=== PATIENT | male | born 1940 | race Caucasian/White ===

== ENCOUNTER 2017-02-21 10:45 | Outpatient (CLI) | payer MEDICARE ==
--- OUTSIDE RECORDS SUMMARY | 2017-02-21 10:48 | XMS | Continuity of Care Document ---
:1940 Author Organization [facility] Care Team Providers Name Role Phone NOLOCAL, PRIMARY Primary Care Physician Unavailable Insurance Providers Payer Name Policy Number Subscriber Name Relationship [employer] PPO [id number] DAVID HERNANDEZ SELF/SAME PATIENT FOR LIFE 2ND TO [employer] [id number] DAVID HERNANDEZ SELF/SAME PATIENT Advance Directives Directive Response Recorded Date/Time Advance Directive? N 09/25/16 7:33am Living Will? N 09/25/16 7:33am Health Care Proxy? N 09/25/16 7:33am Healthcare Power of Receivables Specialist? N 09/25/16 7:33am Is the patient an Organ Donor? N 09/25/16 7:33am Chief Complaint and Reason for Visit Reason for Visit TICK BITE Problems Active Medical Problems Problem Onset Date Recorded Date Status Superficial foreign body of scrotum Unknown 09/25/16 Active Tick bite of scrotum Unknown 09/25/16 Active Active Surgical Problems Problem Onset Date Recorded Date Status S/P laparoscopic cholecystectomy Unknown 07/13/15 Active Medications Current Home Medications Medication Dose Units Route Directions Days/Qty Instructions Start Date ASCORBIC ACID (VITAMIN 500 MG PO EVERY DAY @ C 500 MG) 500 MG CHW 0900 ASPIRIN (ASPIRIN 81 MG 81 MG PO EVERY DAY @ (LOW DOSE)) 81 MG TAB 0900 COENZYME Q10 50 MG PO EVERY DAY @ (UBIDECARENONE) 0900 (COENZYME Q-10 50 MG CAP) 50 MG CAP Doxycycline 100 MG PO TWICE A DAY 14 09/25/16 (Monohydrate) (0900; 2100) (Doxycycline) 100 MG CAP Dutasteride (AVODART 0.5 MG PO EVERY EVENING 0.5 MG CAP) 0.5 MG CAP (1700) FLUTICASONE PROPIONATE 50 MCG NA EVERY DAY @ 2 SPRAYS EACH (NASAL) (FLUTICASONE 0900 NOSTRIL NASAL SPRAY) 50 MCG SPR HYDROCHLOROTHIAZIDE 12.5 MG PO EVERY DAY @ (HYDROCHLOROTHIAZIDE 0900 12.5 MG CAP) 12.5 MG CAP Lovastatin (MEVACOR 20 20 MG PO AT BEDTIME MG TAB) 20 MG TAB (2100) Multivitamin (Mvi-12) 1 TAB PO EVERY DAY @ (Mvi) TAB 0900 Mupirocin 2% Top OINT 1 % EX TWICE A DAY 1 09/25/16 (BACTROBAN 2% OINTMENT) (0900; 2100) 2 % OIN [id number] Ethyl 1 GM PO EVERY DAY @ [place] (LOVAZA 1 GM 0900 CAP) 1 GM CAP Pregabalin (LYRICA 50 50 MG PO EVERY DAY @ MG CAP) 50 MG CAP 0900 Pregabalin (LYRICA 50 100 MG PO EVERY EVENING MG CAP) 50 MG CAP (1700) TERAZOSIN HCL 20 MG PO AT BEDTIME (TERAZOSIN 10 MG (2100) CAPSULE) 10 MG CAP Social History Problem Response Recorded Date Recreational drugs? N 07/13/15 Alcohol? N 09/25/16 Query Response Start Date Stop Date Smoking Status: Former Smoker 05/26/62 05/26/67 Hospital Discharge Instructions No hospital discharge instructions. Plan of Care Discharge Date 09/25/16 Disposition HOME/SELF CARE Condition at Discharge STABLE Instructions/Education Provided How to Remove a Tick DI for Removal of Foreign Body From Skin Forms Provided Discharge Form Prescriptions See Medications Section Referrals NOLOCAL,PRIMARY CARE DOC - Additional Instructions/Education Clean area twice a day with soap and water. Apply antibiotic ointment twice a day until area healed. Take Antibiotics as prescribed. Take Tylenol or Ibuprofen as directed for pain. Follow up with PCP in 3 to 4 days if symptoms not improving. Seek Medical Attention if any new, changing or worsening symptoms. Functional Status No functional status results. Allergies, Adverse Reactions, Alerts Allergen Type Severity Reaction Status Last Updated Neomycin Allergy Unknown Active 11/29/13 Penicillins Allergy Unknown Active 01/16/10 Sulfonamide Derivatives Allergy Unknown Active 01/16/10 Immunizations No Known History of Immunizations. Vital Signs Vital Reading Collection Date/Time Result Blood Pressure 09/25/16 10:32am 160/76 Patient Temperature 09/25/16 10:32am 97.8 Temperature Source 09/25/16 7:30am Tympanic Respiratory Rate 07/14/15 10:22am 18 Pulse Rate 09/25/16 10:32am 74 Bedside Pulse Oximetry 09/25/16 10:32am 98 Height 09/25/16 7:30am 182.88 cm Height 09/25/16 7:30am 6 ft 0.00 in Weight 09/25/16 7:30am 86.183 kg Weight 09/25/16 7:30am 190 lb 0.00 oz Body Mass Index 09/25/16 7:30am 25.8 Results No known relevant diagnostic tests, laboratory data and/or discharge summary. Procedures No Known History of Procedures. Encounters Encounter Location Arrival/Admit Date Discharge/Depart Date Attending Provider Departed [place] 09/25/16 7:29am 09/25/16 10:25am Isac Garcia [facility] Anand LONG [facility] Encounter Diagnosis Superficial foreign body of scrotum Tick bite of scrotum
--- NOTE | 2017-02-21 13:07 | SJPRAD ---
CHEST 2 VIEWS: HISTORY: Dyspnea. FINDINGS: The heart size is upper limits of normal. There are arthrosclerotic changes of the aorta. The lung s are clear of infiltrates. There are arthritic changes of the spine. IMPRESSION: No active intrathoracic disease. POS: [facility]
== END 2017-02-21 10:46 | disposition home or self-care (01) ==
LOC: MWLC RAD 10:45
PROVIDERS: ATTEND Internal Medicine Geriatric Medicine
DX: S86.219A Strain of muscle(s) and tendon(s) of anterior muscle group at lower leg level, unspecified leg, initial encounter (principal)

== ENCOUNTER 2017-08-14 14:08 | Outpatient (CLI) | payer MEDICARE | END 2017-08-14 14:09 | disposition home or self-care (01) | LOC: BICULT 14:08 | PROVIDERS: ATTEND Urology | DX: N50.3 Cyst of epididymis (principal); N44.2 Benign cyst of testis; Z88.0 Allergy status to penicillin; Z88.2 Allergy status to sulfonamides; Z88.1 Allergy status to other antibiotic agents; Z88.8 Allergy status to other drugs, medicaments and biological substances | CPT/HCPCS: 76870; 93976 ==

== ENCOUNTER 2018-07-01 09:47 | Outpatient (CLI) | payer MEDICARE ==
--- NOTE | 2018-07-01 10:02 | RAD ---
CHEST TWO VIEWS: Indication: Dyspnea. Comparison: 04-28-18 FINDINGS: Mild cardiomegaly is stable. Chronic lung changes are similar appearing. Multilevel spondylosis of th e thoracic spine is similar appearing. IMPRESSION: Stable exam. POS: [facility]
== END 2018-07-01 09:48 | disposition home or self-care (01) ==
LOC: RAD 09:47
PROVIDERS: ATTEND Internal Medicine Critical Care Medicine
DX: R06.00 Dyspnea, unspecified (principal)
CPT/HCPCS: 71046

== ENCOUNTER 2018-11-25 12:36 | Outpatient (CLI) | payer MEDICARE ==
--- NOTE | 2018-11-25 13:40 | ULT ---
US Testicular W Doppler History: Scrotal edema. Comparison: Testicular ultrasound 2018 Findings: Real-time grayscale, color, and spectral analysis of the testicles was performed. Right testicle measures 4.3 x 3.3 x 3.2 cm and the left testicle measures 4.5 x 2.1 x 3.7 cm. Mild di latation of the rete testes with tubular ectasia and a rete testis cyst. Adequate vascular flow to both testicles. No mass. Large left scrotal varicocele. Impression: 1. 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 2. Left scrotal varicocele. Transcribed Date/Time: 11/25/2018 2:21 PM
== END 2018-11-25 12:37 | disposition home or self-care (01) ==
LOC: BICULT 12:36
PROVIDERS: ATTEND Urology
DX: N50.89 Other specified disorders of the male genital organs (principal); I86.1 Scrotal varices; N44.2 Benign cyst of testis
CPT/HCPCS: 76870; 93976

== ENCOUNTER 2018-12-13 10:04 | Emergency (ER) | payer MEDICARE, OTHER ==
[2018-12-13] MEDS ORDERED: Ketorolac Tromethamine 30 MG/ML VIAL ONE (10:44)
[2018-12-13] MEDS ORDERED: Methocarbamol 1 GM in Sodium Chloride 0.9% 100 ML IVPB SCH (11:00)
[2018-12-13 11:04] LABS: #Lymphocytes 0.6 thou/uL (1.20-3.40); #Monocytes 0.9 thou/uL (0.11-0.59); #Neutrophils 8.6 thou/uL (1.40-6.50); %Basophils 0.1 % (0.0-1.0); %Eosinophils 0.2 % (0.0-10.0); %Lymphocytes 6.3 % (21.0-51.0); %Monocytes 8.9 % (0.0-10.0); %Neutrophils 84.6 % (42.0-75.0); Hemoglobin 10.7 g/dL (14.0-18.0); Mean Corpuscular HGB CONC 33.3 g/dL (32.0-36.0); Mean Corpuscular Hemoglobin 29.4 pg (27.0-31.0); Mean Corpuscular Volume 88.2 fL (78.0-98.0); Mean Platelet Volume 7.1 fL (7.4-10.4); Platelet Count 254 thou/uL (130-400); RBC Distribution Width 12.2 % (11.5-14.5); Red Blood Cell (RBC) Count 3.63 mill/uL (4.70-6.10); White Blood Cell (WBC) Count 10.2 thou/uL (4.8-10.8)
[2018-12-13 11:23] LABS: Bilirubin Negative (Negative); Blood, Urine Negative (Negative); Clarity Clear (Clear); Glucose, Urine (Dipstick) Normal (Negative); Leukocyte Negative Leu/uL (Negative); Nitrite Negative (Negative); Protein, Urine (Dipstick) 20 mg/dL (Neg-Trace); Urobilinogen Normal mg/dL (Less than 2)
[2018-12-13 11:32] LABS: ALT (SGPT) 25 U/L (8-55); AST (SGOT) 19 U/L (5-34); Albumin 3.7 g/dL (3.4-4.8); Alkaline Phosphatase 209 U/L (40-150); Anion Gap 14 mmol/L (10-20); BUN (Urea Nitrogen) 25 mg/dL (8.4-25.7); Bilirubin, Total 0.9 mg/dL (0.2-1.2); Calc. Creatinine Clearance 0 mL/min (70-130); Calcium 9.2 mg/dL (7.8-10.44); Carbon Dioxide 23 mmol/L (23-31); Chloride 101 mmol/L (98-107); Estimated GFR-MDRD 52; Globulin 3.1 g/dL (2.4-3.5); Glucose 102 mg/dL (83-110); Potassium 3.5 mmol/L (3.5-5.1); Protein, Total 6.8 g/dL (5.8-8.1); Sodium 134 mmol/L (136-145)
--- NOTE | 2018-12-13 12:16 | RAD ---
XR Lumbar Spine 2 Or 3 View HISTORY: Back pain that radiates to left leg COMPARISON: None. FINDINGS: The vertebral bodies are normal in height. Degenerative osteophytes are present along the c ourse of the spine. There is mild disc narrowing at L2-3 and marked disc narrowing at L5-S1. Pedicles are intact. Degenerative facet changes are noted. IMPRESSION: Moderate arthritic changes of the spine.
== END 2018-12-13 14:09 | disposition home or self-care (01) ==
LOC: ERS 10:04
DX: M54.42 Lumbago with sciatica, left side (principal); I10 Essential (primary) hypertension; Z79.82 Long term (current) use of aspirin; Z79.899 Other long term (current) drug therapy
CPT/HCPCS: 72100; 80053; 81003; 83880; 84484; 85025; 87086; 93005; 96365; 96375; J1885; J2800; J3490

== ENCOUNTER 2018-12-14 15:25 | Outpatient (CLI) | payer MEDICARE, OTHER ==
--- NOTE | 2018-12-14 16:49 | MRI ---
MRI lumbar spine noncontrast HISTORY: Low back pain with left leg radiculopathy. FINDINGS: Vertebral body heights and alignment are maintained. There are multiple heterogeneous reed s of increased T2 signal and decreased T1 signal throughout the vertebral bodies. There is not associated compromise of the central spinal canal. Conus medullaris has normal appearance. Desiccatio n of all of the intervertebral discs. Images of the partially included retroperitoneum show confluent adenopathy extending into the pelvis. Dilatation of the partially visualized renal collecting structures of each kidney. T12-L1, L1-2: Mild osteophytosis. Central canal and neural foramina are patent. L2-3: Disc space narrowing. Minimal disc bulge. Degenerative changes of the facets. Mild bilateral fo raminal stenoses. L3-4: Minimal disc bulge. Degenerative changes of the facets. Central canal is patent. Mild stenosis of each neural foramen. L4-5: Minimal disc bulge. Osteophytosis of the facets. Central canal is patent. Mild stenosis of each neural foramen. L5-S1: Minimal posterior disc bulge. Degenerative changes of the facets. Mild stenosis of the left ne ural foramen. IMPRESSION: Bulky retroperitoneal adenopathy. Metastatic disease versus lymphomatous process. Please consider oncologic evaluation. Dedicated CT of the chest, abdomen, and pelvis would also be appropriate. 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 Mild degenerative changes without significant nerve root compression.
== END 2018-12-14 15:26 | disposition home or self-care (01) ==
LOC: MRI 15:25
PROVIDERS: ATTEND Internal Medicine Geriatric Medicine
DX: M54.32 Sciatica, left side (principal); R59.0 Localized enlarged lymph nodes; C79.51 Secondary malignant neoplasm of bone; M47.816 Spondylosis without myelopathy or radiculopathy, lumbar region
CPT/HCPCS: 72148

== ENCOUNTER 2018-12-15 17:17 | Inpatient (IN) | payer MEDICARE, OTHER ==
[~2018-12-15 17:17] MED LIST: ISOVUE-370 76%-LOCM 1 ML ONE
[2018-12-15 18:33] LABS: #Eosinphils 0.1 thou/uL (0.0-0.7); #Lymphocytes 0.8 thou/uL (1.20-3.40); #Monocytes 0.7 thou/uL (0.11-0.59); #Neutrophils 6.3 thou/uL (1.40-6.50); %Basophils 0.5 % (0.0-1.0); %Eosinophils 1.7 % (0.0-10.0); %Lymphocytes 10.3 % (21.0-51.0); %Monocytes 9.1 % (0.0-10.0); %Neutrophils 78.4 % (42.0-75.0); Hemoglobin 10.1 g/dL (14.0-18.0); Mean Corpuscular HGB CONC 32.9 g/dL (32.0-36.0); Mean Corpuscular Hemoglobin 28.9 pg (27.0-31.0); Mean Corpuscular Volume 87.7 fL (78.0-98.0); Mean Platelet Volume 7.2 fL (7.4-10.4); Platelet Count 276 thou/uL (130-400); RBC Distribution Width 11.9 % (11.5-14.5); Red Blood Cell (RBC) Count 3.49 mill/uL (4.70-6.10)
[2018-12-15 18:53] LABS: ALT (SGPT) 17 U/L (8-55); AST (SGOT) 13 U/L (5-34); Albumin 3.5 g/dL (3.4-4.8); Alkaline Phosphatase 219 U/L (40-150); Anion Gap 15 mmol/L (10-20); BUN (Urea Nitrogen) 30 mg/dL (8.4-25.7); Bilirubin, Total 0.7 mg/dL (0.2-1.2); Calc. Creatinine Clearance 0 mL/min (70-130); Calcium 8.6 mg/dL (7.8-10.44); Carbon Dioxide 22 mmol/L (23-31); Chloride 97 mmol/L (98-107); Estimated GFR-MDRD 46; Glucose 116 mg/dL (83-110); Potassium 3.6 mmol/L (3.5-5.1); Protein, Total 6.5 g/dL (5.8-8.1); Sodium 130 mmol/L (136-145)
[2018-12-15] MEDS ORDERED: Ketorolac Tromethamine 30 MG/ML VIAL ONE (19:15)
[2018-12-15 19:50] LABS: Bilirubin Negative (Negative); Blood, Urine Negative (Negative); Clarity Clear (Clear); Glucose, Urine (Dipstick) Normal (Negative); Leukocyte Negative Leu/uL (Negative); Nitrite Negative (Negative); Protein, Urine (Dipstick) 10 mg/dL (Neg-Trace); Urobilinogen Normal mg/dL (Less than 2)
--- NOTE | 2018-12-15 20:44 | CT ---
CT CHEST, ABDOMEN AND PELVIS WITH CONTRAST: 12/15/18 INDICATIONS: Follow-up MRI lumbar spine which showed retroperitoneal adenopathy and evidence of osseous metastasis . CT CHEST: Lung arnold show chronic parenchymal changes. Stranding in the posterior lower lobes extending to th e pleural surface appears chronic. No effusion or infiltrate. No pulmonary mass or nodule. No mediast inal adenopathy. Fixed diaphragmatic hernia. Osseous structures unremarkable on CT. IMPRESSION: Chronic lung parenchymal changes. No acute chest abnormality. CT ABDOMEN AND PELVIS: Fixed diaphragmatic hernia is seen as described on chest CT. The liver, spleen, and pancreas unremarkable. Post cholecystectomy changes. Adrenal glands normal. Both kidneys show mild bilateral hydronephrosis. There is evidence of bilateral ureteral obstruction in the pelvis due to adenopathy. The urinary bladder shows abnormal soft tissue mass invading the fl oor of the bladder and involving both UVJ regions. Small bowel loops show nonspecific distention without dilatation. Scattered stool throughout the colo n. Aorta is normal caliber. There is confluent bulky retroperitoneal adenopathy engulfing the aorta with confluent adenopathy see n throughout the abdomen extending to the aortic bifurcation and continuing along both iliac chains i nto the pelvis. Bulky adenopathy within both pelvic sidewalls along the iliac chains. A large confluent lobulated mass in the pelvis which involves the floor of the bladder. This mass me asures 10 cm width x 9 cm AP dimension in the axial plane. The osseous lesion seen in the lumbar spine on MRI are not as well delineated on CT. There are areas of heterogeneity and sclerosis within the vertebral bodies at these sites. No lytic process apparent. IMPRESSION: A large lobulated soft tissue mass in the pelvis involves the floor of the bladder. There is bulky co nfluent adenopathy throughout the retroperitoneum. Findings may represent primary bladder malignancy with associated adenopathy. Lymphoma is also a consideration. This bladder mass is producing bilater al ureteral obstruction. POS: [facility]
[2018-12-15] MEDS ORDERED: Cefepime 2 GM VIAL ONE (22:04)
[2018-12-16] MEDS ORDERED: Ondansetron PF 4 MG/2 ML Vial IVP PRN (00:37)
[2018-12-16] MEDS ORDERED: HYDROcodone/Acetaminophen 5/325 mg Tablet PO PRN ×2 (00:37)
[2018-12-16] MEDS ORDERED: Ondansetron ODT 4 MG TAB SL PRN (00:37)
[2018-12-16] MEDS ORDERED: Ketorolac Tromethamine 30 MG/ML VIAL IVP PRN (00:38)
[2018-12-16] MEDS: Sodium Chloride 0.9% 1,000 ML IV SCH ×3 (00:42→17:10)
[2018-12-16 01:26] VITALS: BMI 27.8
[2018-12-16] MEDS ORDERED: Dextrose 5% in Water 1,000 ML IV PRN (02:16)
[2018-12-16] MEDS ORDERED: Dextrose 50% Abboject 50 ML SYRINGE SLOW IVP PRN (02:16)
[2018-12-16] MEDS ORDERED: HumaLOG 300 UNITS/3 ML VIAL SC PRN ×2 (02:16)
[2018-12-16] MEDS ORDERED: Bisacodyl 10 MG SUPP PR PRN (02:18)
[2018-12-16] MEDS ORDERED: Senokot S 8.6-50 MG TAB PO PRN (02:18)
[2018-12-16] MEDS ORDERED: Acetaminophen 325 MG TAB PO PRN (02:18)
[2018-12-16] MEDS ORDERED: Acetaminophen 650 MG Suppository PR PRN (02:18)
[2018-12-16] MEDS ORDERED: Morphine 2 MG/ML SYRINGE SLOW IVP PRN (02:21)
--- NOTE | 2018-12-16 04:31 | PDOC.FPRHP ---
- History of Present Illness Chief Complaint: Low back pain, new mets History of Present Illness: Mr. Fernández is a pleasant 78 year old man with no known history of malignancy who developed lower back pain several weeks ago that has progressively worsened over the last couple of weeks. The pain has been shifting from radiating to left hip or right hip. He also has occasional pain down his left leg to his thigh. No lower leg weakness. Reports long standing altered sensation in lower legs due to underlying neuropathy without any recent changes. Also has a previous injury to right achiles tendon which has always caused trouble with walking. He reports intermittent urinary incontinence which he states tends to happen if he holds his urine too long and unexpectedly at night while sleeping, requiring him to wear adult depends at night. He denies any hematuria or dysuria. No groin numbness or saddle anesthesia/paraesthesias. Has not experienced any bowel incontinence, though he does suffer from constipation chronically, managed with colace and metamucil without significant improvement. No headaches or dizziness. No blurred vision or speech disturbances. ED Course: He is s/p Lumbar spine xray following by MRI L Spine bulky retroperitoneal adenopathy. Metastatic disease versus lymphomatous process. 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 Osseous metastatic disease to L Spine. Mild degnerative changes without significant nerve root compression. In ED he had a CT CAP: Large lobulated soft tissue mass in the pelvis involving the floor of the bladder. Bulky confluent adenopathy thoughout peritoneum. Mass producing bilateral ureteral obstruction, it measures 10cm x 9 cm. - Allergies/Adverse Reactions Allergies Allergy/AdvReac Type Severity Reaction Status Date / Time Penicillins Allergy Verified 12/16/18 01:23 Sulfa (Sulfonamide Allergy Verified 12/16/18 01:23 Antibiotics) - Home Medications Medication Instructions Recorded Confirmed Type Amlodipine [Norvasc] 5 mg PO QPM 12/16/18 12/16/18 History Aspirin 81 mg PO DAILY 12/16/18 12/16/18 History Calcium Carb/Magnesium Oxid/D3 1 tab DT DAILY 12/16/18 12/16/18 History [Calcium Magnesium + Vitamin D] Ergocalciferol [Drisdol] 1.25 mg PO SEEPHYS 12/16/18 12/16/18 History Esomeprazole Magnesium [NexIUM] 40 mg PO ASDIR 12/16/18 12/16/18 History Fluticasone Propionate [Flonase 2 spray INH DAILY 12/16/18 12/16/18 History Nasal [place]] Glucosam/Chondr-Msm1/D3/C/Rex 1 tab PO DAILY 12/16/18 12/16/18 History [Glucosamine Chondroitin Complex] Lovastatin [Mevacor] 20 mg PO HS 12/16/18 12/16/18 History Multivit-Min/FA/Lycopen/Lutein 1 tab PO DAILY 12/16/18 12/16/18 History [Centrum Silver Tablet] Pregabalin [Lyrica] 50 mg PO SEEPHYS 12/16/18 12/16/18 History Selenium 100 mcg PO DAILY 12/16/18 12/16/18 History Tadalafil 5 mg PO HS 12/16/18 12/16/18 History Ubidecarenone [Co Q-10] 100 mg PO DAILY 12/16/18 12/16/18 History Valsartan/Hydrochlorothiazide 1 tablet PO DAILY 12/16/18 12/16/18 History [Diovan HCT] - History PMHx: PSHx: FHx: Social: - Vital signs BP: [] HR: [] RR: [] Tmax: [] Pox: []% on [] Wt: [] - Physical Exam Constitutional: NAD, awake, alert and oriented, well developed HEENT: normocephalic and atraumatic, PERRLA, EOMI, no scleral icterus, normal nasal mucosa, MMM, oropharynx clear Neck: supple Chest: no-tender to palpation Heart: RRR, normal S1/S2, pulses present, no edema Lungs: CTAB, no respiratory distress, good air movement, no rales/rhonchi, no wheezing, no retractions Abdomen: soft, non-tender, bowel sounds present, no masses/distention Musculoskeletal: normal structure, normal tone, ROM grossly normal Neurological: no focal deficit, CN II-XII intact Skin: no rash/lesions, good turgor Psychiatric: normal mood and affect, good judgment and insight FMR H&P: Results - Labs Result Diagrams: 12/15/18 18:14 12/15/18 18:14 Lab results: WBC 8.0 thou/uL (4.8-10.8) 12/15/18 18:14 Hgb 10.1 g/dL (14.0-18.0) L 12/15/18 18:14 Hct 30.6 % (42.0-52.0) L 12/15/18 18:14 MCV 87.7 fL (78.0-98.0) 12/15/18 18:14 Plt Count 276 thou/uL (130-400) 12/15/18 18:14 Neutrophils % 78.4 % (42.0-75.0) H 12/15/18 18:14 Sodium 130 mmol/L (136-145) L 12/15/18 18:14 Potassium 3.6 mmol/L (3.5-5.1) 12/15/18 18:14 Chloride 97 mmol/L (98-107) L 12/15/18 18:14 Carbon Dioxide 22 mmol/L (23-31) L 12/15/18 18:14 BUN 30 mg/dL (8.4-25.7) H 12/15/18 18:14 Creatinine 1.48 mg/dL (0.7-1.3) H 12/15/18 18:14 Glucose 116 mg/dL (83-110) H 12/15/18 18:14 Lactic Acid 0.8 mmol/L (0.5-2.2) 12/15/18 18:31 Calcium 8.6 mg/dL (7.8-10.44) 12/15/18 18:14 Total Bilirubin 0.7 mg/dL (0.2-1.2) 12/15/18 18:14 AST 13 U/L (5-34) 12/15/18 18:14 ALT 17 U/L (8-55) 12/15/18 18:14 Alkaline Phosphatase 219 U/L (40-150) H 12/15/18 18:14 Serum Total Protein 6.5 g/dL (5.8-8.1) 12/15/18 18:14 Albumin 3.5 g/dL (3.4-4.8) 12/15/18 18:14 Urine Ketones Negative mg/dL (Negative) 12/15/18 19:37 Urine Blood Negative (Negative) 12/15/18 19:37 Urine Nitrite Negative (Negative) 12/15/18 19:37 Ur Leukocyte Esterase Negative Arin/uL (Negative) 12/15/18 19:37 FMR H&P: Upper Level - Plan Date/Time: 12/16/18 0425 I, [], have evaluated this patient and agree with findings/plan as outlined by pharmacy intern resident. Pertinent changes/additions are listed here.
--- NOTE | 2018-12-16 04:55 | PDOC.EVN ---
Event Note - Event Note Event Note: Patient Name: DAVID FERNÁNDEZ Date of : 1940 Patient Status: Observation Attending Provider: Susu Delacruz Date: 12/16/18 04:25 Initialization Date: 12/16/18 04:25 DICTATION SYSTEM DOWN. THIS SERVES H&P. - History of Present Illness Chief Complaint: Low back pain, new mets History of Present Illness: Mr. Fernández is a pleasant 78 year old man with no known history of malignancy who developed lower back pain several weeks ago that has progressively worsened over the last couple of weeks. The pain has been shifting from radiating to left hip or right hip. He also has occasional pain down his left leg to his thigh. No lower leg weakness. Reports long standing altered sensation in lower legs due to underlying neuropathy without any recent changes. Also has a previous injury to right achiles tendon which has always caused trouble with walking. He reports intermittent urinary incontinence which he states tends to happen if he holds his urine too long and unexpectedly at night while sleeping, requiring him to wear adult depends at night. He denies any hematuria or dysuria. No groin numbness or saddle anesthesia/paraesthesias. Has not experienced any bowel incontinence, though he does suffer from constipation chronically, managed with colace and metamucil without significant improvement. No headaches or dizziness. No blurred vision or speech disturbances. ED Course: He is s/p Lumbar spine xray following by MRI L Spine bulky retroperitoneal adenopathy. Metastatic disease versus lymphomatous process. 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 Osseous metastatic disease to L Spine. Mild degnerative changes without significant nerve root compression. In ED he had a CT CAP: Large lobulated soft tissue mass in the pelvis involving the floor of the bladder. Bulky confluent adenopathy thoughout peritoneum. Mass producing bilateral ureteral obstruction, it measures 10cm x 9 cm. - Allergies/Adverse Reactions Allergies Allergy/AdvReac Type Severity Reaction Status Date / Time Penicillins Allergy Verified 12/16/18 01:23 Sulfa (Sulfonamide Allergy Verified 12/16/18 01:23 Antibiotics) - Home Medications Medication Instructions Recorded Confirmed Type Amlodipine [Norvasc] 5 mg PO QPM 12/16/18 12/16/18 History Aspirin 81 mg PO DAILY 12/16/18 12/16/18 History Calcium Carb/Magnesium Oxid/D3 1 tab DT DAILY 12/16/18 12/16/18 History [Calcium Magnesium + Vitamin D] Ergocalciferol [Drisdol] 1.25 mg PO SEEPHYS 12/16/18 12/16/18 History Esomeprazole Magnesium [NexIUM] 40 mg PO ASDIR 12/16/18 12/16/18 History Fluticasone Propionate [Flonase 2 spray INH DAILY 12/16/18 12/16/18 History Nasal [place]] Glucosam/Chondr-Msm1/D3/C/Rex 1 tab PO DAILY 12/16/18 12/16/18 History [Glucosamine Chondroitin Complex] Lovastatin [Mevacor] 20 mg PO HS 12/16/18 12/16/18 History Multivit-Min/FA/Lycopen/Lutein 1 tab PO DAILY 12/16/18 12/16/18 History [Centrum Silver Tablet] Pregabalin [Lyrica] 50 mg PO SEEPHYS 12/16/18 12/16/18 History Selenium 100 mcg PO DAILY 12/16/18 12/16/18 History Tadalafil 5 mg PO HS 12/16/18 12/16/18 History Ubidecarenone [Co Q-10] 100 mg PO DAILY 12/16/18 12/16/18 History Valsartan/Hydrochlorothiazide 1 tablet PO DAILY 12/16/18 12/16/18 History [Diovan HCT] - History PMHx: 1. Hypertension 2. Diabetes, type 2 3. BPH. PSHx: 1. Appendectomy. 2. Right achiles tendon repair. 3. Inguinal hernia repair. 4. Cholecystectomy. 5. Right shoulder surgery. 6. Bilateral cataract surgery. 7. Basal cell carcinoma excision. 8. Heart catheterization. Social: Previous smoker. Quit >50 years ago. No heavy/daily alcohol. No drug use. - Vital signs BP: [144/69] HR: [81] RR: [18] Tmax: [99.4] Pox: [98%]% on [RA] - Physical Exam Constitutional: NAD, awake, alert and oriented, well developed HEENT: normocephalic and atraumatic, PERRLA, EOMI, no scleral icterus, normal nasal mucosa, MMM, oropharynx clear Neck: supple Chest: no-tender to palpation Heart: RRR, normal S1/S2, pulses present, no edema Lungs: CTAB, no respiratory distress, good air movement, no rales/rhonchi, no wheezing, no retractions Abdomen: soft, non-tender, bowel sounds present, no masses/distention Musculoskeletal: normal structure, normal tone, ROM grossly normal Neurological: no focal deficit, CN II-XII intact Skin: no rash/lesions, good turgor Psychiatric: normal mood and affect, good judgment and insight - Labs Result Diagrams: 12/15/18 18:14 12/15/18 18:14 Lab results: WBC 8.0 thou/uL (4.8-10.8) 12/15/18 18:14 Hgb 10.1 g/dL (14.0-18.0) L 12/15/18 18:14 Hct 30.6 % (42.0-52.0) L 12/15/18 18:14 MCV 87.7 fL (78.0-98.0) 12/15/18 18:14 Plt Count 276 thou/uL (130-400) 12/15/18 18:14 Neutrophils % 78.4 % (42.0-75.0) H 12/15/18 18:14 Sodium 130 mmol/L (136-145) L 12/15/18 18:14 Potassium 3.6 mmol/L (3.5-5.1) 12/15/18 18:14 Chloride 97 mmol/L (98-107) L 12/15/18 18:14 Carbon Dioxide 22 mmol/L (23-31) L 12/15/18 18:14 BUN 30 mg/dL (8.4-25.7) H 12/15/18 18:14 Creatinine 1.48 mg/dL (0.7-1.3) H 12/15/18 18:14 Glucose 116 mg/dL (83-110) H 12/15/18 18:14 Lactic Acid 0.8 mmol/L (0.5-2.2) 12/15/18 18:31 Calcium 8.6 mg/dL (7.8-10.44) 12/15/18 18:14 Total Bilirubin 0.7 mg/dL (0.2-1.2) 12/15/18 18:14 AST 13 U/L (5-34) 12/15/18 18:14 ALT 17 U/L (8-55) 12/15/18 18:14 Alkaline Phosphatase 219 U/L (40-150) H 12/15/18 18:14 Serum Total Protein 6.5 g/dL (5.8-8.1) 12/15/18 18:14 Albumin 3.5 g/dL (3.4-4.8) 12/15/18 18:14 Urine Ketones Negative mg/dL (Negative) 12/15/18 19:37 Urine Blood Negative (Negative) 12/15/18 19:37 Urine Nitrite Negative (Negative) 12/15/18 19:37 Ur Leukocyte Esterase Negative Arin/uL (Negative) 12/15/18 19:37 - Impression/Plan 1. Low back pain. Secondary to new metastasis. Discontinued toradol due to renal insufficiency. Will give hydrocodone 10/325 mg for mild/moderate pain and morphine 4 mg PRN for severe pain. No neuro deficits at present, except for bladder incontinence which is likely due to large bladder mass rather than due to spinal mets. 2. GABRIELLE. Gentle hydration. Patient with new bladder mass/lymphadenopathy causing ureteral obstruction. Patient still urinating. Mild hydronephrosis on CT. Urology consult placed. 3. New bladder mass. Possibly bladder cancer, metastatic. Consult placed to Oncology and as mentioned to Urology. He follows with Dr. Figueroa for BPH and Dr. Lin. Recent colonoscopy in 03/2018 with polyps removed. 4. Hypertension. Resume home meds and monitor BP. 5. Diabetes. Hold home meds due to renal function. Insulin sliding scale and monitor glucose. 6. GI Prophylaxis. 7. DVT prophylaxis. Garcia myrick. Hold on pharmacoprophylaxis given possibility of procedures/biopsy. 8. Code Status: FULL. Consider palliative care consult for advanced directives/complex decision making. DIC
[2018-12-16] MEDS: HYDROcodone/Acetaminophen 10/325 mg Tablet PO PRN ×5 (05:12→21:41)
[2018-12-16 05:47] LABS: #Eosinphils 0.1 thou/uL (0.0-0.7); #Lymphocytes 1.1 thou/uL (1.20-3.40); #Monocytes 0.7 thou/uL (0.11-0.59); #Neutrophils 6.3 thou/uL (1.40-6.50); %Basophils 0.3 % (0.0-1.0); %Eosinophils 1.6 % (0.0-10.0); %Lymphocytes 13.2 % (21.0-51.0); %Monocytes 8.7 % (0.0-10.0); %Neutrophils 76.2 % (42.0-75.0); Hemoglobin 9.6 g/dL (14.0-18.0); Mean Corpuscular HGB CONC 31.9 g/dL (32.0-36.0); Mean Corpuscular Hemoglobin 28.2 pg (27.0-31.0); Mean Corpuscular Volume 88.3 fL (78.0-98.0); Mean Platelet Volume 7.4 fL (7.4-10.4); Platelet Count 282 thou/uL (130-400); RBC Distribution Width 12.1 % (11.5-14.5); Red Blood Cell (RBC) Count 3.42 mill/uL (4.70-6.10); White Blood Cell (WBC) Count 8.2 thou/uL (4.8-10.8)
[2018-12-16 06:09] LABS: Anion Gap 14 mmol/L (10-20); BUN (Urea Nitrogen) 28 mg/dL (8.4-25.7); Calc. Creatinine Clearance 57 mL/min (70-130); Calcium 8.6 mg/dL (7.8-10.44); Carbon Dioxide 24 mmol/L (23-31); Chloride 98 mmol/L (98-107); Estimated GFR-MDRD 51; Glucose 89 mg/dL (83-110); Potassium 3.5 mmol/L (3.5-5.1); Sodium 132 mmol/L (136-145)
[2018-12-16] MEDS: Pregabalin 50 MG CAP PO SCH ×2 (08:09→19:46)
[2018-12-16] MEDS: Hydrochlorothiazide 25 MG TAB PO SCH (08:10)
[2018-12-16] MEDS: Ubidecarenone 50 MG CAP PO SCH (08:10)
[2018-12-16] MEDS: Famotidine/PF 20 mg/2ml Vial SLOW IVP SCH (08:10)
[2018-12-16] MEDS: Valsartan 80 MG TAB PO SCH (08:10)
[2018-12-16] MEDS ORDERED: Famotidine/PF 20 mg/2ml Vial SLOW IVP SCH (09:00)
[2018-12-16] MEDS ORDERED: Cefepime 2 GM in Sodium Chloride 0.9% 100 ML IVPB SCH (10:00)
--- NOTE | 2018-12-16 14:52 | PRG ---
DATE OF SERVICE: 12/16/2018 SUBJECTIVE: The patient is seen and examined at the bedside. There were several family members in the room during my visit. The patient states that his pain is quite well controlled on his pain medications at this time. OBJECTIVE: VITAL SIGNS: Blood pressure is 128/62, pulse is 68, temperature is 98.4, respirations 16, O2 saturation is 96% on room air. HEENT: His head is atraumatic and normocephalic. Eyes are PERRLA. Sclerae are nonicteric. Conjunctivae palish. Oral mucosa is moist. NECK: Supple. LUNGS: Clear. HEART: S1, S2 normal. ABDOMEN: Soft, nontender, nondistended. EXTREMITIES: No clubbing. There is some 1+ peripheral edema, especially on the left side. NEUROLOGIC: He is alert and oriented x4. There is no any motor or sensory deficits present. Cranial nerves are intact. LABORATORY DATA: Showed white count of 8.2, hemoglobin 9.6, hematocrit 30.2, platelet count is 282,000. Sodium of 132, potassium 3.5, chloride 98, CO2 of 24, BUN 28, creatinine 1.35. Glucose is within normal limits. Calcium 8.6. Microbiology; blood cultures x2, no growth. Urine culture x1, no growth at 12 hours. IMPRESSION: 1. 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 He is controlled with hydrocodone and p.r.n. morphine. 2. Acute kidney injury, mild hydronephrosis bilaterally. 3. Urinary bladder tumor. 4. Hypertension. PLAN: We are awaiting for Dr. Lin, who is aware of the patient. He is going to come and set him up for most likely a cystoscopy and biopsy of the tumor and stents in both ureters to relieve the mild hydronephrosis. The patient was seen by Oncology team and we are awaiting biopsy at this point. I am going to start the patient on Senokot routine dosing since he will most likely get constipated from his high dose of [place] he is taking at this point, and we will continue his other medications with amlodipine, vitamin D, Pregabalin, Zocor, and Diovan. Going to stop his sliding scale and Accu-Cheks because he is not a diabetic. Job ID: [id number]
--- NOTE | 2018-12-16 15:41 | CON ---
DATE OF CONSULTATION: REASON FOR CONSULT: Bladder mass. HISTORY OF PRESENT ILLNESS: Mr. Fernández is a pleasant 78-year-old gentleman, who over the last several weeks has developed lower back pain, left lower leg weakness, and urinary incontinence. He is being worked up by his primary care physician and Dr. Lin. He underwent a lumbar spine MRI yesterday in the outpatient setting. It showed bulky retroperitoneal adenopathy. There were metastatic lesions in the lumbar spine. There was a bilateral ureteral obstruction due to retroperitoneal adenopathy. There was no central canal compromise. He was sent to the emergency room for further workup and evaluation. He then underwent a chest, abdomen, and pelvis CT, confirming the bilateral hydronephrosis. There was an abnormal soft tissue mass invading the floor of the bladder, it was measured 10 x 9 cm. He has been getting Leggett for pain control and is feeling better. Dr. Lin has been consulted for bladder biopsy. PAST MEDICAL HISTORY: 1. Hypertension. 2. Diabetes mellitus type 2. 3. BPH. PAST SURGICAL HISTORY: 1. Appendectomy. 2. Achilles tendon repair. 3. Hernia repair. 4. Cholecystectomy. 5. Right shoulder surgery. 6. Cataract surgery. 7. Basal cell excision. 8. Cardiac catheterization. ALLERGIES: TO PENICILLIN AND SULFA. HOME MEDICATIONS: 1. Norvasc 5 mg daily. 2. Aspirin 81 daily. 3. Drisdol daily. 4. Prilosec daily. 5. Lovastatin daily. 6. Lyrica daily. 7. Selenium daily. 8. CoQ10 daily. 9. Valsartan/hydrochlorothiazide daily. FAMILY HISTORY: Noncontributory. SOCIAL HISTORY: Remote history of smoking. No alcohol or illicit drug use. REVIEW OF SYSTEMS: CONSTITUTIONAL: No fever, chills, or night sweats. EYES: No blurred or double vision. ENT: No pain, hoarseness, sore throat, or dysphagia. CV: No chest pain, palpitations, or syncope. RESPIRATORY: No shortness of breath, dyspnea on exertion, or orthopnea. GI: No nausea, vomiting, diarrhea, constipation, or abdominal pain. : Positive for dysuria. No hematuria. MUSCULOSKELETAL: Positive for back and leg pain. SKIN: No rash or pruritus. HEMATOLOGIC: No bleeding, bruising, or clotting. NEUROLOGIC: Positive for weakness. No headache. Positive for numbness and tingling on his feet. PHYSICAL EXAMINATION: VITAL SIGNS: Temperature is 98.4, pulse is 68, respiratory rate is 16, and BP is 128/62. He is 96% on room air. GENERAL: This is a well-developed, well-nourished male, in no acute distress. HEENT: Normocephalic and atraumatic. Pupils are equal and reactive to light. NECK: Supple. CV: Regular rate and rhythm. LUNGS: Clear. ABDOMEN: Soft and nontender. Bowel sounds are positive. EXTREMITIES: No clubbing, cyanosis, or edema. SKIN: No rash. HEMATOLOGIC: No petechiae or purpura. NEUROLOGIC: He does have some left weakness, 4/5. PSYCH: He is alert and oriented. PERTINENT LABS AND X-RAYS: Current WBCs are 8.2, hemoglobin 9.6, hematocrit 30.2, platelet count 282,000, 76% neutrophils, and 13% lymphocytes. Sodium is 132, potassium is 3.5, chloride is 98, CO2 is 24, BUN is 28, creatinine is 1.35, lactic acid is 0.8, calcium is 8.6, bilirubin is 0.7, AST is 13, ALT is 17, and alkaline phosphatase is 219. Troponin is negative and BNP is 477. Serum total protein 6.5, albumin 3.5, and globulin 3.0. ASSESSMENT: Large bladder mass with bone and lymph node mass. DISCUSSION: Dr. Lin has been consulted. Plan is to do biopsy of his bladder mass. The patient's pain is being controlled with Leggett. We will discuss the lumbar MRI with Dr. Figueroa. There does not appear to be any area that can be radiated for pain relief. We will have further recommendations based on pathology results. Thank you for the consult. We will follow along with his hospital course. Job ID: [id number]
[2018-12-16] MEDS: CEFAZOLIN 2 GM in Sodium Chloride 0.9% 100 ML IVPB SCH (17:47)
[2018-12-16] MEDS: Amlodipine 5 MG TAB PO SCH (19:45)
[2018-12-16] MEDS: Simvastatin 5 MG TAB PO SCH (19:45)
[2018-12-16] MEDS: Senokot S 8.6-50 MG TAB PO SCH (19:45)
--- NOTE | 2018-12-16 23:31 | CON ---
DATE OF CONSULTATION: 12/16/2018 CONSULTING PHYSICIAN: Sada Ledesma MD REASON FOR CONSULTATION: Bladder mass. HISTORY OF PRESENT ILLNESS: Mr. Fernández is an 78-year-old white male, who is well known to me for a history of previous urinary complaints. He has had problems with poor flow with urinary frequency and occasional urge incontinence. He presented to my office on November 16, at which time, he was complaining of scrotal swelling and swelling on the penis as well as lower extremity swelling. It was not entirely clear at that time where that was coming from. We did order a scrotal ultrasound, which did not show any specific abnormalities. We had talked about treatment of BPH more aggressively, but decided to work him up first with a cystoscopy and TRUS. This was scheduled for December, but unfortunately, the patient had progressively worsening back pain to the point where he could not tolerate. He went to see his PCP, who ordered an MRI of his back to see if he had a herniated disk, which demonstrated a mass along the spine. She then ordered a CT of the chest, abdomen, pelvis, which demonstrated a large pelvic mass with several enlarged lymph nodes throughout the retroperitoneum and abdomen. The patient was then sent to the emergency room where he was admitted to the hospital on the Oncology ca. He does have evidence of bilateral hydronephrosis on CT with a pelvic mass, which appears to be invading the posterior bladder wall. I have been consulted for further assistance on this issue. On my discussion with the patient, he states that he is having a lot of back pain. He is still urinating approximately between 150 to 200 mL at a time, although he states that he has to urinate almost every hour. He is still having some difficulty with urination. He denies having any blood in his urine. Urinalysis done at the time of the office visit in October did not demonstrate any hematuria and was completely normal. Urinalysis here also was normal. The patient also reports that he has been having fevers as well as night sweats at home. He has not lost a significant amount of weight, but states he has a very poor appetite currently. He continues to have some scrotal edema, although it is better than before. He still has some lower extremity edema as well. HOME MEDICATIONS: 1. Lovastatin. 2. Nexium. 3. Amlodipine. 4. Ergocalciferol. 5. Diovan. 6. Coenzyme Q10. 7. Tadalafil. 8. Selenium. 9. Lyrica. 10. Multivitamin. 11. Chondroitin and glucosamine. 12. Flonase. 13. Calcium plus vitamin D. 14. Aspirin. ALLERGIES: 1. PENICILLIN. 2. SULFA. PAST MEDICAL HISTORY: 1. Hypertension. 2. Hyperlipidemia. 3. Gastroesophageal reflux disease. 4. BPH. 5. Hiatal hernia. 6. COPD. 7. Colon polyps. PAST SURGICAL HISTORY: 1. Genevieve fundoplication. 2. Inguinal hernia repair. 3. Cholecystectomy. 4. Keratosis removal. 5. Basal cell carcinoma removal. 6. Appendectomy. 7. Right knee meniscus repair. 8. Cataract surgery. 9. Heart catheterization. 10. Anterior tibialis tendon rupture repair. 11. EGD/colonoscopy. FAMILY HISTORY: Significant for diabetes and stroke as well as heart disease with a daughter with breast cancer. SOCIAL HISTORY: The patient is a former smoker, but quit in 1967. Denies illicit drugs. Drinks alcohol socially only. REVIEW OF SYSTEMS: A 12-point review of systems is unremarkable other than what was commented on the HPI, specifically the fevers, night sweats, poor appetite, lower extremity swelling, scrotal edema and back pain. Remainder of review of systems is otherwise negative. PHYSICAL EXAMINATION: GENERAL: Appears uncomfortable, is communicative, appears stated age. Answering questions appropriately. Well nourished, well developed. HEENT: Normocephalic, atraumatic. Pupils are symmetric and round. Sclerae nonicteric. Trachea midline. Moist mucous membranes. CARDIOVASCULAR: Regular rate and rhythm. Normal S1 and S2. Symmetric pulses. CHEST: No increased work of breathing. Symmetric expansion of the lungs, clear anteriorly. ABDOMEN: Soft, nontender, and nondistended. Positive bowel sounds. No hepatosplenomegaly. No hernias. GENITOURINARY: There is mild scrotal edema with mild penile edema. Some suprapubic fullness. Otherwise, testicles are bilaterally nontender. RECTAL: Deferred at this time. EXTREMITIES: No clubbing or cyanosis. 1+ edema bilaterally. MUSCULOSKELETAL: No obvious joint deformities or joint erythema noted. Full range of motion, 4/5 strength. NEUROLOGIC: Cranial nerves 2 through 12 grossly intact. No focal or sensory motor deficits identified. SKIN: Warm and dry. No rashes or lesions. Good turgor. LYMPHS: No obvious supraclavicular or inguinal lymphadenopathy. PSYCHIATRIC: Alert and oriented x3. Appropriate mood and affect. LABORATORY EVALUATION: The full set of labs are in the [facility] system, which I have reviewed. Of note, the patient's white count is 8.2 with hemoglobin 9.6, platelet count of 282. Creatinine is 1.35. Urinalysis is completely normal. Imaging, CT chest, abdomen and pelvis from December 15 demonstrates a large lobulated soft tissue mass in the pelvis involving the floor of the bladder. There is bulky confluent adenopathy throughout the retroperitoneum. Findings may be consistent with a primary bladder mass or possibly lymphoma. The bladder mass is producing bilateral ureteral obstruction with bilateral hydronephrosis. 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 Bladder cancer is extremely unlikely given the patient has had normal urinalysis on multiple occasions without any reported history of hematuria. The patient will need a tissue diagnosis for confirmation, which should be easily accessible via the rectum. I would recommend that the patient go to the operating room tomorrow, where we will perform a cystoscopy to ensure that he does not have any kind of bladder cancer or bladder source. If there is obvious mass within the bladder, we can resect this via transurethral resection. If the ureters are identifiable, we can attempt to place ureteral stents bilaterally for relief of the obstruction. If ureters cannot be identified or ureteral stent cannot be passed, then the patient will likely require bilateral nephrostomy tubes. If tissue samples cannot be obtained from the bladder and there is no obvious mucosal abnormalities, then, I will attempt to perform a transrectal pelvic mass guided biopsy in the same fashion of how a prostate biopsy is performed. He will require an enema preoperatively and we will give him levofloxacin in addition to the Ancef that he is already receiving. This procedure should be able to be done while on a baby aspirin as the bleeding risk should be nominal. I have discussed all of these procedures with the patient and he states he would like to proceed forward. Risks of the surgery were discussed, which include, but are not limited to significant bleeding, infection, damage to the urethra, bladder or bladder perforation, rectal injury, intraabdominal bleeding, nondiagnostic results, ureteral injury, and need for further procedures. We will plan to take him to the operating room tomorrow for the above-listed procedures. Job ID: [id number]
[2018-12-17] MEDS: CEFAZOLIN 2 GM in Sodium Chloride 0.9% 100 ML IVPB SCH (01:55)
[2018-12-17] MEDS: HYDROcodone/Acetaminophen 10/325 mg Tablet PO PRN ×4 (01:56→21:44)
[2018-12-17] MEDS: Sodium Chloride 0.9% 1,000 ML IV SCH ×3 (01:56→21:52)
[2018-12-17] MEDS: Diabetic Tussin 200 MG/10 ML UDCUP PO PRN (06:06)
--- NOTE | 2018-12-17 07:21 | PDOC.HOSPP ---
- Subjective Subjective: urinary frequency, fever, some cough - Objective Vital Signs & Weight: Vital Signs (12 hours) Temp Pulse Resp BP Pulse Ox 12/17/18 05:32 98.1 F 12/16/18 21:43 98.6 F 12/16/18 20:00 100.3 F H 74 18 125/56 L 99 Weight Weight 205 lb I&O: 12/16/18 12/17/18 12/18/18 06:59 06:59 06:59 Intake Total 1450 Output Total 800 Balance 650 Result Diagrams: 12/16/18 03:59 12/16/18 03:59 Additional Labs: Accuchecks 12/16/18 12:32 POC Glucose 85 ROS - Review of Systems All systems: All other ROS were reviewed and found negative. - Medication Medications: Active Medications Generic Name Dose Route Start Last Admin Trade Name Freq PRN Reason Stop Dose Admin Acetaminophen 650 mg 12/16/18 02:18 12/16/18 19:45 Tylenol PO 650 mg Q4H PRN Administration Headache/Fever/Mild Pain (1-3) Hydrocodone Bitart/Acetaminophen 1 tab 12/16/18 02:23 12/17/18 05:27 [place] 10/325 PO 1 tab Q4H PRN Administration Moderate Pain (4-6) Amlodipine Besylate 5 mg 12/16/18 21:00 12/16/18 19:45 Norvasc PO 5 mg QPM ABRAHAM Administration Coenzyme Q10 100 mg 12/16/18 09:00 12/16/18 08:10 Coenzyme Q10 PO Not Given DAILY ABRAHAM Famotidine 20 mg 12/16/18 09:00 12/16/18 08:10 Pepcid SLOW IVP 20 mg DAILY ABRAHAM Administration Guaifenesin 200 mg 12/17/18 05:43 12/17/18 06:06 Robitussin Sf PO 200 mg Q8H PRN Administration Cough Hydrochlorothiazide 25 mg 12/16/18 09:00 12/16/18 08:10 Hydrochlorothiazide PO 25 mg DAILY ABRAHAM Administration Sodium Chloride 1,000 mls @ 100 mls/hr 12/16/18 15:30 12/17/18 01:56 Normal Saline 0.9% IV 1,000 mls .Q10H ABRAHAM Administration Pregabalin 50 mg 12/16/18 09:00 12/16/18 08:09 Lyrica PO 50 mg QAM ABRAHAM Administration Pregabalin 100 mg 12/16/18 21:00 12/16/18 19:46 Lyrica PO 100 mg QPM ABRAHAM Administration Senna/Docusate Sodium 2 tab 12/16/18 21:00 12/16/18 19:45 Senokot S PO 2 tab BID ABRAHAM Administration Simvastatin 10 mg 12/16/18 21:00 12/16/18 19:45 Zocor PO 10 mg HS ABRAHAM Administration Sodium Chloride 10 ml 12/16/18 09:00 12/16/18 19:46 Flush - Normal Saline IVF Not Given Q12HR ABRAHAM Valsartan 320 mg 12/16/18 09:00 12/16/18 08:10 Diovan PO 320 mg DAILY ABRAHAM Administration - Exam NAD Neck: no JVD Heart: RRR, no murmur Respiratory: CTAB, no wheezes, no rales, no ronchi Gastrointestinal: soft, non-tender, normal bowel sounds Extremities: no edema Hosp A/P (1) Pelvic mass Code(s): R19.00 - INTRA-ABD AND PELVIC SWELLING, MASS AND LUMP, UNSP SITE Status: Acute Plan: cystoscopy, Bx today (2) Bacteremia Code(s): R78.81 - BACTEREMIA Status: Acute Plan: 1/2 blood C&S pos (3) DM type 2 (diabetes mellitus, type 2) Status: Acute Qualifiers: Diabetes mellitus intermediate school teacher insulin use: without intermediate school teacher use Diabetes mellitus complication status: with kidney complications (4) Metastatic bone cancer Code(s): C41.9 - MALIGNANT NEOPLASM OF BONE AND ARTICULAR CARTILAGE, UNSP Status: Acute (5) Hydronephrosis Code(s): N13.30 - UNSPECIFIED HYDRONEPHROSIS Status: Acute Qualifiers: Hydronephrosis type: unspecified Qualified Code(s): N13.30 - Unspecified hydronephrosis (6) HTN (hypertension) Code(s): I10 - ESSENTIAL (PRIMARY) HYPERTENSION Status: Chronic Qualifiers: Hypertension type: essential hypertension Qualified Code(s): I10 - Essential (primary) hypertension - Plan cystoscopy/ BX today. cont iv antibx pending Sensitivities. monitor renal fcn- acute bs CKD
[2018-12-17] MEDS ORDERED: Fleet Enema 133 ML BOT PR SCH (08:00)
[2018-12-17] MEDS: Pregabalin 50 MG CAP PO SCH ×2 (09:50→21:48)
[2018-12-17] MEDS: Senokot S 8.6-50 MG TAB PO SCH ×2 (09:53→21:50)
[2018-12-17] MEDS: Hydrochlorothiazide 25 MG TAB PO SCH (09:53)
[2018-12-17] MEDS: Famotidine/PF 20 mg/2ml Vial SLOW IVP SCH (09:57)
[2018-12-17] MEDS: Ubidecarenone 50 MG CAP PO SCH ×2 (09:58→10:00)
[2018-12-17] MEDS: Valsartan 80 MG TAB PO SCH (11:17)
[2018-12-17] MEDS: CEFAZOLIN 2 GM, Admixture Fee 1 EACH in Sodium Chloride 0.9% 100 ML IVPB SCH ×2 (11:19→18:18)
[2018-12-17] MEDS ORDERED: PROPOFOL 200 MG/20 ML VIAL ONE (11:34)
[2018-12-17] MEDS ORDERED: Metoclopramide HCl 10 MG/2 ML VIAL ONE (11:34)
[2018-12-17] MEDS ORDERED: ePHEDrine 50 MG/ML VIAL ONE (11:34)
[2018-12-17] MEDS ORDERED: Ondansetron PF 4 MG/2 ML Vial ONE (11:34)
[2018-12-17] MEDS ORDERED: Succinylcholine Chloride 20 MG/ML 10 ml SYRINGE FS ONE (11:34)
[2018-12-17] MEDS ORDERED: Glycopyrrolate 0.2 MG/ML 5 ML SYRINGE ONE (11:34)
[2018-12-17] MEDS ORDERED: Lidocaine 1% PF 5 ML VIAL ONE (11:34)
[2018-12-17] MEDS ORDERED: Rocuronium Bromide 10 MG/ML (10ML VIAL) ONE (11:34)
[2018-12-17] MEDS ORDERED: Fentanyl 100 MCG/2 ML VIAL ONE (15:18)
[2018-12-17] MEDS ORDERED: Levofloxacin 500 mg/D5W 100 ml Premix Bag ONE (15:22)
[2018-12-17] MEDS ORDERED: Famotidine/PF 20 mg/2ml Vial ONE (16:41)
[2018-12-17] MEDS ORDERED: Ondansetron HCl/PF 4 MG/2 ML Vial IVP PRN (16:56)
--- NOTE | 2018-12-17 17:18 | RAD ---
RETROGRADE PYELOGRAM: 12/17/18 INDICATIONS: Fluoroscopic images taken during retrograde study with stent placement. Two images are presented. FINDINGS/IMPRESSION: Initial image show opacification of the right ureter. Partial opacification of the right collecting s tructure. The final image shows bilateral ureteral stents. Residual contrast in the right upper collecting stru ctures on this second image. POS: CHELSEA
[2018-12-17] MEDS: Fleet Enema 133 ML BOT PR SCH (20:52)
[2018-12-17] MEDS: Simvastatin 5 MG TAB PO SCH (21:46)
[2018-12-17] MEDS: Amlodipine 5 MG TAB PO SCH (21:47)
--- NOTE | 2018-12-17 22:00 | OP ---
DATE OF PROCEDURE: 12/17/2018 SERVICE: Urology. PREOPERATIVE DIAGNOSIS: Pelvic mass with bilateral hydronephrosis. POSTOPERATIVE DIAGNOSIS: Pelvic mass with bilateral hydronephrosis. PROCEDURES PERFORMED: Cystoscopy with bilateral ureteral stent placement, 6 x 26 double-J stent, right retrograde pyelogram, and transrectal pelvic mass biopsy. INDICATIONS FOR PROCEDURE: Mr. Fernández is an 78-year-old white male who previously had seen ri for BPH and lower urinary symptoms. He developed scrotal edema which was being worked up during this time, ended up with severe back pain, which was found to be caused by significant retroperitoneal lymphadenopathy and a large pelvic mass. He also had bilateral hydronephrosis. He is now coming to the OR for attempted stent placement, diagnostic cystoscopy, and transrectal biopsy of the mass for tissue diagnosis. Risks and benefits were discussed and he has agreed to proceed forward. DESCRIPTION OF PROCEDURE: After identification of armband and verification of consent, the patient was brought back to the operating room where he underwent general anesthesia with an LMA. He was placed in dorsal lithotomy position and prepped and draped in usual sterile fashion. After appropriate time-out, a lubricated 22-[place] rigid cystoscope was introduced per urethra into the bladder. The prostate was only mildly hypertrophic, but had a high bladder neck, likely secondary to anterior compression from the pelvic mass. The bladder mucosa appeared normal. There were no tumors or irregularities along the mucosa. Grade 2 trabeculation. No cellules or diverticula. There was a large bulge along the right pelvic floor indenting into the bladder, but not through the bladder. The mucosa was normal. Both ureters were identified although they were difficult to identify. The right wound was significantly more deformed than the left. A 5-[place] Pollack catheter was able to be inserted into the distal right ureter and a retrograde pyelogram performed indicating we were indeed within the ureter, which showed significant hydronephrosis and a tortuous ureter. A Sensor wire was advanced through the Pollack catheter up to the level of renal pelvis. The Pollack catheter was then removed and a 6 x 26 double-J stent advanced over the Sensor wire up to the level of renal pelvis. The wire was then removed leaving a good curl in the kidney and a good curl in the bladder. Attention was turned to the left ureteral orifice at which the same procedure was repeated, but without the Pollack catheter or the retrograde pyelogram. The Sensor wire was able to be advanced up with ease. The 6 x 26 double-J stent and then the wire removed leaving curled on both the kidney and bladder portions of the stent. The bladder was then emptied and the cystoscope removed. The patient was then changed to the left lateral decubitus position with the knees tucked up toward the chest. A transrectal ultrasound probe was introduced per rectum with adequate lubrication. The large pelvic mass was seen primarily on the right side of the patient's pelvis with significant anterior compression of the bladder and possible invasion into the prostate. The seminal vesicles could not be identified. Using the transrectal biopsy needle, the mass was biopsied to a total of 10 times from different portions including the middle, anterior, posterior, and lateral aspects of the mass. These were all sent for fresh frozen sections as requested by Dr. Davis, who stated that if this suspected diagnosis is lymphoma, the specimen should not go in formalin. These were all submitted as expeditiously as possible to the pathology lab. The rectal probe was then removed. There was no significant bleeding noted. The patient was then returned back to the supine position. He was awakened, taken to PACU for recovery in stable condition. COMPLICATIONS: None. ESTIMATED BLOOD LOSS: Minimal. RETAINED TUBES AND DRAINS: A 6 x 26 double-J stents bilaterally. SPECIMENS: Transrectal pelvic mass biopsies. DISPOSITION: The patient will be admitted back to the hospital on the Hospitalist Service. We will await the biopsy results to determine what the next best course of action is. I will also monitor his creatinine. If the patient remains hydronephrotic with elevated creatinine despite stents, then I would recommend we performed cystoscopic stent removals and the patient have a percutaneous nephrostomy tubes placed instead. Job ID: [id number]
[2018-12-18] MEDS: CEFAZOLIN 2 GM, Admixture Fee 1 EACH in Sodium Chloride 0.9% 100 ML IVPB SCH ×2 (02:12→09:30)
[2018-12-18] MEDS: Diabetic Tussin 200 MG/10 ML UDCUP PO PRN ×2 (03:56→23:27)
[2018-12-18] MEDS: Pregabalin 50 MG CAP PO SCH ×2 (09:16→21:51)
[2018-12-18] MEDS: Ubidecarenone 50 MG CAP PO SCH (09:17)
[2018-12-18] MEDS: Senokot S 8.6-50 MG TAB PO SCH ×2 (09:17→21:50)
[2018-12-18] MEDS: Oxybutynin ER 5 MG TAB PO SCH (09:18)
[2018-12-18] MEDS: Famotidine/PF 20 mg/2ml Vial SLOW IVP SCH (09:18)
[2018-12-18] MEDS: Valsartan 80 MG TAB PO SCH (09:18)
[2018-12-18] MEDS: Hydrochlorothiazide 25 MG TAB PO SCH (09:18)
[2018-12-18] MEDS: Fleet Enema 133 ML BOT PR SCH (09:19)
[2018-12-18] MEDS: Sodium Chloride 0.9% 1,000 ML IV SCH (09:20)
[2018-12-18] MEDS: HYDROcodone/Acetaminophen 10/325 mg Tablet PO PRN ×4 (09:29→22:26)
[2018-12-18] MEDS: cefTRIAXone\\ROCEPHIN 2 GM in Sodium Chloride 0.9% 100 ML IVPB SCH (13:35)
--- NOTE | 2018-12-18 13:53 | PRG ---
DATE OF SERVICE: 12/18/2018 SUBJECTIVE: The patient is seen and examined at the bedside. He noticed swelling of his testicles. He had some bowel movement. His appetite is somewhat better. OBJECTIVE: VITAL SIGNS: Blood pressure is 167/77, pulse is 74, temperature 99.0, respiratory rate is 18, O2 saturation 99% on room air. HEENT: Head is atraumatic and normocephalic. Skin looks palish. Conjunctivae palish. Oral mucosa is moist. NECK: Supple. LUNGS: Clear. HEART: S1 and S2 normal. No S3. No S4. ABDOMEN: Soft. Mildly distended. No guarding. No masses. EXTREMITIES: 1+ to 2+ peripheral edema. Scrotum swollen. Non-tenderness on palpation. NEUROLOGICAL: He is alert and oriented x4. There is no any sensory or motor deficits. LABORATORY DATA: None. IMPRESSION: 1. Pelvic mass, status post biopsy awaiting for the pathology report to come back. 2. Bacteremia with Streptococcus agalactiae. We are going to switch him from Ancef to Rocephin 2 g every 24 hours. 3. Diabetes mellitus. 4. Metastatic bone cancer. 5. Hydronephrosis, status post bilateral stent placement by Dr. Lin. 6. Peripheral edema and scrotal swelling. We will stop his IV fluids and give him 1 dose of Lasix 40 mg IV push x1, and we will monitor this closely. Awaiting for pathology report. Job ID: [id number]
[2018-12-18] MEDS ORDERED: Furosemide 40 MG/4 ML VIAL SLOW IVP SCH (14:00)
--- NOTE | 2018-12-18 15:57 | PRG ---
DATE OF SERVICE: 12/18/2018 SUBJECTIVE: The patient states that he is feeling well. He has no pain, no rectal bleeding. He does have worsening overactive bladder with urge incontinence, now that he has ureteral stents in. He did undergo bilateral ureteral stenting and transrectal mass biopsy yesterday. OBJECTIVE: VITAL SIGNS: Temperature 99, pulse 74, respirations 18, blood pressure 167/77, saturation 99% on room air. GENERAL: No apparent distress, communicative and alert. CARDIOVASCULAR: Regular rate and rhythm. ABDOMEN: Soft, nontender, and nondistended. Positive bowel sounds. : Worsening scrotal edema with mild dribbling of urine from the penis. EXTREMITIES: 2+ edema bilaterally. ASSESSMENT AND PLAN: An 78-year-old white male with bilateral hydronephrosis and pelvic mass causing ureteral obstruction, status post ureteral stenting and pelvic mass biopsy. The worsening edema is likely attributable to fluid overload. I recommend stopping his IV fluids and the hospitalist has inquired if they can give him Lasix, which I would agree with. I would like to check his creatinine tomorrow to ensure that it is coming down as it should be if the stents are working. I will also order a renal ultrasound. If the ultrasound shows minimal to no hydronephrosis and the creatinine is improved, from my standpoint, I think the patient can be discharged home. If the hydronephrosis is persistent or his creatinine is more elevated with persistent obstruction, then the patient will likely need to have his stents removed and go for percutaneous nephrostomy tubes instead. Per Pathology, the transrectal biopsy results should be available on Friday. Dr. Aj will be on-call over the weekend and I will sign out to him to check in on ultrasound report. Otherwise, from my standpoint, if the patient has improved renal function, he can be discharged home and I will see him on an outpatient basis in approximately 3 to 4 weeks. Job ID: [id number]
[2018-12-18] MEDS: TADALAFIL 5 MG PO SCH (20:47)
[2018-12-18] MEDS: Amlodipine 5 MG TAB PO SCH (21:50)
[2018-12-18] MEDS: Simvastatin 5 MG TAB PO SCH (21:51)
[2018-12-19] MEDS: TADALAFIL 5 MG PO SCH (02:20)
[2018-12-19 06:13] LABS: Anion Gap 16 mmol/L (10-20); BUN (Urea Nitrogen) 29 mg/dL (8.4-25.7); Calc. Creatinine Clearance 30 mL/min (70-130); Calcium 8.4 mg/dL (7.8-10.44); Carbon Dioxide 20 mmol/L (23-31); Chloride 102 mmol/L (98-107); Estimated GFR-MDRD 24; Glucose 99 mg/dL (83-110); Potassium 3.7 mmol/L (3.5-5.1); Sodium 134 mmol/L (136-145)
[2018-12-19] MEDS: Fleet Enema 133 ML BOT PR SCH (08:00)
[2018-12-19] MEDS: Ubidecarenone 50 MG CAP PO SCH (09:34)
[2018-12-19] MEDS: Senokot S 8.6-50 MG TAB PO SCH ×2 (09:34→21:11)
[2018-12-19] MEDS: Pregabalin 50 MG CAP PO SCH ×2 (09:35→21:11)
[2018-12-19] MEDS: Famotidine/PF 20 mg/2ml Vial SLOW IVP SCH (09:35)
[2018-12-19] MEDS: Oxybutynin ER 5 MG TAB PO SCH (09:36)
[2018-12-19] MEDS ORDERED: Amlodipine 10 MG TAB PO SCH (10:00)
--- NOTE | 2018-12-19 10:41 | PRG ---
DATE OF SERVICE: 12/19/2018 SUBJECTIVE: The patient is having urinary urgency, continues to have back pain, but no new problems. OBJECTIVE: VITAL SIGNS: Blood pressure 166/72, temperature 99, O2 saturation 94% on room air, and pulse 84. ABDOMEN: Soft and nontender. No palpable masses. Liver and spleen, not palpable. No abdominal tenderness noted. Urine output yesterday 325 mL. LABORATORY DATA: Creatinine on 12/19 equals 2.58. Creatinine on 12/15 equals 1.48. IMPRESSION: Mr. Fernández is an 78-year-old gentleman, status post retrograde pyelography and stent placement on 12/17/2018, done in conjunction with transrectal biopsy of a pelvic mass. He presented with a pelvic mass and bilateral ureteral obstruction. His creatinine was elevated, so stents were placed. Unfortunately, they are not functioning well and in fact, his renal function has worsened based on his creatinine measurement. Renal ultrasound has been done this morning, but has not been read. I have contacted the radiologist, Dr. Dick, who will contact me once the ultrasound has been read. If ultrasound confirms unresolved or worsening hydronephrosis, bilateral percutaneous nephrostomy tubes will be necessary. The patient is aware of this as our family members. PLAN: Bilateral percutaneous nephrostomy tubes for relief of bilateral ureteral obstruction, unrelieved by ureteral stents. Pending confirmation of unresolved or worsening hydronephrosis on ultrasound polly stuart Job ID: [id number]
--- NOTE | 2018-12-19 10:56 | ULT ---
Exam: Bilateral renal ultrasound HISTORY: Hydronephrosis COMPARISON: CT of the chest, abdomen and pelvis dated December 15, 2018 FINDINGS: Right kidney: There is moderate right-sided hydronephrosis that does not appreciably changed from the comparison study. No right-sided ureteral jet is identified at the level of the bladder. The right ureteral stent is not definitely seen. Right kidney measurements: 11.2 x 6.3 x 6.5 cm Left kidney: The dilatation of the left renal collecting system is reduced from the comparison CT exa mination. There is partial visualization of the distal left ureteral stent and left ureteral jet at the level of the bladder. Mild amount of residual hydronephrosis remains within the left renal collec ting system. Left kidney measurements: 13.6 x 7.8 x 5.8 cm. Urinary bladder: There is a left ureteral stent and left ureteral jet partially visualized. Bulky mas s at the bladder base is present in the region of the prostate measuring 9.8 x 8.3 cm. IMPRESSION: 1. Moderate right hydronephrosis is not appreciably changed from the comparison CT examination follow ing placement of a right ureteral stent. 2. Left ureteral stent is partially visualized within the lower bladder with associated left ureteral jet. There is mild residual left-sided hydronephrosis. This is improved from the prior CT evaluation. 3. Bulky lower pelvic mass possibly related to prominent lymphadenopathy or prostate enlargement. 4. Findings called to Dr. Aj at 10:30 AM on December 19, 2018.
[2018-12-19 11:57] LABS: INR-International Normal Ratio 1.3; Prothrombin Time 16.3 SEC (12.0-14.7)
[2018-12-19 11:58] LABS: PTT 44.1 SEC (22.9-36.1)
[2018-12-19] MEDS: cefTRIAXone\\ROCEPHIN 2 GM in Sodium Chloride 0.9% 100 ML IVPB SCH (14:29)
[2018-12-19] MEDS ORDERED: Fentanyl 100 MCG/2 ML VIAL ONE (14:40)
[2018-12-19] MEDS ORDERED: Midazolam HCl 2 mg/2 ml Vial ONE (14:40)
[2018-12-19 14:41] LABS: Bilirubin Negative (Negative); Blood, Urine Large (Negative); Glucose, Urine (Dipstick) Negative (Negative); Leukocyte Small (Negative); Nitrite Negative (Negative); Protein, Urine (Dipstick) 100 mg/dL (Neg-Trace); Urobilinogen 0.2 mg/dL (Less than 2)
[2018-12-19 14:42] LABS: Clarity Cloudy (Clear)
[2018-12-19 15:01] LABS: Bacteria/HPF None Seen HPF (None Seen); RBC/HPF Greater than 50 HPF (0-3); Squamous Epithelial 0-3 HPF (0-3); WBC/HPF 21-50 HPF (0-3)
[2018-12-19 16:09] LABS: Creatinine, Urine 24.57 mg/dL (63-166)
--- NOTE | 2018-12-19 17:34 | ULT ---
Ultrasound guidance for nephrostomy tube placement INDICATION: Moderate right and mild left hydronephrosis due to distal obstruction. TECHNIQUE: Ultrasound was utilized for percutaneous nephrostomy tube placement within the right renal collecting system. Please see the fluoroscopic nephrostomy procedure note for full details concerning the procedure. FINDINGS: There is mild left and moderate right hydronephrosis involving the kidneys. IMPRESSION: Ultrasound guidance utilized for percutaneous access of the right renal collecting system .
--- NOTE | 2018-12-19 17:41 | SPC ---
Fluoroscopic and ultrasound guided right percutaneous nephrostomy tube placement Loan Workout Officer: Dr. Yury Vazquez Manager Product: Dr. Omari Licea Fluoroscopic time: 16.6 minutes. Total exposure and 97,840 mg/sq cm. INDICATION: Worsening renal failure with moderate right hydronephrosis. The patient had previously pl aced ureteral stents bilaterally on December 17, 2018. Renal ultrasound performed on December 19, 2018 demonstrated stable moderate right but improved mild left hydronephrosis. A left-sided ureteral jet w as demonstrated on this renal ultrasound examination. Due to progressively worsening renal function, a percutaneous nephrostomy was asked to be placed within the right renal collecting system. TECHNIQUE: Informed consent was obtained. Patient was placed prone on the fluoroscopic table within [facility] room. Sites overlying both kidneys was prepped and draped in the usual sterile fashion. Site overlying the right kidney was marked. Utilizing ultrasound guidance, the posterior low er most calyx of the right kidney was percutaneous access. There was spontaneous return of slightly blood-tinged urine. There was contrast opacification of the renal collecting system with antegrade ad ministration of an Omnipaque 300 contrast solution. Following adequate distention of the renal collecting system, an AccuStick introducer was utilized to gain access to the posterior lower most ri ght renal calyx. A microguidewire was advanced into the renal pelvis. A small cannulated sheath was guided into the renal collecting system. There was confirmation of placement of the sheath within the renal collecting system with aspiration of urine and antegrade administration of contrast. Following this the microwire was replaced with a 0.038 J-wire. The J-wire was manipulated down the re nal collecting system adjacent to the patient's right ureteral stent. Following this an 8 Malay pigtail catheter was guided over the wire and into the renal collecting system. The catheter was then pigtailed in the region of the renal pelvis. The catheter was then fixated to the patient's skin utilizing 0 silk suture. The site was then cleansed and bandage. The catheter was then put to gravity drainage. Patient tolerated the procedure without difficulty. Medication: 1 mg of Versed and 125 mcg of IV fentanyl. IMPRESSION: Successful ultrasound and fluoroscopic guided right percutaneous nephrostomy tube placeme nt.
--- NOTE | 2018-12-19 18:38 | PDOC.HOSPP ---
- Subjective Subjective: 78 y/o male with DM, HTN and BPH admitted due to worsening low back pain. Evaluation with imaging revealed bulky retroperitoneal adenopathy, pelvic mass and bilateral hydronephrosis. No new problem. Concerned about increase in creat today. - Objective Vital Signs & Weight: Vital Signs (12 hours) Temp Pulse Resp BP BP BP BP 12/19/18 17:41 99.7 F H 77 20 161/73 H 12/19/18 08:34 99.0 F 84 16 166/72 H 12/19/18 08:22 180/86 H 166/72 H Pulse Ox 12/19/18 17:41 94 L 12/19/18 08:34 94 L 12/19/18 08:22 Weight Weight 205 lb I&O: 12/18/18 12/19/18 12/20/18 06:59 06:59 06:59 Intake Total 2240 870 Output Total 325 785 80 Balance 1915 85 -80 Result Diagrams: 12/16/18 03:59 12/19/18 05:23 ROS - Review of Systems All systems: All other ROS were reviewed and found negative. - Medication Medications: Active Medications Generic Name Dose Route Start Last Admin Trade Name Freq PRN Reason Stop Dose Admin Acetaminophen 650 mg 12/16/18 02:18 12/16/18 19:45 Tylenol PO 650 mg Q4H PRN Administration Headache/Fever/Mild Pain (1-3) Hydrocodone Bitart/Acetaminophen 1 tab 12/16/18 02:23 12/18/18 22:26 [place] 10/325 PO 1 tab Q4H PRN Administration Moderate Pain (4-6) Coenzyme Q10 100 mg 12/16/18 09:00 12/19/18 09:34 Coenzyme Q10 PO 100 mg DAILY ABRAHAM Administration Famotidine 20 mg 12/16/18 09:00 12/19/18 09:35 Pepcid SLOW IVP 20 mg DAILY ABRAHAM Administration Guaifenesin 200 mg 12/17/18 05:43 12/18/18 23:27 Robitussin Sf PO 200 mg Q8H PRN Administration Cough Ceftriaxone Sodium 2 gm/ 100 mls @ 200 mls/hr 12/18/18 12:00 12/19/18 14:29 Sodium Chloride IVPB 100 mls Q24HR ABRAHAM Administration Mirabegron 50 mg 12/19/18 09:00 12/19/18 09:37 Myrbetriq Er PO 50 mg DAILY ABRAHAM Administration Oxybutynin Chloride 10 mg 12/18/18 09:00 12/19/18 09:36 Ditropan Xl PO 10 mg DAILY ABRAHAM Administration Pregabalin 50 mg 12/16/18 09:00 12/19/18 09:35 Lyrica PO 50 mg QAM ABRAHAM Administration Pregabalin 100 mg 12/16/18 21:00 12/18/18 21:51 Lyrica PO 100 mg QPM ABRAHAM Administration Senna/Docusate Sodium 2 tab 12/16/18 21:00 12/19/18 09:34 Senokot S PO 2 tab BID ABRAHAM Administration Simvastatin 10 mg 12/16/18 21:00 12/18/18 21:51 Zocor PO 10 mg HS ABRAHAM Administration Sodium Biphosphate/Sodium Phosphate 133 ml 12/17/18 08:00 12/18/18 09:19 Fleet Enema CO Not Given 0800 ABRAHAM Sodium Chloride 10 ml 12/16/18 09:00 12/18/18 21:56 Flush - Normal Saline IVF 10 ml Q12HR ABRAHAM Administration - Exam awake alert Eye: PERRL, anicteric sclera ENT: normocephalic atraumatic Neck: supple, symmetric, no JVD Heart: RRR Respiratory: CTAB Gastrointestinal: soft, non-tender, non-distended, normal bowel sounds Extremities: no cyanosis, 2+ LE edema Neurological: CN's grossly intact, no focal deficits Psychiatric: normal affect, A&O x 3 Hosp A/P (1) GABRIELLE (acute kidney injury) Code(s): N17.9 - ACUTE KIDNEY FAILURE, UNSPECIFIED Status: Acute (2) Obstructive uropathy Code(s): N13.9 - OBSTRUCTIVE AND REFLUX UROPATHY, UNSPECIFIED Status: Acute (3) Bilateral hydronephrosis Code(s): N13.30 - UNSPECIFIED HYDRONEPHROSIS Status: Acute (4) BPH (benign prostatic hyperplasia) Code(s): N40.0 - BENIGN PROSTATIC HYPERPLASIA WITHOUT LOWER URINRY TRACT SYMP Status: Acute (5) Bilateral leg edema Code(s): R60.0 - LOCALIZED EDEMA Status: Acute (6) DM type 2 (diabetes mellitus, type 2) Status: Acute Qualifiers: Diabetes mellitus detention insulin use: without detention use Diabetes mellitus complication status: with kidney complications (7) Metastatic bone cancer Code(s): C41.9 - MALIGNANT NEOPLASM OF BONE AND ARTICULAR CARTILAGE, UNSP Status: Acute (8) Pelvic mass Code(s): R19.00 - INTRA-ABD AND PELVIC SWELLING, MASS AND LUMP, UNSP SITE Status: Acute (9) HTN (hypertension) Code(s): I10 - ESSENTIAL (PRIMARY) HYPERTENSION Status: Chronic Qualifiers: Hypertension type: essential hypertension Qualified Code(s): I10 - Essential (primary) hypertension - Plan Get Repeat Renal US given recent stent placement and worsening renal function Also DC HCTZ and losartan. increase amlodipine to 10 mg daily Get bilateral lower extremity dopoplers for DVT Urology following anad Percutanoeous nephrostom=y is contemplated if hydronephrosis persisted. get urine electrolytes Care plan discussed with patient and relatives. We will follow ordered disgnostic tests. Follow renal function.
[2018-12-19] MEDS: Simvastatin 5 MG TAB PO SCH (21:10)
[2018-12-19] MEDS: HYDROcodone/Acetaminophen 10/325 mg Tablet PO PRN (21:11)
[2018-12-20 04:31] LABS: Anion Gap 15 mmol/L (10-20); BUN (Urea Nitrogen) 30 mg/dL (8.4-25.7); Calc. Creatinine Clearance 41 mL/min (70-130); Calcium 8.4 mg/dL (7.8-10.44); Carbon Dioxide 20 mmol/L (23-31); Chloride 102 mmol/L (98-107); Estimated GFR-MDRD 35; Glucose 96 mg/dL (83-110); Potassium 3.3 mmol/L (3.5-5.1); Sodium 134 mmol/L (136-145)
[2018-12-20] MEDS: HYDROcodone/Acetaminophen 10/325 mg Tablet PO PRN ×2 (07:54→21:17)
[2018-12-20] MEDS ORDERED: Potassium Chloride 20 MEQ TAB PO SCH (09:00)
[2018-12-20] MEDS: Amlodipine 10 MG TAB PO SCH (09:09)
[2018-12-20] MEDS: Oxybutynin ER 5 MG TAB PO SCH (09:09)
[2018-12-20] MEDS: Ubidecarenone 50 MG CAP PO SCH (09:09)
[2018-12-20] MEDS: Pregabalin 50 MG CAP PO SCH ×2 (09:10→21:13)
[2018-12-20] MEDS: Senokot S 8.6-50 MG TAB PO SCH ×2 (09:10→21:14)
[2018-12-20] MEDS: Famotidine/PF 20 mg/2ml Vial SLOW IVP SCH (09:11)
[2018-12-20] MEDS: Fleet Enema 133 ML BOT PR SCH (10:21)
--- NOTE | 2018-12-20 11:07 | PDOC.HOSPP ---
- Subjective Subjective: 78 y/o male with DM, HTN and BPH admitted due to worsening low back pain. Evaluation with imaging revealed bulky retroperitoneal adenopathy, pelvic mass and bilateral hydronephrosis. S/p cystoscopy with bilateral stent placement. However found to have persistent of right hydronephrosis hence right percutaneous nephrostomy tube placement. Had minimal out put from the uretrhra and bladder scan showed >300 urine. still having back pain but denied fever, chest pain or SOB. Oral intake is poor. - Objective Vital Signs & Weight: Vital Signs (12 hours) Temp Pulse Resp BP BP Pulse Ox 12/20/18 09:09 78 167/75 H 12/20/18 07:40 98.8 F 78 16 167/75 H 94 L 12/20/18 03:29 98.5 F 79 16 159/74 H 95 12/20/18 00:00 98.5 F 77 16 166/79 H 95 Weight Weight 205 lb I&O: 12/19/18 12/20/18 12/21/18 06:59 06:59 06:59 Intake Total 870 Output Total 785 2880 1750 Balance 85 -2880 -1750 Result Diagrams: 12/16/18 03:59 12/20/18 03:49 ROS - Review of Systems All systems: All other ROS were reviewed and found negative. - Medication Medications: Active Medications Generic Name Dose Route Start Last Admin Trade Name Freq PRN Reason Stop Dose Admin Acetaminophen 650 mg 12/16/18 02:18 12/16/18 19:45 Tylenol PO 650 mg Q4H PRN Administration Headache/Fever/Mild Pain (1-3) Hydrocodone Bitart/Acetaminophen 1 tab 12/16/18 02:23 12/20/18 07:54 [place] 10/325 PO 1 tab Q4H PRN Administration Moderate Pain (4-6) Amlodipine Besylate 10 mg 12/20/18 09:00 12/20/18 09:09 Norvasc PO 10 mg DAILY ABRAHAM Administration Coenzyme Q10 100 mg 12/16/18 09:00 12/20/18 09:09 Coenzyme Q10 PO Not Given DAILY ABRAHAM Famotidine 20 mg 12/16/18 09:00 12/20/18 09:11 Pepcid SLOW IVP 20 mg DAILY ABRAHAM Administration Guaifenesin 200 mg 12/17/18 05:43 12/18/18 23:27 Robitussin Sf PO 200 mg Q8H PRN Administration Cough Ceftriaxone Sodium 2 gm/ 100 mls @ 200 mls/hr 12/18/18 12:00 12/19/18 14:29 Sodium Chloride IVPB 100 mls Q24HR ABRAHAM Administration Mirabegron 50 mg 12/19/18 09:00 12/20/18 09:08 Myrbetriq Er PO 50 mg DAILY ABRAHAM Administration Oxybutynin Chloride 10 mg 12/18/18 09:00 12/20/18 09:09 Ditropan Xl PO 10 mg DAILY ABRAHAM Administration Pregabalin 50 mg 12/16/18 09:00 12/20/18 09:10 Lyrica PO 50 mg QAM ABRAHAM Administration Pregabalin 100 mg 12/16/18 21:00 12/19/18 21:11 Lyrica PO 100 mg QPM ABRAHAM Administration Senna/Docusate Sodium 2 tab 12/16/18 21:00 12/20/18 09:10 Senokot S PO 2 tab BID ABRAHAM Administration Simvastatin 10 mg 12/16/18 21:00 12/19/18 21:10 Zocor PO 10 mg HS ABRAHAM Administration Sodium Biphosphate/Sodium Phosphate 133 ml 12/17/18 08:00 12/20/18 10:21 Fleet Enema ND 133 ml 0800 ABRAHAM Administration Sodium Chloride 10 ml 12/16/18 09:00 12/20/18 09:16 Flush - Normal Saline IVF 10 ml Q12HR ABRAHAM Administration - Exam awake alert Eye: PERRL, anicteric sclera ENT: normocephalic atraumatic Neck: no JVD Heart: RRR Respiratory: CTAB Gastrointestinal: soft, non-tender, non-distended, normal bowel sounds Extremities: 2+ LE edema Neurological: CN's grossly intact, no focal deficits Psychiatric: normal affect, A&O x 3 Hosp A/P (1) GABRIELLE (acute kidney injury) Code(s): N17.9 - ACUTE KIDNEY FAILURE, UNSPECIFIED Status: Acute (2) Obstructive uropathy Code(s): N13.9 - OBSTRUCTIVE AND REFLUX UROPATHY, UNSPECIFIED Status: Acute (3) Bilateral hydronephrosis Code(s): N13.30 - UNSPECIFIED HYDRONEPHROSIS Status: Acute (4) BPH (benign prostatic hyperplasia) Code(s): N40.0 - BENIGN PROSTATIC HYPERPLASIA WITHOUT LOWER URINRY TRACT SYMP Status: Acute (5) Bilateral leg edema Code(s): R60.0 - LOCALIZED EDEMA Status: Acute (6) DM type 2 (diabetes mellitus, type 2) Status: Acute Qualifiers: Diabetes mellitus real estate teacher insulin use: without real estate teacher use Diabetes mellitus complication status: with kidney complications (7) Metastatic bone cancer Code(s): C41.9 - MALIGNANT NEOPLASM OF BONE AND ARTICULAR CARTILAGE, UNSP Status: Acute (8) Pelvic mass Code(s): R19.00 - INTRA-ABD AND PELVIC SWELLING, MASS AND LUMP, UNSP SITE Status: Acute (9) HTN (hypertension) Code(s): I10 - ESSENTIAL (PRIMARY) HYPERTENSION Status: Chronic Qualifiers: Hypertension type: essential hypertension Qualified Code(s): I10 - Essential (primary) hypertension (10) Hypokalemia Code(s): E87.6 - HYPOKALEMIA Status: Acute - Plan Add coreg to amlodipine to get better BP control. Start gentle IV hydration given poor oral intake. We will do straight cath if patient cannot void. Replete serum potassium. Monitor renal function and electrolytes. await bilateral lower extremity doppler
--- NOTE | 2018-12-20 11:08 | ULT ---
BILATERAL LOWER EXTREMITY VENOUS DOPPLER ULTRASOUND: Date: 12/20/18 HISTORY: Bilateral lower extremity edema. TECHNIQUE: Chan scale ultrasound with color flow and spectral Doppler imaging of the deep venous systems of the lower extremities was performed bilaterally. FINDINGS: There is good flow, compression, and augmentation noted in the common femoral, femoral, deep femoral, popliteal, posterior tibial, and greater saphenous veins on either side. IMPRESSION: No evidence of deep venous thrombosis in either lower extremity. POS: JAMES
[2018-12-20] MEDS: cefTRIAXone\\ROCEPHIN 2 GM in Sodium Chloride 0.9% 100 ML IVPB SCH (12:31)
[2018-12-20] MEDS: Lactated Ringer's 1,000 ML IV SCH (12:32)
[2018-12-20] MEDS: Simvastatin 5 MG TAB PO SCH (21:13)
[2018-12-20] MEDS: Carvedilol 6.25 MG TAB PO SCH (21:14)
[2018-12-20] MEDS: Diabetic Tussin 200 MG/10 ML UDCUP PO PRN (21:17)
[2018-12-21] MEDS: Lactated Ringer's 1,000 ML IV SCH ×2 (04:14→09:41)
[2018-12-21] MEDS: HYDROcodone/Acetaminophen 10/325 mg Tablet PO PRN ×2 (04:16→20:43)
[2018-12-21 04:45] LABS: #Eosinphils 0.2 thou/uL (0.0-0.7); #Lymphocytes 0.8 thou/uL (1.20-3.40); #Monocytes 0.8 thou/uL (0.11-0.59); #Neutrophils 4.1 thou/uL (1.40-6.50); %Basophils 0.5 % (0.0-1.0); %Eosinophils 3.3 % (0.0-10.0); %Lymphocytes 12.8 % (21.0-51.0); %Monocytes 13.3 % (0.0-10.0); %Neutrophils 70.1 % (42.0-75.0); Hemoglobin 10.1 g/dL (14.0-18.0); Mean Corpuscular HGB CONC 34.1 g/dL (32.0-36.0); Mean Corpuscular Hemoglobin 29.6 pg (27.0-31.0); Mean Platelet Volume 6.7 fL (7.4-10.4); Platelet Count 296 thou/uL (130-400); White Blood Cell (WBC) Count 5.9 thou/uL (4.8-10.8)
[2018-12-21 05:05] LABS: Anion Gap 11 mmol/L (10-20); BUN (Urea Nitrogen) 19 mg/dL (8.4-25.7); BUN/Creatinine Ratio 20.21; Calc. Creatinine Clearance 82 mL/min (70-130); Calcium 8.4 mg/dL (7.8-10.44); Carbon Dioxide 26 mmol/L (23-31); Chloride 100 mmol/L (98-107); Estimated GFR-MDRD 77; Glucose 107 mg/dL (83-110); Phosphorus 2.6 mg/dL (2.3-4.7); Potassium 3.3 mmol/L (3.5-5.1); Sodium 134 mmol/L (136-145)
[2018-12-21] MEDS: Ubidecarenone 50 MG CAP PO SCH (09:42)
[2018-12-21] MEDS: Amlodipine 10 MG TAB PO SCH (09:43)
[2018-12-21] MEDS: Senokot S 8.6-50 MG TAB PO SCH ×2 (09:43→20:39)
[2018-12-21] MEDS: Carvedilol 6.25 MG TAB PO SCH ×2 (09:43→20:39)
[2018-12-21] MEDS: Pregabalin 50 MG CAP PO SCH ×2 (09:44→20:38)
[2018-12-21] MEDS: Famotidine/PF 20 mg/2ml Vial SLOW IVP SCH (09:45)
[2018-12-21] MEDS: cefTRIAXone\\ROCEPHIN 2 GM in Sodium Chloride 0.9% 100 ML IVPB SCH (12:35)
[2018-12-21] MEDS: Fleet Enema 133 ML BOT PR SCH (16:00)
--- NOTE | 2018-12-21 19:02 | PDOC.HOSPP ---
- Subjective Subjective: Feels fairly well. Tolerated the Sawant placement. Asked for a break before the enema. - Objective Vital Signs & Weight: Vital Signs (12 hours) Temp Pulse Resp BP BP Pulse Ox 12/21/18 10:07 97.9 F 66 16 178/81 H 94 L 12/21/18 09:43 76 167/75 H Weight Weight 205 lb I&O: 12/20/18 12/21/18 12/22/18 06:59 06:59 06:59 Intake Total 2550 Output Total 2884 7184 Balance -6960 -8805 Result Diagrams: 12/21/18 04:36 12/21/18 04:36 ROS - Review of Systems All systems: All other ROS were reviewed and found negative. - Medication Medications: Active Medications Generic Name Dose Route Start Last Admin Trade Name Freq PRN Reason Stop Dose Admin Acetaminophen 650 mg 12/16/18 02:18 12/16/18 19:45 Tylenol PO 650 mg Q4H PRN Administration Headache/Fever/Mild Pain (1-3) Hydrocodone Bitart/Acetaminophen 1 tab 12/16/18 02:23 12/21/18 04:16 [place] 10/325 PO 1 tab Q4H PRN Administration Moderate Pain (4-6) Amlodipine Besylate 10 mg 12/20/18 09:00 12/21/18 09:43 Norvasc PO 10 mg DAILY ABRAHAM Administration Carvedilol 6.25 mg 12/20/18 21:00 12/21/18 09:43 Coreg PO 6.25 mg BID ABRAHAM Administration Coenzyme Q10 100 mg 12/16/18 09:00 12/21/18 09:42 Coenzyme Q10 PO 100 mg DAILY ABRAHAM Administration Famotidine 20 mg 12/16/18 09:00 12/21/18 09:45 Pepcid SLOW IVP 20 mg DAILY ABRAHAM Administration Guaifenesin 200 mg 12/17/18 05:43 12/20/18 21:17 Robitussin Sf PO 200 mg Q8H PRN Administration Cough Ceftriaxone Sodium 2 gm/ 100 mls @ 200 mls/hr 12/18/18 12:00 12/20/18 12:31 Sodium Chloride IVPB 100 mls Q24HR ABRAHAM Administration Lactated Ringer's 1,000 mls @ 50 mls/hr 12/20/18 11:15 12/21/18 09:41 Lactated Ringer's IV 1,000 mls .Q20H ABRAHAM Administration Pregabalin 50 mg 12/16/18 09:00 12/21/18 09:44 Lyrica PO 50 mg QAM ABRAHAM Administration Pregabalin 100 mg 12/16/18 21:00 12/20/18 21:13 Lyrica PO 100 mg QPM ABRAHAM Administration Senna/Docusate Sodium 2 tab 12/16/18 21:00 12/21/18 09:43 Senokot S PO 2 tab BID ABRAHAM Administration Simvastatin 10 mg 12/16/18 21:00 12/20/18 21:13 Zocor PO 10 mg HS ABRAHAM Administration Sodium Biphosphate/Sodium Phosphate 133 ml 12/17/18 08:00 12/20/18 10:21 Fleet Enema [place] 133 ml 0800 ABRAHAM Administration Sodium Chloride 10 ml 12/16/18 09:00 12/20/18 21:00 Flush - Normal Saline IVF Not Given Q12HR ABRAHAM Sodium Chloride 10 ml 12/16/18 00:39 12/20/18 12:32 Flush - Normal Saline IVF 10 ml PRN PRN Administration Saline Flush - Exam NAD Heart: RRR, no murmur, no gallops, no rubs, normal peripheral pulses Respiratory: CTAB, no wheezes, no rales, no ronchi, normal chest expansion, no tachypnea, normal percussion Gastrointestinal: soft, non-tender, non-distended, normal bowel sounds, no palpable masses, no hepatomegaly, no splenomegaly, no bruit Extremities: no cyanosis, no clubbing, no edema Skin: normal turgor, no lesions, no rashes Neurological: CN's grossly intact, normal sensation to touch, no weakness, no focal deficits, no new deficit Hosp A/P (1) GABRIELLE (acute kidney injury) Code(s): N17.9 - ACUTE KIDNEY FAILURE, UNSPECIFIED Status: Acute (2) Bilateral hydronephrosis Code(s): N13.30 - UNSPECIFIED HYDRONEPHROSIS Status: Acute (3) Bilateral leg edema Code(s): R60.0 - LOCALIZED EDEMA Status: Acute (4) DM type 2 (diabetes mellitus, type 2) Status: Acute Qualifiers: Diabetes mellitus termite helper insulin use: without mcfp use Diabetes mellitus complication status: with kidney complications (5) Hydronephrosis Code(s): N13.30 - UNSPECIFIED HYDRONEPHROSIS Status: Acute Qualifiers: Hydronephrosis type: unspecified Qualified Code(s): N13.30 - Unspecified hydronephrosis (6) Metastatic bone cancer Code(s): C41.9 - MALIGNANT NEOPLASM OF BONE AND ARTICULAR CARTILAGE, UNSP Status: Acute (7) Pelvic mass Code(s): R19.00 - INTRA-ABD AND PELVIC SWELLING, MASS AND LUMP, UNSP SITE Status: Acute (8) HTN (hypertension) Code(s): I10 - ESSENTIAL (PRIMARY) HYPERTENSION Status: Chronic Qualifiers: Hypertension type: essential hypertension Qualified Code(s): I10 - Essential (primary) hypertension - Plan Long discussion with the patient and his family. Discussed the plan. Will work on BM today. Consider DC tomorrow. Awaiting path. [facility] Will need Sawant for a week or more and the Perc drain longer. Still on Rocephin. No evidence of infection. May be contaminate culture.
[2018-12-21] MEDS: Simvastatin 5 MG TAB PO SCH (20:39)
[2018-12-21] MEDS: Tamsulosin HCl 0.4 MG CAP PO SCH (20:40)
[2018-12-21 21:44] LABS: CEA, Serum 3.07 ng/mL (< or = 5.0)
[2018-12-21 23:00] LABS: PSA-Symptomatic (DIAGNOSTIC) 38.38 ng/mL (0-4.0)
[2018-12-22] MEDS: HYDROcodone/Acetaminophen 10/325 mg Tablet PO PRN ×2 (07:15→19:35)
[2018-12-22] MEDS: Ubidecarenone 50 MG CAP PO SCH (09:13)
[2018-12-22] MEDS: Senokot S 8.6-50 MG TAB PO SCH ×3 (09:15→19:36)
[2018-12-22] MEDS: Pregabalin 50 MG CAP PO SCH ×2 (09:15→19:36)
[2018-12-22] MEDS: Carvedilol 6.25 MG TAB PO SCH ×2 (09:15→19:36)
[2018-12-22] MEDS: Amlodipine 10 MG TAB PO SCH (09:16)
[2018-12-22] MEDS: Famotidine/PF 20 mg/2ml Vial SLOW IVP SCH (09:21)
[2018-12-22] MEDS: cefTRIAXone\\ROCEPHIN 2 GM in Sodium Chloride 0.9% 100 ML IVPB SCH (13:23)
[2018-12-22] MEDS: Fleet Enema 133 ML BOT PR SCH (15:20)
[2018-12-22] MEDS: Simvastatin 5 MG TAB PO SCH (19:34)
[2018-12-22] MEDS: Tamsulosin HCl 0.4 MG CAP PO SCH (19:35)
[2018-12-22 19:37] VITALS: BP 166/77
[2018-12-22 19:40] VITALS: TEMP 98.4
--- NOTE | 2018-12-23 10:57 | DIS ---
DATE OF ADMISSION: 12/16/2018 DATE OF DISCHARGE: 12/22/2018 DISCHARGE DIAGNOSES: 1. 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 2. Metastatic disease to the bone. 3. Acute kidney injury. 4. Bilateral hydronephrosis. 5. Urinary retention. 6. Hypertension. 7. Bilateral lower extremity edema. 8. Type 2 diabetes mellitus. HISTORY OF PRESENT ILLNESS: This patient is an 78-year-old male, who reported he had been having some intermittent swelling of his lower extremities and ultimately some swelling in his scrotal area and then had onset of significant back pain, weakness, and some urinary incontinence, so his primary care provider referred to Dr. Lin. 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 Also had ureteral obstruction, but no central canal stenosis. Subsequently, he had a CT, which confirmed bilateral hydronephrosis and a soft tissue mass invading the floor of the bladder that was 10 x 9 cm. The patient was subsequently admitted to the hospital, and he was seen promptly in consultation by Dr. Lin, who placed bilateral ureteral stents. The left ureteral stent appeared to be functioning normally; however, the right ureteral stent was not relieving the hydronephrosis, therefore a percutaneous drain was placed and the patient had the Sawant catheter in place as well. He had a bladder mass biopsy performed at that time as well. He had blood pressure medications added to his regimen due to poorly controlled hypertension, these included amlodipine with the cessation of hydrochlorothiazide and losartan in light of his worsening renal function. Lower extremity Dopplers were obtained, and I saw no evidence of lower extremity DVTs to account for the patient's lower extremity edema. Once the patient was comfortable with his Sawant catheter and the percutaneous drain as well as management of those things, his labs indicated an improvement of his renal function with his GFR improving from a low of 24 up to 77 prior to discharge. The patient's CEA returned at 3.07 and PSA was 38.38. With that, the patient was felt to have adequate pain control, adequate improvement of his renal function with drainage of the hydronephrosis and was comfortable with management of the drains that he could be discharged to home to have the remainder of his workup and treatment performed on an outpatient basis. Dr. Figueroa saw the patient in the hospital prior to discharge. She discussed the known results of the pathology and the treatment plan based on the finalization. PHYSICAL EXAMINATION: VITAL SIGNS: On the day of discharge, temperature is 98.4, pulse 65, respirations 18, O2 saturation 95% on room air, BP was 166/77. GENERAL: The patient was awake and alert, sitting up in a chair. HEART: Regular rate and rhythm. LUNGS: Clear bilaterally. ABDOMEN: Benign. EXTREMITIES: Showed trace to 1+ pitting edema. DISPOSITION: The patient is discharged to home in stable condition. ACTIVITY: As tolerated. DIET: He will remain on a heart-healthy diet. MEDICATIONS: Include; 1. Amlodipine 10 mg p.o. daily. 2. Carvedilol 6.25 mg b.i.d. 3. [place] p.r.n. 4. Senokot b.i.d. 5. Tamsulosin 0.4 mg at bedtime. He will continue with; 1. Diovan HCT. 2. CoQ10. 3. Tadalafil. 4. Selenium. 5. Lyrica. 6. Multivitamin. 7. Glucosamine. 8. Flonase. 9. Esomeprazole. 10. Calcium. 11. Aspirin. 12. Lovastatin. FOLLOWUP: He will follow up with Dr. Figueroa. He is to return to the hospital should he have any problems prior to that time. He will also see Dr. Lin and Dr. Ledesma. Time spent in discharge activities, including face to face time with patient, was 41 min. Job ID: [id number] MTDD
--- NOTE | 2018-12-23 13:08 | CON ---
DATE OF CONSULTATION: 12/22/2018 HISTORY OF PRESENT ILLNESS: Mr. Fernández is an 78-year-old male with no significant past medical history, who noticed about 2 months ago that he was developing increasing problems with urination as well as some back pain. The back pain got exquisitely worse 1 week prior to the admission, and he presented to Urgent Care and was diagnosed with sciatica. He then went to his primary care physician. An MRI showed no significant lesions in the bones, but did show bilateral hydronephrosis and lymphadenopathy in the retroperitoneum. He was then admitted because of the hydronephrosis and acute renal failure. Cystoscopy done on December 08, 2018, showed no evidence of mass in the bladder or prostate, but there was some external compression on the bladder and transrectal biopsy was done. Bilateral stents were attempted. He did eventually require a right percutaneous nephrostomy tube as well. His creatinine has resolved. He has had some neurogenic bladder and still has a Sawant catheter in place. His back pain is much better since the treatment of the hydronephrosis. The pathology is back as metastatic carcinoma, possibly a prostate cancer primary. There was some concern for lymphoma, but this was ruled out with a biopsy. He is feeling much better, but is quite tired. He denies shortness of breath or significant back pain. He was quite active and in fact was out of town on a trip to the [facility] when the back pain started. PAST MEDICAL HISTORY: 1. Hypertension. 2. Type 2 diabetes, well controlled. 3. Benign prostatic hypertrophy, he states in the past his PSA has been less than 1. 4. Hypercholesterolemia. 5. Neuropathy of unknown etiology. PAST SURGICAL HISTORY: 1. Appendectomy. 2. Right Achilles tendon repair. 3. Inguinal hernia repair. 4. Cholecystectomy. 5. Right shoulder surgery. 6. Bilateral cataract surgery. CURRENT MEDICATIONS: 1. Tylenol p.r.n. 2. Paullina p.r.n. 3. Norvasc 10 mg p.o. daily. 4. Dulcolax 10 mg p.o. daily p.r.n. 5. Coreg 6.25 mg p.o. b.i.d. 6. Ceftriaxone given after the bladder biopsy. 7. Coenzyme Q10. 8. Drisdol 1.25 mg p.o. q.30 days. 9. Pepcid 20 mg IV daily. 10. Glucagon as needed. 11. Guaifenesin as needed. 12. Morphine 2 mg IV q.6 hours p.r.n. 13. Lyrica 50 mg p.o. q.a.m. and 100 mg p.o. q.p.m. 14. Senokot two tablets p.o. b.i.d. 15. Zocor 10 mg p.o. at bedtime. 16. Fleet enema as needed, although he did have a bowel movement on the day of the consult. 17. Flomax 0.4 mg p.o. at bedtime. ALLERGIES: PENICILLIN AND SULFA. SOCIAL HISTORY: He lives in [place] with his , who is quite supportive. They have 7 children between them and one of them is a nurse in the [employer]. There is a quite supportive family with him. He denies anything other than occasional alcohol use. Denies significant tobacco use. REVIEW OF SYSTEMS: Otherwise, a 10-point review of systems is negative with the exception of constipation and some pain in the bottoms of his feet, which is chronic from neuropathy. PHYSICAL EXAMINATION: VITAL SIGNS: Temperature 98.4, pulse 65, O2 saturation 95% on room air, respirations 18, and blood pressure 166/77. GENERAL: He is alert, awake, oriented x3, is in no acute distress, quite pleasant, give a great history. HEENT: Extraocular muscles are intact. Pupils are equal, round and reactive to light. He has no oral cavity lesions. NECK: Supple without lymphadenopathy. CARDIOVASCULAR: Regular rhythm. LUNGS: Clear to auscultation bilaterally. ABDOMEN: Hypoactive bowel sounds. Soft and nontender, but with some tenderness in the right lower quadrant near the bladder. EXTREMITIES: No edema. No clubbing. LABORATORY DATA: White blood cell count 5.9, hemoglobin 10.1, platelets 296. PSA 38, CA-19-9 of 58, CEA is 3. Creatinine was 2.58 on admission, is down to 0.9 just prior to discharge. AST 13, ALT 17, alkaline phosphatase 219, albumin 3.5. BNP 477. IMAGING STUDIES: CT scan of the chest, abdomen, and pelvis done on December 15, 2018, shows the lung arnold have chronic parenchymal changes, but no effusion or infiltrate. No pulmonary masses. The liver, spleen, and pancreas are unremarkable. Both kidneys showed mild bilateral hydronephrosis with evidence of bilateral ureteral obstruction in the pelvis due to adenopathy. The urinary bladder shows abnormal soft tissue mass invading the floor of the bladder involving both UVJ regions. The impression is that there is a large lobulated soft tissue mass in the pelvis involving the floor of the bladder. There is bulky confluent adenopathy throughout the retroperitoneum consistent with possibly a primary bladder malignancy with associated adenopathy, lymphoma with also a consideration. Radiology; biopsy of the pelvic mass showed metastatic poorly differentiated neoplasm with pending immunohistochemical stains. The prostate markers show some weak focal reactivity and metastatic prostate carcinoma is in the differential, but further stains are pending. ASSESSMENT: Mr. Fernández is an 78-year-old male with: 1. Bulky lymphadenopathy in the pelvis causing bilateral ureteral obstruction. 2. Acute renal failure secondary to above, now resolving with right percutaneous nephrostomy tube in place as well as ureteral stent in place. 3. Elevated PSA. 4. Neuropathy. PLAN: 1. I discussed with them the diagnosis as we know it. I would recommend discharge today with a PET scan or bone scan as an outpatient as well as an MRI of the brain. It is possible we will need to have the pathology reviewed at [facility] and we did discuss this as well. 2. I would recommend follow up with Urology within the next week. Hopefully, we can get the catheter out. 3. If this does garment turner to be prostate cancer, I would recommend starting Lupron and probably Taxotere. We did discuss the second opinion at [facility] and I can discuss this more with him as an outpatient. 4. Paullina as needed, I will write this prescription. 5. He will follow up with me as an outpatient. Job ID: [id number]
--- NOTE | 2018-12-23 18:16 | PRG ---
DATE OF SERVICE: 12/22/2018 SUBJECTIVE: The patient states he is feeling okay. He is not having any bladder spasms. He is not having any significant flank pain. His creatinine has almost gone back down to normal after his nephrostomy tube placement. Pathology is still pending, although it does appear to be some poorly differentiated carcinoma. OBJECTIVE: VITAL SIGNS: Temperature 98.4, pulse 65, respirations 18, blood pressure 166/77, saturation 95% on room air. GENERAL: No apparent distress, communicative and alert. CARDIOVASCULAR: Regular rate and rhythm. ABDOMEN: Soft, nontender, and nondistended. Positive bowel sounds. : Sawant catheter in place with clear urine. Kinga colored urine in the bag. Right-sided nephrostomy tube in place on the back. EXTREMITIES: 2+ edema bilaterally. There is also scrotal edema present. LABORATORY EVALUATION: The full set of labs are in the [employer] system, which I have reviewed. No new labs from a CBC. Creatinine was 0.94 when last checked on the . Pathology demonstrates poorly differentiated carcinoma, waiting final stains. ASSESSMENT AND PLAN: An 78-year-old white male with metastatic carcinoma of unknown origin, currently with hydronephrosis on the right, treated with a percutaneous nephrostomy tube. Left-sided hydronephrosis is drained by a stent. He does not need the right-sided ureteral stent, so we will plan to remove this in the office in a few weeks. We will await the final pathology and then make further decisions regarding his cancer. We will perform a void trial for his bladder at the time of his stent removal and he should remain on Flomax until then. Job ID: [id number]
--- NOTE | 2018-12-24 01:27 | PQF ---
[employer] DAVID Osuna ROBIN MD [id number] CLINICAL DOCUMENTATION CLARIFICATION FORM: POST DISCHARGE Addendum to original discharge summary date: ____ Late entry note date: __ DATE: 12/24/2018 ATTN: JORY LAURENT MD Please exercise your independent, professional judgment in responding to the clarification form. 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 Thank You. CLINICAL INDICATORS - SIGNS/ SYMPTOMS / LABS -Pelvic mass, s/p biopsy -Progress note, pg1, 12/18, Danie Olivarez MD -Metastatic high grade carcinoma, immunohistochemically consistent with prostatic adenocarcinoma-Pathology report, 12/22 -Metastatic carcinoma of unknown origin-Progress note, pg1, 12/22, JORY LAURENT MD -Pelvic mass with bilateral hydronephrosis-OP report, pg1, 12/17, JORY LAURENT MD -The bladder mass is producing bilateral ureteral obstruction with bilateral hydronephrosis-Consult, 12/16, JORY LAURENT MD RISK FACTORS -Large bladder mass with bone and lymphnode mass-Consult, 12/16, Alicia Meyer APRN -GABRIELLE, mild hdyronephrosis bilaterally-Progress note, pg1, Danie Olivarez MD TREATMENTS -Treated wtih a Percutaneous nephrostomy tube-Progress note, pg1, 12/22, JORY LAURENT MD -Left sided hydronephrosis is drained by a stent-Progress note, pg1, 12/22, JORY LAURENT MD [employer] 2015 [employer]. All Rights Reserved Dottie Hanley [not provided] [not provided] (This form is maintained as a part of the permanent medical record) [facility]
--- NOTE | 2018-12-28 16:50 | EKG ---
Test Reason : ER INDICATION Blood Pressure : / mmHG Vent. Rate : 073 BPM Atrial Rate : 073 BPM P-R Int : 208 ms QRS Dur : 084 ms QT Int : 368 ms P-R-T Axes : 053 006 023 degrees QTc Int : 405 ms Normal sinus rhythm Normal ECG Confirmed by ELIANE GARCIA ([id number]), research editor HAZEL DEL TORO ([id number]) on 12/28/2018 4:49:52 PM Referred By: Confirmed By:ELIANE GARCIA
[2018-12-30] MEDS ORDERED: Ergocalciferol 1.25 MG(50,000 UNITS) CAP PO SCH (09:00)
== END 2018-12-22 20:07 | disposition home or self-care (01) | DRG 657 ==
LOC: ERS 17:17 → ONC 23:00 → OBSVTOIN 12-16 14:55
PROVIDERS: ADMIT Hospitalist; ATTEND Hospitalist
PROC: 0T788DZ Dilation of Bilateral Ureters with Intraluminal Device, Via Natural or Artificial Opening Endoscopic (ICD-10-PCS; principal; 2018-12-17)
PROC: BT1D1ZZ Fluoroscopy of Right Kidney, Ureter and Bladder using Low Osmolar Contrast (ICD-10-PCS; 2018-12-17)
PROC: BT1D1ZZ Fluoroscopy of Right Kidney, Ureter and Bladder using Low Osmolar Contrast (ICD-10-PCS; 2018-12-17)
PROC: 0DBP8ZX Excision of Rectum, Via Natural or Artificial Opening Endoscopic, Diagnostic (ICD-10-PCS; 2018-12-17)
PROC: 0T933ZZ Drainage of Right Kidney Pelvis, Percutaneous Approach (ICD-10-PCS; 2018-12-19)
DX: C67.9 Malignant neoplasm of bladder, unspecified (principal); C79.51 Secondary malignant neoplasm of bone; N17.9 Acute kidney failure, unspecified; N13.30 Unspecified hydronephrosis; N32.9 Bladder disorder, unspecified; R32 Unspecified urinary incontinence; I10 Essential (primary) hypertension; N40.0 Benign prostatic hyperplasia without lower urinary tract symptoms; R59.9 Enlarged lymph nodes, unspecified; K21.9 Gastro-esophageal reflux disease without esophagitis; J44.9 Chronic obstructive pulmonary disease, unspecified; K44.9 Diaphragmatic hernia without obstruction or gangrene; E87.6 Hypokalemia; E11.9 Type 2 diabetes mellitus without complications; Z88.0 Allergy status to penicillin; Z88.8 Allergy status to other drugs, medicaments and biological substances; Z88.2 Allergy status to sulfonamides; Z90.49 Acquired absence of other specified parts of digestive tract; Z98.42 Cataract extraction status, left eye; Z98.41 Cataract extraction status, right eye; Z87.891 Personal history of nicotine dependence
CPT/HCPCS: 36415; 36416; 50431; 50432; 71260; 72100; 72148; 74177; 74420; 76770; 80048; 80053; 80069; 81003; 81015; 82378; 82570; 83605; 83880; 84153; 84156; 84300; 84484; 84540; 85025; 85610; 85730; 86301; 86850; 86900; 86901; 87040; 87077; 87086; 87149; 87186; 88184; 88305; 88341; 88342; 88361; 93005; 93970; 94760; 96361; 96365; 96367; 96372; 96375; 99212; C1758; C1769; G0463; J0690; J0692; J0696; J1885; J1940; J1956; J2001; J2250; J2405; J2704; J2765; J2800; J3010; J3370; J3490; Q9966; S0028

== ENCOUNTER 2018-12-29 10:17 | Outpatient (CLI) | payer MEDICARE, OTHER ==
--- NOTE | 2018-12-29 14:36 | MRI ---
MRI BRAIN WITH AND WITHOUT CONTRAST: Date: 12/29/18 INDICATION: Prostate cancer, bone metastasis. Assess for brain metastasis. No comparison. FINDINGS: Ventricles have normal size and position. Mild chronic ischemic white matter changes. No evidence of restricted diffusion. No evidence of mass or edema on FLAIR sequence. No evidence of abnormal enhancement. The intracranial internal carotid arteries and cerebral arteries show expected flow-voids. Paranasal sinuses appear clear. Mild mucosal edema in the left mastoid air cells. IMPRESSION: Mild chronic ischemic white matter change consistent with age. No evidence of metastatic lesion ident ified. POS: [facility]
--- NOTE | 2018-12-29 17:54 | NM ---
WHOLE BODY BONE SCAN: HISTORY: Prostate cancer. RADIOPHARMACEUTICAL: Technetium 99m MDP 33 millicuries injected intravenously. FINDINGS: There are foci of increased uptake in the thoracolumbar spine, both scapulae, the pelvis, the right p roximal femur, the right upper ribs (likely 1 and 2), and in the right 12th rib, consistent with meta static disease. Foci of increased uptake in the right and left mandible, which may be due to periodontal disease or m etastatic disease. Trace excretion through the kidneys is within normal limits. IMPRESSION: Osseous metastatic disease. POS: [facility]
== END 2018-12-29 10:18 | disposition home or self-care (01) ==
LOC: NM 10:17
PROVIDERS: ATTEND Internal Medicine Hematology & Oncology
DX: C61 Malignant neoplasm of prostate (principal); C79.51 Secondary malignant neoplasm of bone
CPT/HCPCS: 70553; 78306; A9503

== ENCOUNTER 2019-01-14 19:33 | Inpatient (IN) | payer MEDICARE, OTHER ==
[2019-01-14 20:50] LABS: ALT (SGPT) 23 U/L (8-55); AST (SGOT) 25 U/L (5-34); Albumin 3.6 g/dL (3.4-4.8); Alkaline Phosphatase 313 U/L (40-150); Anion Gap 14 mmol/L (10-20); BUN (Urea Nitrogen) 20 mg/dL (8.4-25.7); Calc. Creatinine Clearance 0 mL/min (70-130); Calcium 8.5 mg/dL (7.8-10.44); Carbon Dioxide 21 mmol/L (23-31); Chloride 95 mmol/L (98-107); Estimated GFR-MDRD 60; Globulin 2.9 g/dL (2.4-3.5); Glucose 133 mg/dL (83-110); Potassium 4.2 mmol/L (3.5-5.1); Protein, Total 6.5 g/dL (5.8-8.1); Sodium 126 mmol/L (136-145)
[2019-01-14 20:55] LABS: Band 4 % (5-11); Hemoglobin 11.1 g/dL (14.0-18.0); Lymphocytes 15 % (21-51); MDiff Complete? YES; Mean Corpuscular HGB CONC 34.2 g/dL (32.0-36.0); Mean Corpuscular Hemoglobin 29.1 pg (27.0-31.0); Mean Platelet Volume 7.6 fL (7.4-10.4); Monocytes 5 % (0-10); Neutrophil 76 % (42-75); Platelet Count 230 thou/uL (130-400); Platelet Morphology Comment Appears Adequate; RBC Distribution Width 12.8 % (11.5-14.5); White Blood Cell (WBC) Count 34.1 thou/uL (4.8-10.8)
[2019-01-14 20:55] LABS: Bacteria/HPF 4+ HPF (None Seen); Bilirubin Negative (Negative); Blood, Urine Trace (Negative); Clarity Turbid (Clear); Glucose, Urine (Dipstick) Normal (Negative); Leukocyte 500 Leu/uL (Negative); Mucous/LPF Rare LPF (<2+); Nitrite Negative (Negative); Protein, Urine (Dipstick) 50 mg/dL (Neg-Trace); Squamous Epithelial None Seen HPF (0-3); Urobilinogen Normal mg/dL (Less than 2); WBC/HPF Greater than 50 HPF (0-3)
--- NOTE | 2019-01-14 21:03 | RAD ---
FRONTAL RADIOGRAPH CHEST: 01/14/19 COMPARISON: 07/01/18 HISTORY: Fever. FINDINGS: There is stable prominence of the cardiac silhouette. Descending thoracic aorta is tortuous/prominent . There is atherosclerotic calcification of the aortic arch. There is no pneumothorax, lobar consolid ation, or alveolar edema. A hiatal hernia is again noted. IMPRESSION: No acute findings-stable appearance of the chest. POS: [facility]
--- NOTE | 2019-01-14 21:05 | CT ---
CT Brain WO Con: 01/14/2019 12:00 AM CLINICAL HISTORY: Fever and confusion. IMAGING TECHNIQUE: Multiple CT images were obtained of the brain without IV contrast. COMPARISON: MR the brain with and without contrast dated December 29, 2018 FINDINGS: Infarct: No acute infarct is evident. There is mild chronic small vessel white matter ischemic earl e Hemorrhage: None.. Hydrocephalus: None.. Basal cisterns: Normal.. Cerebral parenchyma: Normal.. Midline shift: None.. Cerebellum: Normal. Brainstem: Normal. OTHER: Calvarium: Intact.. Visualized Paranasal sinuses: Clear.. Extracranial soft tissues:Normal. IMPRESSION: No acute intracranial abnormality.
[2019-01-14] MEDS ORDERED: Cefepime 2 GM VIAL ONE (22:22)
[2019-01-15] MEDS ORDERED: Sodium Chloride 0.9% 1,000 ML IV SCH (01:41)
[2019-01-15] MEDS ORDERED: Ondansetron ODT 4 MG TAB SL PRN (01:41)
[2019-01-15] MEDS ORDERED: HYDROcodone/Acetaminophen 5/325 mg Tablet PO PRN ×2 (01:41)
[2019-01-15] MEDS ORDERED: Ondansetron PF 4 MG/2 ML Vial IVP PRN (01:41)
[2019-01-15] MEDS ORDERED: Acetaminophen 325 MG TAB PO PRN (01:41)
[2019-01-15 03:33] VITALS: BMI 25.0
[2019-01-15] MEDS ORDERED: HYDROcodone/Acetaminophen 10/325 mg Tablet PO PRN (10:03)
[2019-01-15] MEDS ORDERED: Ergocalciferol 1.25 MG(50,000 UNITS) CAP PO SCH (10:15)
[2019-01-15] MEDS ORDERED: Cefepime 2 GM in Sodium Chloride 0.9% 100 ML IVPB SCH (11:00)
[2019-01-15] MEDS: Vancomycin HCl 1 GM in Premix Bag 1 BAG IVPB SCH ×2 (12:59→23:38)
--- NOTE | 2019-01-15 15:21 | HP ---
SUBJECTIVE: The patient is seen and examined at the bedside. CHIEF COMPLAINT: Fever and generalized weakness. HISTORY OF PRESENT ILLNESS: The patient is an 78-year-old male, who was recently diagnosed with an aggressive form of prostate cancer and he received chemotherapy approximately [address] Figueroa. Yesterday, he started having fever, temperature went up to 101.4. He had some sweating and he was shaky. His mental condition was slightly off. He was told to call Dr. Figueroa when it happens and she instructed him to go to the emergency room for further evaluation and possible admission. He had nephrostomy tube placed by Dr. Lin approximately a month ago, then he had right ureteral stent removed soon after that. He is switched to self-catheterization at this point 4 times a day. He denied any cough or shortness of breath. He denied any abdominal pain. His Sawant catheter was removed approximately 2 weeks ago. He denied any nausea or vomiting. PAST MEDICAL HISTORY: Positive for, 1. Hypertension. 2. Aggressive form of prostate cancer diagnosed just recently. 3. Hyperlipidemia. PAST SURGICAL HISTORY: 1. Appendectomy. 2. Inguinal and hiatal hernia. 3. Cholecystectomy. 4. Right shoulder surgery. 5. Bilateral cataract surgery. 6. Basal cell carcinoma removed. 7. Cardiac catheterization. SOCIAL HISTORY: He used to smoke, but quit more than 55 years ago. Denies any alcohol intake. He denies any illicit drug use. FAMILY HISTORY: His father at the age of 73 of cerebrovascular accident and mother had diabetes and CVA, and she passed when she was 66. MEDICATIONS: 1. Levofloxacin 500 mg tablet, this was called in yesterday and the patient got one dose last night. 2. Drisdol that is vitamin D 1.25 mg once a day. 3. Amlodipine 5 mg once a day. 4. Flonase 50 mcg two sprays intranasally once a day. 5. Lovastatin 20 mg at bedtime. 6. Omeprazole 40 mg once a day. 7. Lyrica 50 mg twice a day. 8. Valsartan and hydrochlorothiazide together in the form of Diovan 320 mg/25 mg one tablet once a day. 9. Flomax 1 tablet once a day. 10. Casodex 50 mg one tablet, chemo treatments. 11. Hydrocodone and acetaminophen 10 mg/325 mg one tablet every six hours p.r.n. as needed. 12. Lupron 1 mg subcutaneous injection once every four weeks. ALLERGIES: PENICILLIN AND SULFA. REVIEW OF SYSTEMS: All 14 systems were reviewed and they are negative, except for findings and symptoms mentioned at HPI. PHYSICAL EXAMINATION: VITAL SIGNS: Blood pressure is 139/70, pulse is 88, temperature is 98.1, respirations are 16, O2 saturation is 94% on room air. HEENT: His head is atraumatic and normocephalic. Eyes are PERRLA. Sclerae are nonicteric. Oral mucosa is slightly dry. NECK: Supple. No lymphadenopathy. Thyroid is not palpable. LUNGS: Clear. HEART: S1 and S2 normal. No S3. No S4. ABDOMEN: Soft, nontender, nondistended. Bowel sounds are present. No organomegaly. EXTREMITIES: No clubbing or cyanosis. There is 1+ peripheral edema around his left ankle. Pulses slightly diminished on both tibialis posterior and dorsalis pedis arteries similar bilaterally. NEUROLOGICAL: He is alert and oriented x4. There is no any motor or sensory deficits present. Cranial nerves are intact. LABORATORY DATA: Labs showed white count of 34.1, hemoglobin of 11.1, hematocrit 32.3, neutrophils 76, bands 4. Sodium 126, potassium 4.2, chloride 95, CO2 of 21, BUN 20, creatinine 1.17, glucose 133, alkaline phosphatase 313. Urine showed clarity turbid, protein 50, trace of blood, leukocyte esterase 500, RBCs 4 to 6 on the scope along with WBCs, which is greater than 50 and 4+ bacteria, and the rest of labs are within normal limits. IMAGING STUDIES: Chest x-ray personally reviewed by me did not show any acute abnormalities. CT of the brain personally reviewed by me did not show any acute abnormalities. IMPRESSION: 1. Sepsis. The patient was tachycardic at the time of emergency room visit with elevated white count up to 34,000 and fever. The cultures were drawn in the emergency room on his blood and urine influenza type A and B, direct EIA were done and both of them came back negative. 2. 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 We will limit his oral fluid intake to a 1000 mL per 24 hours. 3. 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 4. Hypertension. PLAN: Plan is full admission and condition is fair. Activity, bedrest and bathroom privileges. IV normal saline at 80 mL/h. Vancomycin and cefepime IV piggyback. Pharmacy to dose vancomycin. Blood cultures and urine cultures were done. We will get Dr. Figueroa, his primary oncologist involved, and Dr. Lin, his primary urologist. We will continue his home medications. We will do DVT prophylaxis with SCDs and Lovenox. Urine is probably the source. He is self-catheterizing 4 times a day, but his urine culture preliminary report is negative so far. We will do follow up on CBC and chemistry tomorrow. Job ID: [id number]
--- NOTE | 2019-01-15 16:37 | CON ---
DATE OF CONSULTATION: 01/15/2019 CONSULTING: [facility]. CONSULTED: Dr. Lin. REASON FOR CONSULTATION: Possible urosepsis with UTI. HISTORY OF PRESENT ILLNESS: Mr. Fernández is an 78-year-old white male, who presented to the ER today with history of a fever up to 101.4 with generalized weakness. He has a known history of metastatic prostate cancer, which is currently presenting with a large pelvic mass pressing on the bladder as well as having retroperitoneal abdominal lymphadenopathy. The patient has a nephrostomy tube on the right and a ureteral stent on the left, which had been placed by me previously secondary to obstruction from this large cancer. He is already started on Taxotere with Dr. Figueroa and received Neulasta patch at the same time. He had had urinary retention after his last discharge and was currently on CIC, but had resumed most of his normal voiding with occasional need to catheterize about once a day. The did show me a log of catheterization residuals, which shows that he is pretty much emptying most of his bladder out almost every time, although he still continues to have residuals anywhere between 100 mL to 200 mL at a time. The patient does have a known obstructive prostate gland with a known history of prostate cancer. He denies any significant malaise, right flank pain, or left flank pain. Denies any significant hematuria or bladder pain other than the chronic indwelling stent discomfort. He does not necessarily feel ill at the current time. ALLERGIES: 1. PENICILLIN. 2. SULFA. HOME MEDICATIONS: 1. Tylenol. 2. [place]. 3. Norvasc. 4. Dulcolax p.r.n. 5. Coreg. 6. Coenzyme Q10. 7. Drisdol. 8. Pepcid. 9. Guaifenesin. 10. Lyrica. 11. Senokot. 12. Zocor. 13. Taxotere. 14. Neulasta. 15. Flomax. PAST MEDICAL HISTORY: 1. Hypertension. 2. Type 2 diabetes. 3. BPH. 4. High cholesterol. 5. Neuropathy. 6. Metastatic prostate cancer. PAST SURGICAL HISTORY: 1. Appendectomy. 2. Right Achilles tendon repair. 3. Inguinal hernia repair. 4. Cholecystectomy. 5. Right shoulder surgery. 6. Bilateral cataract surgery. 7. Nephrostomy tube placement with bilateral stents, although the right stent has been removed. SOCIAL HISTORY: The patient lives with his in [place]. He admits to social alcohol use only. Denies smoking or illicit drug use. FAMILY HISTORY: Noncontributory. REVIEW OF SYSTEMS: A 12-point review of system was reviewed and otherwise negative other than what was commented on the HPI. PHYSICAL EXAMINATION: VITAL SIGNS: Temperature 98, pulse 93, respirations 18, blood pressure 130/72, and saturation 95% on room air. GENERAL: No apparent distress, communicative and alert, well-nourished, well-developed, appears stated age. HEENT: Normocephalic and atraumatic. Pupils symmetric and round. Trachea midline. Moist mucous membranes. CARDIOVASCULAR: Regular rate and rhythm. Normal S1 and S2. Symmetric pulses. CHEST: No increased work of breathing. Symmetric expansion. LUNGS: Clear anteriorly. ABDOMEN: Soft, nontender, and nondistended. Positive bowel sounds. No organomegaly or masses. No hernias. BACK: Right nephrostomy tube in place with clear yellow urine draining. : No obvious deformities or swelling. Testes are bilaterally descended. Penis nonfocal. EXTREMITIES: No clubbing, cyanosis, or edema. MUSCULOSKELETAL: No joint deformities or joint erythema noted. Full range of motion. SKIN: Warm and dry. Good turgor. No rashes or lesions. LYMPH: No obvious lymphadenopathy in the supraclavicular, axillary, or inguinal areas. NEUROLOGIC: Cranial nerves 2 through 12 grossly intact. No focal or sensory motor deficits identified. PSYCHIATRIC: Alert and oriented x3. Appropriate mood and affect. LABORATORY EVALUATION: The full set of labs are in the [employer] system, which I have reviewed. Of note, the patient's white count is 34.1 with a hemoglobin of 11.1, creatinine is 1.17, sodium of 126, alkaline phosphatase of 313. Urine shows turbid urine with 500 leuk esterase, 4 to 6 rbc's, greater than 50 wbc's, and 4+ bacteria. ASSESSMENT AND PLAN: An 78-year-old white male with BPH and retention with metastatic prostate cancer, currently on CIC with a nephrostomy tube with elevated white count. He is really not having any significant symptoms suggestive of urinary tract infection. Urine culture does show gram-negative rods, which is expected for a patient on CIC and an indwelling nephrostomy tube. It would be reasonable to presumptively treat the patient as if he is having a urinary tract infection which may have been the source of his elevated white count. Otherwise, I would suspect that the Neulasta is likely the more likely culprit. In any case, an empiric trial of antibiotics is reasonable. If the patient does not seem sick and does not have any other cultures that grow anything, he could potentially be taken off his antibiotics, although treatment for 7 days at least would be reasonable given the patient did have a fever and is currently receiving more chemotherapy. I would taper the antibiotics accordingly based on to the urine culture and use 7 days of an oral antibiotic regimen for that. I think CIC can probably be discontinued. At this point, we will increase his Flomax to b.i.d. The patient is having some issues with constipation, which may exacerbate his urinary symptoms, so we will start some laxatives as well. I will continue to follow the patient outpatient. At some point when he gets restaging CTs if his pelvic mass has shrunk enough, we can probably remove the nephrostomy tube after antegrade nephrostogram and subsequently the left stent as well. For now, we will keep an eye on the patient and ensure that he is voiding adequately. Job ID: [id number]
[2019-01-15] MEDS: Senokot S 8.6-50 MG TAB PO SCH (19:56)
[2019-01-15] MEDS: Tamsulosin HCl 0.4 MG CAP PO SCH (19:57)
[2019-01-15] MEDS ORDERED: Bicalutamide 50 MG TAB PO SCH (20:45)
[2019-01-15] MEDS ORDERED: Pregabalin 50 MG CAP PO SCH (21:00)
[2019-01-15] MEDS ORDERED: Tamsulosin HCl 0.4 MG CAP PO SCH (21:00)
[2019-01-15] MEDS ORDERED: Simvastatin 5 MG TAB PO SCH (21:00)
[2019-01-15] MEDS ORDERED: Amlodipine 5 MG TAB PO SCH (21:00)
--- NOTE | 2019-01-15 21:16 | CON ---
DATE OF CONSULTATION: REASON FOR CONSULT: Prostate cancer. HISTORY OF PRESENT ILLNESS: Mr. 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 He also has a large pelvic mass with retroperitoneal lymphadenopathy causing bilateral hydronephrosis. He did have a ureteral stent placed and a right percutaneous nephrostomy tube. He received cycle 1 of Taxotere on January 07. He called our clinic yesterday with a complaint of a temperature of greater than 101. His states that he was having some altered mental status. He was given a dose of Levaquin and instructed to go to the ER for worsening symptoms. He did present last night to the emergency room. He had a brain CT and a chest x-ray which were normal. His white count was 34.1, likely secondary to Neulasta. He had 4+ bacteria in his urine and was admitted for urinary tract infection. The patient was performing self catheterization at home secondary to urinary retention from the pelvic mass. He was started on cefepime and vancomycin and has improved dramatically overnight. PAST MEDICAL HISTORY: 1. Stage IV prostate cancer. 2. High blood pressure. 3. High cholesterol. 4. Acid reflex. 5. Hemorrhoids. PAST SURGICAL HISTORY: 1. Appendectomy. 2. Cataract surgery. 3. Laparoscopic Genevieve fundoplication. 4. Cholecystectomy. 5. Basal cell carcinoma excision. 6. Right excision. 7. Cystoscopy with biopsy. ALLERGIES: NO KNOWN DRUG ALLERGIES. HOME MEDICATIONS: 1. Flomax 0.4 mg daily. 2. Prilosec daily. 3. Lyrica t.i.d. 4. Lovastatin daily. 5. Hydrocodone 10/325 p.r.n. 6. Diovan daily. 7. Casodex daily. 8. Amlodipine daily. FAMILY HISTORY: Had a half brother with lung cancer. He has a daughter with two different types of breast cancer. SOCIAL HISTORY: He is , lives with his spouse. No alcohol, tobacco, or illicit drug use. REVIEW OF SYSTEMS: A 10-point review of systems is negative except for noted in HPI. PHYSICAL EXAMINATION: VITAL SIGNS: Temperature is 98.1, pulse is 89, respiratory rate 16, BP is 135/65. He is 94% on room air. GENERAL: This is a well-developed, well-nourished male, in no acute distress. HEENT: Normocephalic, atraumatic. Pupils are equal and reactive to light. NECK: Supple. CV: Regular rate and rhythm. LUNGS: Clear. ABDOMEN: Soft and nontender. Bowel sounds are positive. EXTREMITIES: No clubbing, cyanosis, or edema. SKIN: No rash. HEMATOLOGIC: No petechiae or purpura. NEUROLOGICAL: Nonfocal. PERTINENT LABS AND X-RAYS: Current WBCs are 34.1, hemoglobin 11.1, hematocrit 32.3, platelet count is 230,000, 76% neutrophils, 4% bands, 15% lymphocytes. Sodium 126, potassium 4.2, chloride 95, CO2 is 21, BUN is 20, creatinine is 1.17, lactic acid 0.8, calcium 8.5, bilirubin 1.0, AST is 25, ALT is 23, alkaline phosphatase is 313. Troponin negative. Serum total protein 6.5, albumin 3.6, globulin 2.9. Urine showed 4+ bacteria. Micros positive for gram negative alonzo. Blood cultures are negative, preliminary. ASSESSMENT: 1. Stage IV prostate cancer, status post cycle 1 of chemotherapy. 2. Leukocytosis, likely secondary to Neulasta. 3. Urinary tract infection. DISCUSSION: The patient has been placed on vancomycin and cefepime. Sensitivities from cultures are currently pending. He has been afebrile since arrival and is feeling much better. We would recommend discharge home, continue oral antibiotics once sensitivities have resulted. Thank you for the consult. We will follow up with him in the outpatient setting. Job ID: [id number]
[2019-01-16 04:36] LABS: Band 11 % (5-11); Elliptocytes SLIGHT = 2-5 cells (100X) (0-1/hpf); Hemoglobin 9.4 g/dL (14.0-18.0); Lymphocytes 5 % (21-51); MDiff Complete? YES; Mean Corpuscular HGB CONC 33.8 g/dL (32.0-36.0); Mean Corpuscular Hemoglobin 29.1 pg (27.0-31.0); Mean Platelet Volume 7.4 fL (7.4-10.4); Metamyelocyte 1 % (0-0); Monocytes 1 % (0-10); Myelocyte 2 % (0-0); Neutrophil 80 % (42-75); Platelet Count 177 thou/uL (130-400); Platelet Morphology Comment Appears Adequate; RBC Distribution Width 12.9 % (11.5-14.5); Red Blood Cell (RBC) Count 3.23 mill/uL (4.70-6.10); White Blood Cell (WBC) Count 26.3 thou/uL (4.8-10.8)
[2019-01-16 04:37] LABS: Anion Gap 13 mmol/L (10-20); BUN (Urea Nitrogen) 17 mg/dL (8.4-25.7); Calc. Creatinine Clearance 82 mL/min (70-130); Calcium 8.1 mg/dL (7.8-10.44); Carbon Dioxide 20 mmol/L (23-31); Chloride 103 mmol/L (98-107); Estimated GFR-MDRD 87; Glucose 104 mg/dL (83-110); Potassium 3.4 mmol/L (3.5-5.1); Sodium 133 mmol/L (136-145)
[2019-01-16] MEDS ORDERED: VANCOMYCIN IVPB PRN (07:33)
[2019-01-16] MEDS ORDERED: MEROPENEM 1 GM/50 ML 1 GM in Premix Bag 1 BAG IVPB SCH (08:00)
[2019-01-16] MEDS ORDERED: Amlodipine 10 MG TAB PO SCH (09:00)
[2019-01-16] MEDS ORDERED: Amlodipine 5 MG TAB PO SCH (09:00)
[2019-01-16] MEDS ORDERED: Ubidecarenone 50 MG CAP PO SCH (09:00)
[2019-01-16] MEDS ORDERED: Calcium Carbonate + Vit D 1 TAB PO SCH (09:00)
[2019-01-16] MEDS ORDERED: Aspirin Chewable 81 MG TAB PO SCH (09:00)
[2019-01-16] MEDS ORDERED: Enoxaparin Sodium 40 MG/0.4 ML SYRINGE SC SCH (09:00)
[2019-01-16] MEDS ORDERED: Multivitamin W/ Minerals 1 TAB PO SCH (09:00)
[2019-01-16] MEDS ORDERED: Bicalutamide 50 MG TAB PO SCH ×2 (09:00→20:00)
[2019-01-16] MEDS ORDERED: Non-Formulary Item 1 EACH (Valsartan/Hydrochlorothiazide [Diovan Hct] 1 TABLET) PO SCH (09:00)
[2019-01-16] MEDS ORDERED: Pregabalin 50 MG CAP PO SCH (09:00)
[2019-01-16] MEDS ORDERED: Fluticasone Propionate Nasal Spray 16 gm Bottle NASAL SCH (09:00)
[2019-01-16] MEDS ORDERED: Valsartan 80 MG TAB PO SCH ×2 (09:00→09:30)
[2019-01-16] MEDS ORDERED: Hydrochlorothiazide 25 MG TAB PO SCH ×2 (09:00)
[2019-01-16] MEDS: Senokot S 8.6-50 MG TAB PO SCH (09:54)
[2019-01-16] MEDS ORDERED: Nitrofurantoin Monohyd/M-Cryst 100 MG CAP PO SCH ×2 (10:00→21:00)
[2019-01-16] MEDS: Tamsulosin HCl 0.4 MG CAP PO SCH (10:29)
[2019-01-16 11:27] VITALS: BP 149/67; TEMP 98.8
--- NOTE | 2019-01-16 12:08 | EKG ---
Test Reason : Blood Pressure : / mmHG Vent. Rate : 099 BPM Atrial Rate : 099 BPM P-R Int : 200 ms QRS Dur : 082 ms QT Int : 328 ms P-R-T Axes : 027 -03 017 degrees QTc Int : 420 ms Sinus rhythm with Premature atrial complexes Cannot rule out Anterior infarct , age undetermined Abnormal ECG Confirmed by KURTIS LONG, DANNA ([id number]), video effects editor GROVER MARTINEZ ([id number]) on 01/16/2019 12:07:57 PM Referred By: Confirmed By:DANNA HULL MD
[2019-01-16] MEDS ORDERED: Potassium Chloride 20 MEQ TAB PO SCH (14:00)
--- NOTE | 2019-01-16 18:01 | CON ---
DATE OF CONSULTATION: 01/16/2019 REASON FOR CONSULTATION: Complicated UTI/fever. HISTORY OF PRESENT ILLNESS: An 78-year-old, he recently diagnosed with metastatic prostate cancer with lymph node and bone mets with a large mass causing bilateral hydronephrosis. The patient had bilateral renal stents placed. The right stent was not functional, so he required percutaneous nephrostomy and the right stent was removed. He had a Sawant catheter and then in and out catheterization for a while, now he is voiding without difficulty. The patient has been started on chemotherapy for the metastatic cancer in the pelvis and developed fever and was admitted. He received meropenem that was not actually given because the patient had a history of penicillin and he declined the medication, received one dose of vancomycin. He has felt improved since admission. Has not had a fever again, maybe a low-grade temperature of 99.7 recently. Other vital signs are normal. He currently is feeling well. Denies headaches, visual symptoms, sore throat, odynophagia, or dysphagia. No cough or sputum production. No chest pain. No abdominal pain. Voiding without difficulty. No back pain. No joint symptoms. No neurological symptoms. PAST MEDICAL HISTORY: Metastatic prostate cancer, lymph nodes in bone, invasive mass in the pelvic area with bilateral hydronephrosis status post bilateral stents. The right kidney stent was removed because it was nonfunctional and a percutaneous nephrostomy placed, which the patient still carries. Hyperlipidemia and hypertension. PAST SURGICAL HISTORY: Appendectomy, hernia repair, cholecystectomy, right shoulder arthroscopy, cataracts, skin cancer removal, and cardiac cath. SOCIAL HISTORY: Lives in [place]. Former smoker. FAMILY HISTORY: CVA and type 2 diabetes. CURRENT MEDICATIONS: 1. Ruth. 2. Norvasc. 3. Casodex. 4. Coenzyme Q. 5. Lovenox. 6. Drisdol. 7. Flonase. 8. Hydrochlorothiazide. 9. Lactulose. 10. Macrobid. 11. Lyrica. 12. Zocor. PHYSICAL EXAMINATION: VITAL SIGNS: 98.8. Other vital signs are essentially normal. Mild elevation of systolic blood pressure. SKIN: No skin areas of breakdown. Peripheral IV access. No Sawant catheter. No lymphadenopathy. HEENT: Ocular movements conjugate. Oral cavity normal. Numerous teeth in place with no inflammatory changes. NECK: Supple. No jugular vein distention. No thyromegaly. LUNGS: Symmetric clear breath sounds. HEART: S1 and S2. Regular rate. No S3 or S4. ABDOMEN: Soft, not distended or tender. No ascites. No bladder distention. No joint inflammatory activity. Percutaneous nephrostomy with no abnormalities noted. EXTREMITIES: Moves all extremities equally. NEUROLOGIC: Cognitive function appears to be intact. LABORATORY DATA: White cell count of 26.3, hemoglobin 9.4, MCV 86, platelets 177, and 80% neutrophils. Sodium 133, creatinine 0.85, alkaline phosphatase 313, and albumin 3.6. Urinalysis with greater than 50 wbc's and Klebsiella oxytoca with a broad resistance profile except for meropenem, nitrofurantoin, and amikacin. ASSESSMENT AND PLAN: Metastatic prostate cancer, both local and distant metastases, bilateral hydronephrosis due to pelvic mass on chemotherapy. The patient was given Neupogen or Neulasta and has had marked increase in neutrophil count since the chemotherapy. He was never significantly neutropenic though and now has developed transient fever with a positive urine culture and a pyuria. The differential diagnosis includes invasive UTI, as the more likely scenario here, although the findings in the urinalysis are not necessarily related to the febrile episode. The options for management would include placement of a peripherally inserted central catheter line and treatment with meropenem or colistin, but the patient at this time is not inclined to do that. He declined that option. We could also try fosfomycin every other day for five doses and I discussed with them that there is a high a chance of failure of that option. The patient has had adequate resolution of the obstruction and is able to void now without difficulty and has a functioning nephrostomy tube and there is a significant chance that he might be clinically asymptomatic on fosfomycin for a brief period of time. In the other hand, he might experience recrudescence of the fever. In that case, he would have to be readmitted and have a peripherally inserted central catheter line placement and start meropenem after repeat cultures. Thromboembolism is not likely. There is no other intraabdominal inflammatory process or respiratory tract involvement noticed at this point in time. Job ID: [id number] [facility]
[2019-01-16] MEDS ORDERED: Tamsulosin HCl 0.4 MG CAP PO SCH (21:00)
[2019-01-17] MEDS ORDERED: Valsartan 80 MG TAB PO SCH (09:00)
--- NOTE | 2019-01-18 12:53 | DIS ---
DATE OF ADMISSION: 01/15/2019 DATE OF DISCHARGE: 01/16/2019 DIAGNOSES AT THE TIME OF DISCHARGE: 1. Urinary tract infection, presenting with fever. 2. 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 3. 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 4. Hypertension. 5. Elevated white cell count, felt to be mostly related to use of Neulasta with his last chemotherapy. 6. Hyperlipidemia. CONSULTANTS: 1. Dr. Lin, Urology Service and Dr. Johnston, Urology Service. 2. Dr. Odom, Infectious Disease Service. 3. Dr. Figueroa, Oncology Service. HOSPITAL COURSE: The patient is an 78-year-old male, who was recently diagnosed with aggressive form of prostate cancer with bone metastasis, which means stage IV, who received chemotherapy approximately 8 days prior to this hospitalization by Dr. Figueroa and got admitted to the hospital with 1-day history of fever up to 101.4, shakiness, sweating. After the patient called Dr. Figueroa, he was advised to go to the emergency room for further evaluation. The patient had nephrostomy tube placed by Dr. Lin approximately a month ago, then he had right ureteral stent removed soon after that. He was self-catheterizing four times a day and he started having some ability to empty bladder much better recently. He denied any cough or shortness of breath. No abdominal pain. His Sawant catheter was removed 2 weeks ago. He denied any nausea or vomiting. At the time of emergency room visit, his white count was 34,000, hemoglobin 11.1, hematocrit 32, neutrophils 76, bands 4. Sodium was low at 126, potassium 4.2, chloride 95, CO2 of 21, BUN 20, creatinine 1.17, alkaline phosphatase was elevated at 313. Urine showed turbid clarity, protein 50, trace blood, leukocyte esterase is 500, 4 to 6 rbc's on the scope along with wbc's, which were greater than 50 and 4+ bacteria, and the rest of the labs were within normal limits. Chest x-ray did not show any abnormalities and the CT of the brain was done because he had very transient episode of acute mental dysfunction, but this CT did not show any acute abnormalities. It was felt that maybe he was septic because his white count was up to 34,000 with fever. He had influenza type A and B done in the emergency room and they were negative. 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 The patient was started on IV fluids and vancomycin and cefepime. Blood cultures were done. The next day, his white cell count was dropped to 24,000. Clinically, he looked good. In the beginning, we thought that maybe he is septic, but this was most likely related to his last Neulasta use during his chemotherapy approximately 8 days ago prior to this hospitalization. Dr. Lin saw the patient and this was followed by Dr. Johnston, who covered for him over the weekend. Dr. Johnston recommended to use Macrobid for outpatient treatment, but after consultation with Dr. Odom for Infectious Diseases, the patient was given prescription for fosfomycin and no Macrobid to take at home. His two blood cultures came back negative in 48 hours, but urine culture came back positive for Klebsiella oxytoca, which was multiresistant organism, sensitive to only meropenem and nitrofurantoin and amikacin. The patient refused to take meropenem and his temperature went down and today was up to 99.7 and maximal temperature yesterday was 100.4. Now, the temperature is 98.8, pulse is 84, respirations 16, O2 saturation 95% on room air, blood pressure is 149/67. He is discharged home in good condition with recommendation to stay on a low-salt diet. Activities as tolerated. He will continue on fosfomycin as per Dr. Odom' recommendation. The patient was given prescription for that from Dr. Odom. Also, he will continue his previously scheduled all other medications, which are Casodex 50 mg once a day, valsartan/hydrochlorothiazide one tablet once a day, Flomax 0.4 mg q.h.s., Senokot two tablets twice a day, Lyrica 50 mg p.o., lovastatin 20 mg q.h.s., hydrocodone 10/325 mg one tablet every 4 hours p.r.n. as needed, fluticasone two sprays p.r.n. as needed, Nexium 40 mg p.o. daily, and amlodipine 10 mg daily. He is leaving the hospital in good condition. He will follow up with Dr. Lin and Dr. Figueroa. The patient was given phone numbers to call those offices and set up followup appointment, and the time spent on this discharge is less than 30 minutes. Job ID: [id number]
== END 2019-01-16 15:26 | disposition home or self-care (01) | DRG 690 ==
LOC: ERS 19:33 → SURG A 01-15 01:15 → OBSVTOIN 01-15 09:53
PROVIDERS: ADMIT Hospitalist; ATTEND Hospitalist
DX: N13.6 Pyonephrosis (principal); E22.2 Syndrome of inappropriate secretion of antidiuretic hormone; C79.51 Secondary malignant neoplasm of bone; C61 Malignant neoplasm of prostate; I10 Essential (primary) hypertension; E78.5 Hyperlipidemia, unspecified; K21.9 Gastro-esophageal reflux disease without esophagitis; T45.8X5A Adverse effect of other primarily systemic and hematological agents, initial encounter; B96.1 Klebsiella pneumoniae [K. pneumoniae] as the cause of diseases classified elsewhere; Z16.30 Resistance to unspecified antimicrobial drugs; Z92.21 Personal history of antineoplastic chemotherapy; Z90.49 Acquired absence of other specified parts of digestive tract; Z98.41 Cataract extraction status, right eye; Z98.42 Cataract extraction status, left eye; Z85.828 Personal history of other malignant neoplasm of skin; Z87.891 Personal history of nicotine dependence; Z88.0 Allergy status to penicillin; Z88.2 Allergy status to sulfonamides
CPT/HCPCS: 36415; 51701; 70450; 71045; 80048; 80053; 81003; 81015; 83605; 84145; 84484; 85025; 87040; 87077; 87086; 87186; 87804; 93005; 94760; 96361; 96365; 96367; J0692; J1650; J2185; J3370; J3490

== ENCOUNTER 2019-02-26 07:17 | Day surgery (SDC) | payer MEDICARE, OTHER ==
[2019-02-25 11:31] VITALS: BMI 27.8
[2019-02-26] MEDS ORDERED: Prevnar 13-Val Conj/PF 0.5 ML SYRINGE IM ONE (11:45)
[2019-02-26] MEDS ORDERED: FLU VACC TS2019-20(65YR UP)/PF 180 MCG/0.5 ML SYRINGE IM ONE (11:45)
[2019-02-26] MEDS ORDERED: Iopamidol 300 61% 50 ML VIAL FS ONE (13:01)
--- NOTE | 2019-02-26 13:06 | SPC ---
EXAM: SPC INJ PROC NEPH /URET EXIST PROVIDED CLINICAL HISTORY: Patient with bilateral ureteral obstruction secondary to prostate cancer. Evaluation of the right maryana al collecting system and ureter was requested for possible removal of the nephrostomy tube. COMPARISON: None FINDINGS: A right nephrostogram was performed. 10 mL of Isovue-300 contrast was injected into the right renal c ollecting system with contrast coursing down the ureter to the level of the mid ureter. Sequential imaging was obtained at 5, 10, and 15 minutes with delayed imaging obtained up to 40 minutes. Small a mount of contrast does extend into the urinary bladder, but the majority of the contrast remains within the right renal collecting system as well as in the ureter to the level of the inferior aspect of the right sacroiliac joint. IMPRESSION: Right nephrostogram demonstrating persistence of contrast within the right renal collecting system an d ureter imaging out to approximately 40 minutes with suggestion of only minimal contrast extending into the urinary bladder.
--- NOTE | 2019-02-26 14:55 | SPC ---
EXAM: SPC PERC TUBE CHANGE S I PROVIDED CLINICAL HISTORY: Bilateral ureteral obstruction secondary to prostate cancer. Patient has right nephrostomy tube in pl eliana. Removal or replacement of the nephrostomy tube was requested. A tube nephrostogram was performed prior to this examination, but the right renal collecting system and ureter do not complete ly empty. As result nephrostomy tube exchange was performed. COMPARISON: Right nephrostogram images obtained prior to this exam. Fluoroscopy: Total time is 1.8 minutes with total dose of 4799 mGy centimeter squared. TECHNIQUE: After informed consent was obtained, the patient was placed on the angiography table in the prone pos ition. The indwelling nephrostomy tube and surrounding area were meticulously prepped and draped in usual sterile fashion. Attempts at exchanging the nephrostomy tube over a 0.035 inch [employer] guidewir e were unsuccessful as the guidewire was unable to be advanced distal to the tip of the nephrostomy tube. As result, the catheter was exchanged over a 0.035 inch Glidewire for a new 8 [place] percutaneo us nephrostomy tube. The distal portion of the nephrostomy tube was positioned in the right renal pelvis. Contrast injection confirms placement in the renal collecting system. The tube was flushed an d placed to gravity drainage. Dry sterile dressing was placed. Patient tolerated the procedure well and without immediate complication. IMPRESSION: Technically successful right nephrostomy tube replacement.
== END 2019-02-26 11:15 | disposition home or self-care (01) ==
LOC: SPEC 07:17
PROVIDERS: ATTEND Urology
DX: N13.1 Hydronephrosis with ureteral stricture, not elsewhere classified (principal); C61 Malignant neoplasm of prostate; J44.9 Chronic obstructive pulmonary disease, unspecified; Z88.0 Allergy status to penicillin; Z88.2 Allergy status to sulfonamides; Z79.899 Other long term (current) drug therapy
CPT/HCPCS: 50431; 50436; 75984; C1729; C1769; Q9967

== ENCOUNTER 2019-03-08 08:09 | Outpatient (CLI) | payer MEDICARE, OTHER ==
--- NOTE | 2019-03-08 09:25 | CT ---
CT CHEST WITH CONTRAST: CT ABDOMEN WITH CONTRAST: CT PELVIS WITH CONTRAST: HISTORY: Prostate cancer. Osseous metastases. CORRELATION: None. COMPARISON: 12/15/2018 FINDINGS: CHEST: Mediastinum: No mass, lymphadenopathy or hematoma. Aorta: Thoracic aorta and abdominal aorta have a normal caliber. Atherosclerosis. No aneurysm or marilyn aortic fat stranding Heart: Normal heart size. No significant pericardial fluid. There are coronary artery calcifications. Trachea and central bronchi: Patent Pleural spaces: No pleural effusion Right lung: No masses or consolidation. No suspicious nodules. Dependent atelectatic changes. Left lung:No masses or consolidation. No suspicious nodules. Dependent atelectatic changes. Pneumothorax: None. ABDOMEN: Gallbladder: Surgically absent Portal vein: Patent Liver: Appropriate enhancement. 3.5 cm Spleen: Appropriate enhancement Pancreas: Appropriate enhancement Adrenal glands: Appropriate enhancement Lymphadenopathy: There is periaortic and aortocaval lymphadenopathy. Conglomeration of enlarged left periaortic lymph node measures 4.6 cm anterior-posterior by 3.6 cm mediolateral, just inferior to the origin of the renal arteries. Additional bulky lymphadenopathy is noted along both common iliac c hains. Conglomeration of enlarged right iliac lymph node measures 2.7 x 3.4 cm. Conglomeration of enlarged right iliac lymph node measures 3.4 x 2.7 cm. Previously, the largest conglomeration of lymp h nodes in left aortic region measured 6.1 x 4.8 cm. There was a large aortocaval lymph node that previously measured 3.9 x 4.1 cm. There has also been interval decrease in size of lymphadenopathy al whitney the left and right common iliac chain. Kidneys: There is a right-sided percutaneous nephrostomy. No evidence of obstructive uropathy. Approp riate enhancement of the right kidney. There is a left-sided double-J ureteral stent. Mild dilatation of the left intrarenal collecting system. Ureteral stent is appropriately placed. Appropri ate enhancement of the left kidney. Mesentery: No mass, free air or free fluid Alimentary canal: Note is made of a hiatal hernia. No evidence of bowel obstruction. Ileocecal juncti on is unremarkable. Scattered fecal material in a nondistended, nondilated colon. PELVIS: Redemonstration of a large heterogeneous left pelvic mass. Currently, this pelvic mass measu res 5.1 x 5.8 cm (previously measuring 9.9 x 9.0 cm. Mild urinary bladder wall serosal and mucosal thickening. Previously noted lymphadenopathy along the left external iliac chain has significantly de creased in size. Currently, the largest lymph node measures 1.7 x 1.5 cm. Previously, this conglomeration of lymph nodes measured 4.5 x 3.3 cm. OSSEOUS STRUCTURES: Redemonstration of multifocal sclerotic lesions compatible with osseous metastase s. The metastatic lesions appear to be more sclerotic, suggesting possible post treatment change in the spine. There do appear to be new sclerotic foci in the bony pelvis suggesting possible interval d evelopment of osseous metastases. No evidence of pathologic fracture. IMPRESSION: Partial response to therapy. There appears to be interval decrease in size of a left hemipelvic mass as well as retroperitoneal lymphadenopathy. There does appear to be progression of osseous metastases with increased sclerotic lesions involving the bony pelvis. No associated pathologic fract ure. Transcribed Date/Time: 03/08/2019 11:42 AM
== END 2019-03-08 08:10 | disposition home or self-care (01) ==
LOC: BICCT 08:09
PROVIDERS: ATTEND Internal Medicine Hematology & Oncology
DX: C79.51 Secondary malignant neoplasm of bone (principal); C61 Malignant neoplasm of prostate; R59.0 Localized enlarged lymph nodes
CPT/HCPCS: 71260; 74177

== ENCOUNTER 2019-03-31 14:10 | Outpatient (CLI) | payer MEDICARE, OTHER ==
--- NOTE | 2019-03-31 14:48 | ULT ---
BILATERAL RENAL ULTRASOUND: HISTORY: Evaluate for hydronephrosis. COMPARISON: 12/19/2018. FINDINGS: Right kidney: Normal cortical echotexture. No hydronephrosis. There is right renal cortical thinning. Echogenic focus in the right renal cortex measuring 0.5 cm. Right kidney measurements: 5.2 x 10.1 x 5.0 cm. Left kidney: Normal cortical echotexture. Mild fullness of the lower pole pelvis. There is a left maryana al cortical thinning. Left kidney measurements 6.3 x 11.8 x 7.1 cm. Urinary bladder: Slight irregularity involving the urinary bladder mucosa. There is a left ureteral j et is appreciated. Right ureteral jet is not identified. Prostate: Enlarged, lobulated heterogeneous measuring 3.7 x 5.0 x 6.7 cm. IMPRESSION: 1. Mild fullness of the left lower pole pelvis. 2. Enlarged heterogeneous prostate gland. 3. Irregular urinary bladder mucosa. Consider cystoscopy. Transcribed Date/Time: 03/31/2019 2:50 PM
== END 2019-03-31 14:11 | disposition home or self-care (01) ==
LOC: BICULT 14:10
PROVIDERS: ATTEND Urology
DX: N13.30 Unspecified hydronephrosis (principal); N40.0 Benign prostatic hyperplasia without lower urinary tract symptoms; N32.89 Other specified disorders of bladder
CPT/HCPCS: 76770

== ENCOUNTER 2019-04-01 15:08 | Outpatient (CLI) | payer MEDICARE, OTHER ==
--- NOTE | 2019-04-01 15:40 | ULT ---
LEFT LOWER EXTREMITY VENOUS DUPLEX EXAM: 04/01/19 HISTORY: Left leg pain and swelling. Real time color Doppler evaluation of the left lower extremity was performed from groin to calf. This includes evaluation of the common femoral, superficial and profunda femoral, saphenous, popliteal, a nd posterior tibial veins. This shows a patent deep venous system. There is normal compressibility an d augmentation. There is no evidence of DVT. IMPRESSION: No evidence of DVT of the left lower extremity. POS: [facility]
== END 2019-04-01 15:09 | disposition home or self-care (01) ==
LOC: ULT 15:08
PROVIDERS: ATTEND Internal Medicine Hematology & Oncology
DX: M79.605 Pain in left leg (principal); R60.0 Localized edema; I82.90 Acute embolism and thrombosis of unspecified vein
CPT/HCPCS: 36415; 80053; 82248; 83615; 84100; 84153; 84550

== ENCOUNTER 2019-04-09 16:21 | Outpatient (CLI) | payer MEDICARE, OTHER ==
--- NOTE | 2019-04-09 16:35 | RAD ---
Exam: Chest 2 views HISTORY:Cough Comparison: 01/14/2019 FINDINGS: Lungs: Mild atelectasis is seen in the right lung base, adjacent elevation of right hemidiaphragm Cardiac silhouette:Enlarged cardiac silhouette Pulmonary vessels: Stable appearing Pleural Spaces: Clear Pneumothorax: None Osseous abnormalities: None of acuity. IMPRESSION: Enlarged cardiac silhouette. Correlate for evidence of CHF. Mild right basilar atelectasis.
== END 2019-04-09 16:22 | disposition home or self-care (01) ==
LOC: BICRAD 16:21
PROVIDERS: ATTEND Physician Assistant
DX: R05 Cough (principal); J98.11 Atelectasis; I51.7 Cardiomegaly
CPT/HCPCS: 36415; 71046; 81015; 85025; 87077; 87086; 87186

== ENCOUNTER 2019-05-20 12:39 | Outpatient (CLI) | payer MEDICARE, OTHER ==
--- NOTE | 2019-05-20 13:16 | ULT ---
ULTRASOUND RETROPERITONEUM COMPLETE: (RENAL) DATE: 05/20/2019 HISTORY: 79-year-old male with "bilateral hydronephrosis." Prostate cancer. FINDINGS: The right kidney measures 11 x 5.5 x 5 cm. The left kidney measures 13 x 6 x 6 cm. Both kidneys have normal parenchymal echogenicity. There is no hydronephrosis. No moderate sized or large renal cystic or solid renal lesion is identified. Cursory images of the urinary bladder demonstrate diffuse minimal mural thickening and mural irregula rity. Prevoid bladder volume: 455 mL. Post void bladder volume: 95 mL. The prostate gland was not imaged in detail on the current ultrasound. IMPRESSION: 1. No hydronephrosis. 2. Incomplete micturition.
== END 2019-05-20 12:40 | disposition home or self-care (01) ==
LOC: BICULT 12:39
PROVIDERS: ATTEND Urology
DX: N13.30 Unspecified hydronephrosis (principal); R39.14 Feeling of incomplete bladder emptying
CPT/HCPCS: 76770; 84153

== ENCOUNTER 2019-05-28 13:59 | Outpatient (CLI) | payer MEDICARE, OTHER ==
--- NOTE | 2019-05-28 18:35 | MRI ---
MRI OF PELVIS PERFORMED WITH AND WITHOUT CONTRAST ENHANCEMENT: 05/28/19 COMPARISON: CT performed 02/26/[address] performed 12/15/18. HISTORY: Prostate cancer with bone mets. The pelvic lymphadenopathy which is somewhat ill-defined and confluent adenopathy in the common iliac chains and extending into the internal iliac and external iliac chains is again demonstrated. There is a slight overall interval improvement to the degree of lymphadenopathy. It is difficult to accurat rosa measure but one of the better areas for comparison is at the proximal external iliac chain on the right where the node measured 18 mm in short axis dimension now measuring 14 mm. Similar location on the left side showed the nodes measuring approximately 14 mm in short axis dimension as compared to 10 on today's study. There has also been a slight interval decrease in size of the soft tissue mass w hich is just along the left side of the prostate. The best comparison is the AP measurement of 5 cm o n the prior study as compared to 4 cm on the current exam. The bony metastatic lesions appear stable. I do not see any signs of any pathologic fracture. The siz e and appearance of the right femoral neck lesion is similar. IMPRESSION: 1. Fairly stable overall appearance to the bony metastatic disease. 2. Slight interval improvement in some of the pelvic lymphadenopathy. POS: [facility]
--- NOTE | 2019-05-28 19:06 | MRI ---
MRI OF LUMBAR SPINE PERFORMED WITH AND WITHOUT CONTRAST ENHANCEMENT: 05/28/19 HISTORY: Prostate cancer with bone mets. COMPARISON: CT examination of 03/08/19 and bone scan study of 12/29/18. Vertebral bodies all maintain normal height. Severe disc narrowing is again noted at L4-5. Metastatic bone lesions appear stable as compared to the previous CT study. I do not see any new lesions. No si gns of any compression fractures. There does appear to be a mild interval improvement to some of the periaortic lymph nodes. The best e xample of this is area of confluent adenopathy near the left renal artery measuring 3.3 as compared t o 4 cm on the previous CT study and slightly inferior to this is an area of confluent adenopathy mercedes uring 3.6 x 4.5 cm now measuring 3.3 x 3.4 cm. A left common iliac node is 2.1 cm as compared to 2.3 on the previous exam. T12-L1: Unremarkable. L1-2: Unremarkable. L2-3: Degenerative facet changes without significant canal or foraminal stenosis. L3-4: Degenerative facet changes without significant canal or foraminal narrowing. L4-5: Canal shows some borderline narrowing. There is some disc bulging. There are facet and ligament ous hypertrophic changes. There is some moderate bilateral foraminal narrowing at this level. L5-S1: Unremarkable. IMPRESSION: 1. Stable appearance to the size and number of the bone lesions. 2. Interval slight improvement to the periaortic adenopathy. POS: [facility]
== END 2019-05-28 14:00 | disposition home or self-care (01) ==
LOC: SCSMRI 13:59
PROVIDERS: ATTEND Internal Medicine Hematology & Oncology
DX: C61 Malignant neoplasm of prostate (principal); C79.51 Secondary malignant neoplasm of bone; M89.9 Disorder of bone, unspecified; R59.0 Localized enlarged lymph nodes
CPT/HCPCS: 72158; 72197

== ENCOUNTER 2019-06-24 07:08 | Day surgery (SDC) | payer MEDICARE, OTHER ==
[2019-06-23 14:48] VITALS: BMI 24.8
[2019-06-24] MEDS ORDERED: FLU VACC TS2019-20(65YR UP)/PF 180 MCG/0.5 ML SYRINGE IM ONE (09:00)
--- NOTE | 2019-06-24 09:52 | SPC ---
EXAM: SPC INJ PROC NEPH /URET EXIST PROVIDED CLINICAL HISTORY: Patient with bilateral ureteral obstruction secondary to prostate cancer. Evaluation right renal sonny ecting system and ureter was requested for possible removal of nephrostomy tube versus replacement. COMPARISON: 02/26/2019 FINDINGS: A right nephrostogram was performed. Approximately 15 mL of Isovue-300 contrast was injected into the right renal collecting system with contrast coursing down a normal caliber ureter and subsequently into the urinary bladder. The patient did not experience discomfort with contrast injection. Repeat i maging at 15 minutes demonstrates persistence of contrast within the left ureter and in the collecting system, but contrast does appear to extend into the urinary bladder. Left ureteral stent s een on prior exam is been removed. Imaging findings were discussed with Dr. Lin at this time. Dr. Lin requested nephrostomy tube exchange. IMPRESSION: Right nephrostogram demonstrating extension of contrast into the urinary bladder, and there is no reynold dence of hydronephrosis or hydroureter. There is persistence of contrast in the renal collecting system on the 15 minute delayed image, but there is slow progression of contrast into the urinary radha dder.
--- NOTE | 2019-06-24 10:37 | SPC ---
SPC EXCHANGE NEPHROSTOMY CATHETER: PROVIDED CLINICAL HISTORY: Bilateral ureteral obstruction secondary to prostate cancer. Patient has right-sided nephrostomy tube in place. Replacement of nephrostomy tube was requested. COMPARISON: 02/26/2019. FLUOROSCOPY: Time-2.6 minutes. Dose 19,777 mGy*^cm2. TECHNIQUE: After informed consent was obtained, the patient was placed on the angiography table in the prone pos ition. The indwelling right nephrostomy tube and surrounding area were to meticulously prepped and draped in usual sterile fashion. The nephrostomy tube was punctured with an 18-gauge needle, and cont rast was injected. The distal portion of the nephrostomy tube was noted to be within a peripheral calyx. A 0.035 inch Bentsen guidewire was placed, but after multiple attempts, the guidewire was unab le to be manipulated distal to the tip of the nephrostomy tube. The nephrostomy tube and guidewire were both removed. A 5 Fijian Berenstein catheter and 0.035 inch Bentsen guidewire were then manipula goldy into the right renal collecting system and subsequently down the right ureter. Contrast injection confirms placement. The catheter was exchanged over the guidewire for an 8 Fijian nephrostomy tube. The distal portion of the nephrostomy tube was placed in the renal pelvis. Contrast injection confirms placement. The catheter was placed to gravity drainage and sutured in place utilizing 2-0 Ethilon suture materia l. A dry sterile dressing was placed. The patient tolerated the procedure well and without immediate complication. The patient was transported to radiology nurses holding area for further garland toring prior to discharge. IMPRESSION: Technically successful right nephrostomy tube replacement. Transcribed Date/Time: 06/24/2019 11:08 AM
== END 2019-06-24 09:40 | disposition home or self-care (01) ==
LOC: SPEC 07:08
PROVIDERS: ATTEND Urology
PROC: 0T25X0Z Change Drainage Device in Kidney, External Approach (ICD-10-PCS; principal; 2019-06-24)
DX: C61 Malignant neoplasm of prostate (principal); N13.5 Crossing vessel and stricture of ureter without hydronephrosis; N32.0 Bladder-neck obstruction; C77.2 Secondary and unspecified malignant neoplasm of intra-abdominal lymph nodes; I10 Essential (primary) hypertension; E78.5 Hyperlipidemia, unspecified; K21.9 Gastro-esophageal reflux disease without esophagitis; N40.0 Benign prostatic hyperplasia without lower urinary tract symptoms; J44.9 Chronic obstructive pulmonary disease, unspecified; Z87.891 Personal history of nicotine dependence; Z79.82 Long term (current) use of aspirin; Z79.899 Other long term (current) drug therapy; Z88.0 Allergy status to penicillin; Z88.1 Allergy status to other antibiotic agents; Z88.2 Allergy status to sulfonamides; Z88.8 Allergy status to other drugs, medicaments and biological substances
CPT/HCPCS: 50431; 50436; 75984; C1729

== ENCOUNTER 2019-07-05 15:58 | Outpatient (CLI) | payer MEDICARE, OTHER ==
--- NOTE | 2019-07-05 16:11 | RAD ---
EXAM: Chest 2 views: HISTORY: Cough COMPARISON: 04/09/2019 FINDINGS: There is a normal-sized cardiomediastinal silhouette. There is no evidence of consolidation, mass, or pleural effusion. The bones are unremarkable. IMPRESSION: No evidence of acute cardiopulmonary disease
== END 2019-07-05 15:59 | disposition home or self-care (01) ==
LOC: BICRAD 15:58
PROVIDERS: ATTEND Family Medicine
DX: R05 Cough (principal)
CPT/HCPCS: 71046

== ENCOUNTER 2019-09-21 07:07 | Day surgery (SDC) | payer MEDICARE, OTHER ==
[2019-09-20 12:03] VITALS: BMI 24.9
[2019-09-21 07:58] VITALS: BP 151/72; TEMP 98
--- NOTE | 2019-09-21 08:55 | SPC ---
RIGHT NEPHROSTOGRAM WITH FLUOROSCOPY FLUOROSCOPIC GUIDED RIGHT PCN REMOVAL: HISTORY: Prostate cancer. Ureteral obstruction. Evaluate for ureteral patency. Fluoroscopy time 1.0 minute. FINDINGS: After explaining the procedure and answering all questions, approximately 10 cc of iodine contrast wa s carefully instilled through the indwelling right PCN. Coil was positioned in a lateral interpolar calyx. Minimal distention of the calyces. There was immediate extension of contrast through the ureter and into the urinary bladder with ureter al jet visualized. After 20 minutes, reevaluation with fluoroscopy shows minimal remaining contrast within a right renal calyx. Remainder of the contrast had passed into the urinary bladder. The external portion of the right PCN was prepped and draped in the usual sterile fashion. Catheter was ligated. A 0.035 Amplatz wire was placed to hold position and removed the PCN catheter. Wire was also removed. Dressing placed over the drainage site. Patient tolerated the procedure well and was dismissed in good condition. IMPRESSION : Right ureter is patent. No evidence of obstruction. Successful removal of the right PCN. Transcribed Date/Time: 09/21/2019 12:41 PM
[2019-09-21] MEDS ORDERED: Iopamidol 300 61% 50 ML VIAL FS ONE (12:07)
== END 2019-09-21 09:10 | disposition home or self-care (01) ==
LOC: SPEC 07:07
PROVIDERS: ATTEND Urology
PROC: BT111ZZ Fluoroscopy of Right Kidney using Low Osmolar Contrast (ICD-10-PCS; principal; 2019-09-21)
PROC: 0TP5X0Z Removal of Drainage Device from Kidney, External Approach (ICD-10-PCS; 2019-09-21)
DX: N13.5 Crossing vessel and stricture of ureter without hydronephrosis (principal); C61 Malignant neoplasm of prostate; I10 Essential (primary) hypertension; J44.9 Chronic obstructive pulmonary disease, unspecified; N40.0 Benign prostatic hyperplasia without lower urinary tract symptoms; K21.9 Gastro-esophageal reflux disease without esophagitis; Z87.891 Personal history of nicotine dependence; Z79.899 Other long term (current) drug therapy; Z79.82 Long term (current) use of aspirin; Z88.0 Allergy status to penicillin; Z88.1 Allergy status to other antibiotic agents; Z88.2 Allergy status to sulfonamides; Z88.8 Allergy status to other drugs, medicaments and biological substances
CPT/HCPCS: 50431

== ENCOUNTER 2020-02-01 12:02 | Outpatient (CLI) | payer MEDICARE, OTHER ==
--- NOTE | 2020-02-01 13:42 | RAD ---
PA AND LATERAL CHEST: 02/01/20 HISTORY: Cough. COMPARISON: 07/05/19 study. Heart size is enlarged. There are atherosclerotic changes of the aorta. There is some linear change i n the lung bases more suggestive of a scar although perhaps atelectasis. No focal infiltrative proces s noted. IMPRESSION: 1. Cardiomegaly with more chronic appearing lung change. 2. Sclerotic appearing densities in some of the thoracic vertebral bodies have been present on t he previous exam of 07/05/19. Also an 04/09/19 exam. The patient does have a history of prostate cance r with bone mets. POS: [facility]
== END 2020-02-01 12:03 | disposition home or self-care (01) ==
LOC: BICRAD 12:02
PROVIDERS: ATTEND Family Medicine
DX: R05 Cough (principal); I51.7 Cardiomegaly; C79.51 Secondary malignant neoplasm of bone; Z85.46 Personal history of malignant neoplasm of prostate
CPT/HCPCS: 71046

== ENCOUNTER 2022-03-04 10:00 | Outpatient (CLI) | payer MEDICARE, OTHER | END 2022-03-04 10:01 | disposition home or self-care (01) | LOC: SCSMRI 10:00 | PROVIDERS: ATTEND Family Medicine | DX: M54.16 Radiculopathy, lumbar region (principal); M25.551 Pain in right hip; C78.6 Secondary malignant neoplasm of retroperitoneum and peritoneum; C79.51 Secondary malignant neoplasm of bone | CPT/HCPCS: 72148 ==

== ENCOUNTER 2022-03-18 08:02 | Outpatient (CLI) | payer MEDICARE, OTHER | END 2022-03-18 08:03 | disposition home or self-care (01) | LOC: NM 08:02 | PROVIDERS: ATTEND Internal Medicine Hematology & Oncology | DX: C61 Malignant neoplasm of prostate (principal); C79.51 Secondary malignant neoplasm of bone | CPT/HCPCS: 78306; A9503 ==

== ENCOUNTER 2022-10-04 10:51 | Outpatient (CLI) | payer MEDICARE, OTHER | END 2022-10-04 10:52 | disposition home or self-care (01) | LOC: SCSRAD 10:51 | PROVIDERS: ATTEND Internal Medicine Hematology & Oncology | DX: R91.1 Solitary pulmonary nodule (principal); C61 Malignant neoplasm of prostate; C79.51 Secondary malignant neoplasm of bone | CPT/HCPCS: 71046 ==

== ENCOUNTER 2022-10-08 09:14 | Day surgery (SDC) | payer MEDICARE, OTHER ==
[2022-10-08] MEDS ORDERED: diphenhydrAMINE 25 MG CAP PO SCH (09:45)
[2022-10-08] MEDS ORDERED: Acetaminophen 500 MG TAB PO SCH (09:45)
[2022-10-08] MEDS ORDERED: diphenhydrAMINE 25 MG CAP ONE (10:29)
[2022-10-08 16:44] VITALS: BP 157/67; TEMP 97.7
== END 2022-10-08 16:44 | disposition home or self-care (01) ==
LOC: ONC/OP 09:14
PROVIDERS: ATTEND Internal Medicine Hematology & Oncology
PROC: 30233N1 Transfusion of Nonautologous Red Blood Cells into Peripheral Vein, Percutaneous Approach (ICD-10-PCS; principal; 2022-10-08)
DX: D64.9 Anemia, unspecified (principal); D69.6 Thrombocytopenia, unspecified; Z88.0 Allergy status to penicillin; Z88.1 Allergy status to other antibiotic agents; Z88.2 Allergy status to sulfonamides; Z88.8 Allergy status to other drugs, medicaments and biological substances
CPT/HCPCS: 36430; 86850; 86900; 86901; 86920; P9016

== ENCOUNTER 2022-10-10 09:36 | Day surgery (SDC) | payer MEDICARE, OTHER ==
[2022-10-10] MEDS ORDERED: Acetaminophen 500 MG TAB PO SCH (10:15)
[2022-10-10] MEDS ORDERED: diphenhydrAMINE 25 MG CAP PO SCH (10:15)
[2022-10-10] MEDS ORDERED: diphenhydrAMINE 25 MG CAP ONE (10:30)
[2022-10-10 12:01] VITALS: BP 127/62; TEMP 98.3
== END 2022-10-10 11:48 | disposition home or self-care (01) ==
LOC: ONC/OP 09:36
PROVIDERS: ATTEND Internal Medicine Hematology & Oncology
DX: D69.6 Thrombocytopenia, unspecified (principal); D64.9 Anemia, unspecified; Z88.0 Allergy status to penicillin; Z88.1 Allergy status to other antibiotic agents; Z88.2 Allergy status to sulfonamides; Z88.8 Allergy status to other drugs, medicaments and biological substances
CPT/HCPCS: 36430; 86850; 86900; 86901; P9035

== ENCOUNTER 2022-12-23 09:30 | Outpatient (CLI) | payer MEDICARE, OTHER | END 2022-12-23 09:31 | disposition home or self-care (01) | LOC: SCSMRI 09:30 | PROVIDERS: ATTEND Internal Medicine Hematology & Oncology | DX: D32.9 Benign neoplasm of meninges, unspecified (principal); C79.51 Secondary malignant neoplasm of bone; C61 Malignant neoplasm of prostate | CPT/HCPCS: 70553; 82565 ==

== ENCOUNTER 2023-03-18 08:25 | Outpatient (CLI) | payer MEDICARE, OTHER | END 2023-03-18 08:26 | disposition home or self-care (01) | LOC: SCSMRI 08:25 | PROVIDERS: ATTEND Internal Medicine Hematology & Oncology | DX: C61 Malignant neoplasm of prostate (principal); C79.51 Secondary malignant neoplasm of bone; H53.8 Other visual disturbances | CPT/HCPCS: 70553 ==

== ENCOUNTER 2024-02-02 13:05 | Outpatient (CLI) | payer MEDICARE, OTHER | END 2024-02-02 13:06 | disposition home or self-care (01) | LOC: SCSMRI 13:05 | PROVIDERS: ATTEND Internal Medicine Hematology & Oncology | DX: C61 Malignant neoplasm of prostate (principal); C79.51 Secondary malignant neoplasm of bone; R97.20 Elevated prostate specific antigen [PSA]; H53.8 Other visual disturbances; G93.9 Disorder of brain, unspecified; I67.89 Other cerebrovascular disease | CPT/HCPCS: 70553; 76376 ==

== ENCOUNTER 2024-02-11 15:47 | Inpatient (IN) | payer MEDICARE, OTHER ==
[2024-02-11] MEDS ORDERED: Electrolyte Replacement Protocol 1 EACH FS SCH (16:32)
[2024-02-11] MEDS: Sodium Chloride 0.9% 1,000 ML IV SCH ×2 (16:48→16:49)
[2024-02-11] MEDS: NOREPINEPHRINE 8 MG/250 ML-D5W 250 ML IVPB SCH (16:49)
[2024-02-11] MEDS: Hydrocortisone Sod Succ/PF 100 mg/2 ml Vial IVP SCH (17:34)
[2024-02-11] MEDS ORDERED: Ondansetron PF 4 MG/2 ML Vial IVP PRN (18:38)
[2024-02-11 18:52] VITALS: BMI 26.2
[2024-02-11] MEDS: Cefepime 1 GM in Sodium Chloride 0.9% 100 ML IVPB SCH (20:03)
[2024-02-11] MEDS: Acetaminophen 325 MG TAB PO PRN (20:09)
[2024-02-11] MEDS: Magnesium 2 GM/50 ML(in water) 2 GM in Premix 1 BAG IVPB SCH (20:43)
[2024-02-11] MEDS ORDERED: Apixaban 5 MG TAB PO SCH (21:00)
[2024-02-11 21:01] LABS: ALT (SGPT) 11 U/L (8-55); AST (SGOT) 42 U/L (5-34); Albumin 2.9 g/dL (3.4-4.8); Alkaline Phosphatase 112 U/L (40-110); Anion Gap 15 mmol/L (10-20); BUN (Urea Nitrogen) 26 mg/dL (8.4-25.7); Bilirubin, Total 0.6 mg/dL (0.2-1.2); Calc. Creatinine Clearance 49 mL/min (70-130); Calcium 7.2 mg/dL (7.8-10.44); Carbon Dioxide 18 mmol/L (23-31); Chloride 107 mmol/L (98-107); Estimated GFR 53; Globulin 2.4 g/dL (2.4-3.5); Glucose 141 mg/dL (83-110); Magnesium 1.8 mg/dL (1.6-2.6); Protein, Total 5.3 g/dL (5.8-8.1); Sodium 136 mmol/L (136-145)
[2024-02-11] MEDS: Apixaban 5 MG TAB PO SCH (21:18)
[2024-02-11] MEDS: Simvastatin 10 MG TAB PO SCH (21:18)
[2024-02-11] MEDS ORDERED: Vancomycin HCl 750 MG in Sodium Chloride 0.9% 250 ML 250 ML IVPB SCH (23:00)
[2024-02-12 05:21] LABS: Hematocrit 29.6 % (42.0-52.0); Hemoglobin 9.6 g/dL (14.0-18.0); Mean Corpuscular HGB CONC 32.4 g/dL (32.0-36.0); Mean Corpuscular Hemoglobin 29.2 pg (27.0-31.0); Mean Platelet Volume 9.6 fL (7.4-10.4); Platelet Count 240 10x3/uL (130-400); RBC Distribution Width 15.2 % (11.5-14.5); Red Blood Cell (RBC) Count 3.29 mill/uL (4.70-6.10)
[2024-02-12 05:27] LABS: Anion Gap 13 mmol/L (10-20); BUN (Urea Nitrogen) 27 mg/dL (8.4-25.7); Calc. Creatinine Clearance 56 mL/min (70-130); Calcium 7.3 mg/dL (7.8-10.44); Carbon Dioxide 19 mmol/L (23-31); Chloride 109 mmol/L (98-107); Estimated GFR 61; Glucose 128 mg/dL (83-110); Potassium 3.9 mmol/L (3.5-5.1); Sodium 137 mmol/L (136-145)
[2024-02-12 06:12] LABS: Band 20 % (5-11); Burr Cells SLIGHT = 2-5 cells HPF (0-1); Dohle Bodies SLIGHT; Macrocytosis SLIGHT = 6-15 cells HPF (0-5); Metamyelocyte 6 % (0-0); Monocytes 6 % (0-10); Neutrophil 69 % (42-75); Ovalocytes SLIGHT = 2-5 cells HPF (0-1); Platelet Adequacy Comment Platelets Normal; Polychromasia SLIGHT = 2-3 cells HPF (0-2); Target Cells SLIGHT = 2-5 cells HPF (0-1); Tear Drops SLIGHT = 2-5 cells HPF (0-1); Toxic Granulation SLIGHT; Vacuoles SLIGHT
[2024-02-12 08:03] LABS: Vancomycin, Random 13.4 ug/mL (See Comment)
[2024-02-12] MEDS: Cefepime 2 GM in Sodium Chloride 0.9% 100 ML IVPB SCH (08:38)
[2024-02-12] MEDS: Aspirin 81 mg Enteric Coated Tablet PO SCH (08:38)
[2024-02-12] MEDS: Pantoprazole 40 MG VIAL IVP SCH (08:38)
[2024-02-12] MEDS ORDERED: Vancomycin 1 GM in Premix 1 BAG IVPB SCH (09:00)
[2024-02-12] MEDS: Vancomycin (BATCH) 1.5 GM in Premix 1 BAG IVPB SCH (12:50)
[2024-02-12] MEDS: Hydrocortisone Sod Succ/PF 100 mg/2 ml Vial IVP SCH (12:52)
[2024-02-12] MEDS: Pregabalin 50 MG CAP PO SCH (22:55)
[2024-02-13] MEDS: Melatonin 3 MG TAB PO SCH (01:53)
[2024-02-13 05:04] LABS: #Basophils Less than 0.03 10x3/uL (0.0-0.2); #Eosinphils Less than 0.03 10x3/uL (0.0-0.7); %Basophils 0.1 % (0.0-1.0); %Eosinophils 0.1 % (0.0-10.0); %Lymphocytes 3.5 % (21.0-51.0); %Monocytes 5.2 % (0.0-10.0); %Neutrophils 90.1 % (42.0-75.0); Hematocrit 28.2 % (42.0-52.0); Hemoglobin 9.1 g/dL (14.0-18.0); Mean Corpuscular HGB CONC 32.3 g/dL (32.0-36.0); Mean Corpuscular Hemoglobin 28.9 pg (27.0-31.0); Mean Corpuscular Volume 89.5 fL (78.0-98.0); Mean Platelet Volume 9.7 fL (7.4-10.4); Platelet Count 189 10x3/uL (130-400); RBC Distribution Width 15.4 % (11.5-14.5); Red Blood Cell (RBC) Count 3.15 mill/uL (4.70-6.10)
[2024-02-13 05:27] LABS: Vancomycin, Random 16.4 ug/mL (See Comment)
[2024-02-13 05:33] LABS: Anion Gap 13 mmol/L (10-20); BUN (Urea Nitrogen) 19 mg/dL (8.4-25.7); Calc. Creatinine Clearance 89 mL/min (70-130); Calcium 7.2 mg/dL (7.8-10.44); Carbon Dioxide 15 mmol/L (23-31); Chloride 113 mmol/L (98-107); Estimated GFR 87; Glucose 117 mg/dL (83-110); Potassium 3.5 mmol/L (3.5-5.1); Sodium 137 mmol/L (136-145)
[2024-02-13] MEDS: Senokot S 8.6-50 MG TAB PO PRN (08:33)
[2024-02-13] MEDS: Potassium Chloride 20 MEQ TAB PO SCH (08:34)
[2024-02-13] MEDS: predniSONE 5 MG TAB PO SCH (08:34)
[2024-02-13] MEDS: Pregabalin 25 MG CAP PO SCH (08:34)
[2024-02-13] MEDS ORDERED: Iopamidol-370 76% 500 ML MDV (1 ML CHARGE) ONE (11:38)
[2024-02-13] MEDS ORDERED: GASTROGRAFIN 30 ML BOT ONE (11:38)
[2024-02-13] MEDS: Dronedarone HCl 400 MG TAB PO SCH (16:03)
[2024-02-13] MEDS ORDERED: Carvedilol 6.25 MG TAB PO SCH (17:00)
[2024-02-13] MEDS ORDERED: Pregabalin 25 MG CAP PO SCH (21:00)
[2024-02-13] MEDS: Pregabalin 50 MG CAP PO SCH (21:36)
[2024-02-13] MEDS: Tamsulosin HCl 0.4 MG CAP PO SCH (21:36)
[2024-02-13] MEDS: Amlodipine 10 MG TAB PO SCH (21:36)
[2024-02-13] MEDS: Melatonin 3 MG TAB PO PRN (21:36)
[2024-02-13] MEDS: ALPRAZolam 0.25 MG TAB PO PRN (21:37)
[2024-02-14 06:13] LABS: #Basophils Less than 0.03 10x3/uL (0.0-0.2); %Basophils 0.1 % (0.0-1.0); %Eosinophils 0.6 % (0.0-10.0); %Lymphocytes 6.6 % (21.0-51.0); %Monocytes 6.4 % (0.0-10.0); %Neutrophils 85.2 % (42.0-75.0); Hematocrit 26.2 % (42.0-52.0); Hemoglobin 8.6 g/dL (14.0-18.0); Mean Corpuscular HGB CONC 32.8 g/dL (32.0-36.0); Mean Corpuscular Hemoglobin 29.4 pg (27.0-31.0); Mean Corpuscular Volume 89.4 fL (78.0-98.0); Mean Platelet Volume 9.3 fL (7.4-10.4); Platelet Count 165 10x3/uL (130-400); RBC Distribution Width 15.3 % (11.5-14.5); Red Blood Cell (RBC) Count 2.93 mill/uL (4.70-6.10)
[2024-02-14 06:41] LABS: Anion Gap 12 mmol/L (10-20); BUN (Urea Nitrogen) 15 mg/dL (8.4-25.7); Calc. Creatinine Clearance 98 mL/min (70-130); Calcium 7.2 mg/dL (7.8-10.44); Carbon Dioxide 20 mmol/L (23-31); Chloride 112 mmol/L (98-107); Estimated GFR 89; Glucose 99 mg/dL (83-110); Potassium 3.5 mmol/L (3.5-5.1); Sodium 140 mmol/L (136-145)
[2024-02-14] MEDS: Polyethylene Glycol 3350 17 GM Packet PO SCH (08:52)
[2024-02-14] MEDS: Bisacodyl 10 MG SUPP PR SCH (08:53)
[2024-02-14] MEDS: Docusate 100 MG CAP PO SCH (08:53)
[2024-02-14] MEDS: Cefepime 2 GM in Sodium Chloride 0.9% 100 ML IVPB SCH (15:47)
[2024-02-14] MEDS: Furosemide 20 MG TAB PO SCH (18:10)
[2024-02-15 06:03] LABS: #Basophils 0.03 10x3/uL (0.0-0.2); %Basophils 0.5 % (0.0-1.0); %Eosinophils 1.7 % (0.0-10.0); %Lymphocytes 12.4 % (21.0-51.0); %Monocytes 11.5 % (0.0-10.0); %Neutrophils 71.4 % (42.0-75.0); Hemoglobin 8.8 g/dL (14.0-18.0); Mean Corpuscular HGB CONC 33.8 g/dL (32.0-36.0); Mean Corpuscular Hemoglobin 29.1 pg (27.0-31.0); Mean Corpuscular Volume 86.1 fL (78.0-98.0); Mean Platelet Volume 9.6 fL (7.4-10.4); Platelet Count 161 10x3/uL (130-400); RBC Distribution Width 15.3 % (11.5-14.5); Red Blood Cell (RBC) Count 3.02 mill/uL (4.70-6.10)
[2024-02-15 06:05] LABS: Hematocrit 26.8 % (42.0-52.0); Hemoglobin 8.9 g/dL (14.0-18.0); Mean Corpuscular HGB CONC 33.2 g/dL (32.0-36.0); Mean Corpuscular Hemoglobin 28.9 pg (27.0-31.0); Mean Platelet Volume 9.5 fL (7.4-10.4); Platelet Count 159 10x3/uL (130-400); RBC Distribution Width 15.4 % (11.5-14.5); Red Blood Cell (RBC) Count 3.08 mill/uL (4.70-6.10)
[2024-02-15 06:13] LABS: Anion Gap 12 mmol/L (10-20); BUN (Urea Nitrogen) 14 mg/dL (8.4-25.7); Calc. Creatinine Clearance 105 mL/min (70-130); Calcium 7.1 mg/dL (7.8-10.44); Carbon Dioxide 20 mmol/L (23-31); Chloride 111 mmol/L (98-107); Estimated GFR 91; Glucose 96 mg/dL (83-110); Potassium 3.7 mmol/L (3.5-5.1); Sodium 139 mmol/L (136-145)
[2024-02-15] MEDS: Valsartan 80 MG TAB PO SCH (09:22)
[2024-02-15] MEDS: Furosemide 20 MG (2 mL) VIAL SLOW IVP SCH (13:19)
[2024-02-15] MEDS: Albuterol 2.5 MG (3 mL) NEB NEB PRN (13:36)
[2024-02-15] MEDS: traMADol HCl 50 MG TAB PO PRN (20:59)
[2024-02-15] MEDS: ALPRAZolam 0.25 MG TAB PO PRN (21:44)
[2024-02-16] MEDS: traMADol HCl 50 MG TAB PO PRN (00:18)
[2024-02-16 09:38] LABS: Anion Gap 9 mmol/L (10-20); BUN (Urea Nitrogen) 12 mg/dL (8.4-25.7); Calc. Creatinine Clearance 111 mL/min (70-130); Calcium 7.5 mg/dL (7.8-10.44); Carbon Dioxide 24 mmol/L (23-31); Chloride 107 mmol/L (98-107); Estimated GFR 93; Glucose 119 mg/dL (83-110); Potassium 3.9 mmol/L (3.5-5.1); Sodium 136 mmol/L (136-145)
[2024-02-16] MEDS: Polyethylene Glycol 3350 17 GM Packet PO SCH (16:14)
[2024-02-16] MEDS: Senokot S 8.6-50 MG TAB PO PRN (21:21)
[2024-02-16] MEDS: Melatonin 3 MG TAB PO PRN (21:21)
[2024-02-16] MEDS: Doxycycline 100 MG CAP PO SCH (21:22)
[2024-02-18 08:25] LABS: Hematocrit 27.2 % (42.0-52.0); Mean Corpuscular HGB CONC 33.1 g/dL (32.0-36.0); Mean Corpuscular Hemoglobin 28.7 pg (27.0-31.0); Mean Corpuscular Volume 86.6 fL (78.0-98.0); Mean Platelet Volume 10.1 fL (7.4-10.4); Platelet Count 171 10x3/uL (130-400); RBC Distribution Width 15.3 % (11.5-14.5); Red Blood Cell (RBC) Count 3.14 mill/uL (4.70-6.10)
[2024-02-18 09:02] LABS: Anion Gap 11 mmol/L (10-20); BUN (Urea Nitrogen) 12 mg/dL (8.4-25.7); Calc. Creatinine Clearance 111 mL/min (70-130); Calcium 7.5 mg/dL (7.8-10.44); Carbon Dioxide 23 mmol/L (23-31); Chloride 102 mmol/L (98-107); Estimated GFR 93; Glucose 101 mg/dL (83-110); Potassium 3.8 mmol/L (3.5-5.1); Sodium 132 mmol/L (136-145)
[2024-02-18 11:42] VITALS: BMI 28.7
[2024-02-18] MEDS: ALPRAZolam 0.5 MG TAB PO PRN (22:45)
[2024-02-19] MEDS: Pantoprazole DR 40 MG TAB PO SCH (09:04)
[2024-02-19] MEDS: Furosemide 20 MG TAB PO SCH (09:04)
[2024-02-19] MEDS: Polyethylene Glycol 3350 17 GM Packet PO SCH (09:05)
[2024-02-21 05:31] LABS: Hemoglobin 10.6 g/dL (14.0-18.0); Platelet Count 184 10x3/uL (130-400)
[2024-02-21] MEDS: Furosemide 20 MG TAB PO SCH (15:24)
[2024-02-21] MEDS: Melatonin 3 MG TAB PO PRN (20:50)
[2024-02-22 05:49] LABS: Anion Gap 13 mmol/L (10-20); BUN (Urea Nitrogen) 18 mg/dL (8.4-25.7); Calc. Creatinine Clearance 72 mL/min (70-130); Calcium 8.7 mg/dL (7.8-10.44); Carbon Dioxide 28 mmol/L (23-31); Chloride 99 mmol/L (98-107); Estimated GFR 79; Glucose 87 mg/dL (83-110); Potassium 4.4 mmol/L (3.5-5.1); Sodium 136 mmol/L (136-145)
[2024-02-22] MEDS: Furosemide 20 MG TAB PO SCH (14:28)
[2024-02-23 14:09] VITALS: BP 122/64; TEMP 98.2
== END 2024-02-23 13:36 | DRG 871 ==
LOC: CCU 15:47 → OBSVTOIN 18:28 → 2NO 02-12 21:22 → T4-A 02-22 16:12
PROVIDERS: ADMIT Internal Medicine; ATTEND Internal Medicine
PROC: 3E033XZ Introduction of Vasopressor into Peripheral Vein, Percutaneous Approach (ICD-10-PCS; principal; 2024-02-11)
PROC: 3E03329 Introduction of Other Anti-infective into Peripheral Vein, Percutaneous Approach (ICD-10-PCS; 2024-02-11)
DX: A41.9 Sepsis, unspecified organism (principal); G93.41 Metabolic encephalopathy; J18.9 Pneumonia, unspecified organism; R65.21 Severe sepsis with septic shock; N17.9 Acute kidney failure, unspecified; C79.51 Secondary malignant neoplasm of bone; E87.20 Acidosis, unspecified; I12.9 Hypertensive chronic kidney disease with stage 1 through stage 4 chronic kidney disease, or unspecified chronic kidney disease; Z66 Do not resuscitate; I95.9 Hypotension, unspecified; E78.5 Hyperlipidemia, unspecified; I48.0 Paroxysmal atrial fibrillation; N40.1 Benign prostatic hyperplasia with lower urinary tract symptoms; C61 Malignant neoplasm of prostate; N18.9 Chronic kidney disease, unspecified; Z88.2 Allergy status to sulfonamides; Z88.0 Allergy status to penicillin; Z88.8 Allergy status to other drugs, medicaments and biological substances; Z79.899 Other long term (current) drug therapy; Z79.2 Long term (current) use of antibiotics
CPT/HCPCS: 36415; 36416; 36600; 70450; 71045; 71275; 74018; 74177; 80048; 80053; 80202; 81001; 82533; 82565; 82805; 83605; 83735; 83880; 84100; 84145; 84484; 85018; 85025; 85027; 85049; 85379; 85610; 85730; 87040; 87081; 87086; 93005; 93010; 94640; 96374; 96375; 97139; J0692; J1720; J1885; J1940; J2405; J2470; J3370; J3475; J7030; J7512; J7611; P9047; Q9963; Q9967

== ENCOUNTER 2024-03-02 11:12 | Inpatient (IN) | payer MEDICARE ==
[~2024-03-02 11:12] MED LIST changes: -ISOVUE-370 76%-LOCM 1 ML ONE; +Iopamidol-370 76% 500 ML MDV (1 ML CHARGE) ONE
[2024-03-02 11:41] LABS: #Basophils Less than 0.03 10x3/uL (0.0-0.2); #Eosinophils Less than 0.03 10x3/uL (0.0-0.7); %Eosinophils 0.2 % (0.0-10.0); %Lymphocytes 6.7 % (21.0-51.0); %Monocytes 8.2 % (0.0-10.0); %Neutrophils 84.1 % (42.0-75.0); Hemoglobin 10.2 g/dL (14.0-18.0); Mean Corpuscular HGB CONC 32.9 g/dL (32.0-36.0); Mean Corpuscular Hemoglobin 29.1 pg (27.0-31.0); Mean Corpuscular Volume 88.3 fL (78.0-98.0); Mean Platelet Volume 9.3 fL (7.4-10.4); Platelet Count 233 10x3/uL (130-400); RBC Distribution Width 15.7 % (11.5-14.5); Red Blood Cell (RBC) Count 3.51 mill/uL (4.70-6.10)
[2024-03-02 11:54] LABS: INR-International Normal Ratio 1.7; PTT 43.9 sec (22.9-36.1); Prothrombin Time 20.4 sec (12.0-14.7)
[2024-03-02 12:03] LABS: ALT (SGPT) 7 U/L (8-55); AST (SGOT) 17 U/L (5-34); Albumin 2.8 g/dL (3.4-4.8); Alkaline Phosphatase 143 U/L (40-110); Anion Gap 14 mmol/L (10-20); BUN (Urea Nitrogen) 23 mg/dL (8.4-25.7); Bilirubin, Total 0.8 mg/dL (0.2-1.2); Calc. Creatinine Clearance 0 mL/min (70-130); Calcium 9.1 mg/dL (7.8-10.44); Carbon Dioxide 24 mmol/L (23-31); Chloride 97 mmol/L (98-107); Estimated GFR 84; Globulin 3.5 g/dL (2.4-3.5); Glucose 132 mg/dL (83-110); Lipase 24 U/L (8-78); Potassium 4.8 mmol/L (3.5-5.1); Protein, Total 6.3 g/dL (5.8-8.1); Sodium 130 mmol/L (136-145)
[2024-03-02 12:04] LABS: Troponin I Less than 0.010 ng/mL (< 0.028)
[2024-03-02] MEDS ORDERED: Pantoprazole 40 MG VIAL ONE (12:27)
[2024-03-02] MEDS ORDERED: Promethazine HCl 25 MG/ML VIAL ONE (12:29)
[2024-03-02 14:12] LABS: #Basophils Less than 0.03 10x3/uL (0.0-0.2); #Eosinophils Less than 0.03 10x3/uL (0.0-0.7); %Basophils 0.1 % (0.0-1.0); %Lymphocytes 7.4 % (21.0-51.0); %Monocytes 7.1 % (0.0-10.0); %Neutrophils 84.6 % (42.0-75.0); Hemoglobin 10.7 g/dL (14.0-18.0); Mean Corpuscular HGB CONC 32.4 g/dL (32.0-36.0); Mean Corpuscular Hemoglobin 28.8 pg (27.0-31.0); Mean Corpuscular Volume 88.9 fL (78.0-98.0); Mean Platelet Volume 9.6 fL (7.4-10.4); Platelet Count 269 10x3/uL (130-400); RBC Distribution Width 15.9 % (11.5-14.5); Red Blood Cell (RBC) Count 3.71 mill/uL (4.70-6.10)
[2024-03-02] MEDS ORDERED: Acetaminophen 325 MG TAB PO PRN (15:34)
[2024-03-02] MEDS ORDERED: Amlodipine 10 MG TAB PO SCH (21:00)
[2024-03-02] MEDS: Sodium Chloride 0.9% 1,000 ML IV SCH (22:23)
[2024-03-02] MEDS: Pantoprazole 40 MG VIAL IVP SCH (22:24)
[2024-03-02] MEDS: Dronedarone HCl 400 MG TAB PO SCH (22:24)
[2024-03-02] MEDS: Tamsulosin HCl 0.4 MG CAP PO SCH (22:24)
[2024-03-02] MEDS: Simvastatin 10 MG TAB PO SCH (22:24)
[2024-03-03] MEDS: Famotidine/PF 20 mg/2ml Vial SLOW IVP SCH (00:27)
[2024-03-03 02:09] VITALS: BMI 24.3
[2024-03-03 04:47] LABS: #Basophils Less than 0.03 10x3/uL (0.0-0.2); #Eosinophils Less than 0.03 10x3/uL (0.0-0.7); %Lymphocytes 10.9 % (21.0-51.0); %Monocytes 11.1 % (0.0-10.0); %Neutrophils 77.1 % (42.0-75.0); Hematocrit 27.4 % (42.0-52.0); Mean Corpuscular HGB CONC 32.8 g/dL (32.0-36.0); Mean Corpuscular Hemoglobin 28.1 pg (27.0-31.0); Mean Corpuscular Volume 85.6 fL (78.0-98.0); Mean Platelet Volume 9.7 fL (7.4-10.4); Platelet Count 262 10x3/uL (130-400); RBC Distribution Width 15.7 % (11.5-14.5)
[2024-03-03 04:50] LABS: Anion Gap 14 mmol/L (10-20); BUN (Urea Nitrogen) 33 mg/dL (8.4-25.7); Calc. Creatinine Clearance 71 mL/min (70-130); Calcium 8.4 mg/dL (7.8-10.44); Carbon Dioxide 23 mmol/L (23-31); Chloride 101 mmol/L (98-107); Estimated GFR 83; Glucose 116 mg/dL (83-110); Potassium 4.7 mmol/L (3.5-5.1); Sodium 133 mmol/L (136-145)
[2024-03-03] MEDS ORDERED: PROPOFOL 20 ML ONE ×2 (08:39→09:50)
[2024-03-03] MEDS ORDERED: Lidocaine 1% PF 5 ML VIAL ONE (08:41)
[2024-03-03] MEDS ORDERED: fentaNYL 50 mcg/mL 1 mL Vial ONE (09:31)
[2024-03-03] MEDS ORDERED: EPINEPHrine 1 MG/10 ML Abboject SYRINGE ONE (10:01)
[2024-03-03 11:33] VITALS: BMI 24.3
[2024-03-03] MEDS: Pregabalin 50 MG CAP PO SCH ×2 (14:01→21:15)
[2024-03-03] MEDS ORDERED: traMADol HCl 50 MG TAB PO PRN (19:52)
[2024-03-03] MEDS ORDERED: Melatonin 3 MG TAB PO PRN (19:53)
[2024-03-03] MEDS ORDERED: Milk Of Magnesia 30 ML UDCUP PO PRN (20:19)
[2024-03-03] MEDS ORDERED: oxyCODONE 5 MG TAB PO PRN (20:44)
[2024-03-03] MEDS: oxyCODONE 5 MG TAB PO SCH (21:16)
[2024-03-03] MEDS: busPIRone HCl 5 MG TAB PO SCH (21:16)
[2024-03-03] MEDS: Melatonin 3 MG TAB PO SCH (21:16)
[2024-03-03] MEDS: Senokot S 8.6-50 MG TAB PO SCH (21:17)
[2024-03-03] MEDS: Spironolactone 25 MG TAB PO SCH (21:17)
[2024-03-03] MEDS: Acetaminophen 500 MG TAB PO SCH (21:17)
[2024-03-03] MEDS: Fish Oil 1,000 MG CAP PO SCH (21:27)
[2024-03-04] MEDS: Polyethylene Glycol 3350 17 GM Packet PO SCH (08:40)
[2024-03-04] MEDS: Amlodipine 5 MG TAB PO SCH (08:41)
[2024-03-04] MEDS: Loratadine 10 MG TAB PO SCH (08:41)
[2024-03-04 08:53] LABS: #Basophils Less than 0.03 10x3/uL (0.0-0.2); %Basophils 0.4 % (0.0-1.0); %Eosinophils 1.3 % (0.0-10.0); %Lymphocytes 15.8 % (21.0-51.0); %Monocytes 12.4 % (0.0-10.0); %Neutrophils 69.5 % (42.0-75.0); Hemoglobin 8.1 g/dL (14.0-18.0); Mean Corpuscular HGB CONC 32.4 g/dL (32.0-36.0); Mean Corpuscular Hemoglobin 28.1 pg (27.0-31.0); Mean Corpuscular Volume 86.8 fL (78.0-98.0); Mean Platelet Volume 9.2 fL (7.4-10.4); Platelet Count 223 10x3/uL (130-400); RBC Distribution Width 16.2 % (11.5-14.5); Red Blood Cell (RBC) Count 2.88 mill/uL (4.70-6.10)
[2024-03-04] MEDS ORDERED: Ergocalciferol 1.25 MG(50,000 UNITS) CAP PO SCH (09:00)
[2024-03-04 09:12] LABS: Anion Gap 11 mmol/L (10-20); BUN (Urea Nitrogen) 25 mg/dL (8.4-25.7); Calc. Creatinine Clearance 74 mL/min (70-130); Calcium 7.7 mg/dL (7.8-10.44); Carbon Dioxide 22 mmol/L (23-31); Chloride 108 mmol/L (98-107); Estimated GFR 84; Glucose 118 mg/dL (83-110); Potassium 4.2 mmol/L (3.5-5.1); Sodium 137 mmol/L (136-145)
[2024-03-04] MEDS: traMADol HCl 50 MG TAB PO PRN (17:27)
[2024-03-05 04:32] LABS: #Basophils Less than 0.03 10x3/uL (0.0-0.2); %Basophils 0.3 % (0.0-1.0); %Eosinophils 3.6 % (0.0-10.0); %Lymphocytes 20.4 % (21.0-51.0); %Monocytes 12.4 % (0.0-10.0); %Neutrophils 62.3 % (42.0-75.0); Hematocrit 22.3 % (42.0-52.0); Hemoglobin 7.2 g/dL (14.0-18.0); Mean Corpuscular HGB CONC 32.3 g/dL (32.0-36.0); Mean Corpuscular Hemoglobin 28.6 pg (27.0-31.0); Mean Corpuscular Volume 88.5 fL (78.0-98.0); Mean Platelet Volume 9.4 fL (7.4-10.4); Platelet Count 202 10x3/uL (130-400); RBC Distribution Width 16.3 % (11.5-14.5); Red Blood Cell (RBC) Count 2.52 mill/uL (4.70-6.10)
[2024-03-05 04:46] LABS: Anion Gap 9 mmol/L (10-20); BUN (Urea Nitrogen) 19 mg/dL (8.4-25.7); Calc. Creatinine Clearance 83 mL/min (70-130); Calcium 7.1 mg/dL (7.8-10.44); Carbon Dioxide 21 mmol/L (23-31); Chloride 108 mmol/L (98-107); Estimated GFR 87; Glucose 93 mg/dL (83-110); Potassium 4.1 mmol/L (3.5-5.1); Sodium 134 mmol/L (136-145)
[2024-03-05] MEDS: Glycerin Adult Supp. (12 ct jar) PR PRN (14:57)
[2024-03-06 04:37] LABS: #Basophils Less than 0.03 10x3/uL (0.0-0.2); %Basophils 0.4 % (0.0-1.0); %Eosinophils 3.8 % (0.0-10.0); %Lymphocytes 16.5 % (21.0-51.0); %Monocytes 11.4 % (0.0-10.0); %Neutrophils 66.6 % (42.0-75.0); Hematocrit 23.1 % (42.0-52.0); Hemoglobin 7.3 g/dL (14.0-18.0); Mean Corpuscular HGB CONC 31.6 g/dL (32.0-36.0); Mean Corpuscular Hemoglobin 28.7 pg (27.0-31.0); Mean Corpuscular Volume 90.9 fL (78.0-98.0); Mean Platelet Volume 8.9 fL (7.4-10.4); Platelet Count 178 10x3/uL (130-400); RBC Distribution Width 16.2 % (11.5-14.5); Red Blood Cell (RBC) Count 2.54 mill/uL (4.70-6.10)
[2024-03-06 04:57] LABS: Anion Gap 12 mmol/L (10-20); BUN (Urea Nitrogen) 16 mg/dL (8.4-25.7); Calc. Creatinine Clearance 85 mL/min (70-130); Calcium 7.2 mg/dL (7.8-10.44); Carbon Dioxide 21 mmol/L (23-31); Chloride 106 mmol/L (98-107); Estimated GFR 87; Glucose 92 mg/dL (83-110); Potassium 4.1 mmol/L (3.5-5.1); Sodium 135 mmol/L (136-145)
[2024-03-07 08:11] LABS: #Basophils Less than 0.03 10x3/uL (0.0-0.2); %Basophils 0.1 % (0.0-1.0); %Eosinophils 0.5 % (0.0-10.0); %Monocytes 7.8 % (0.0-10.0); Hemoglobin 8.4 g/dL (14.0-18.0); Mean Corpuscular HGB CONC 31.1 g/dL (32.0-36.0); Mean Corpuscular Hemoglobin 28.6 pg (27.0-31.0); Mean Corpuscular Volume 91.8 fL (78.0-98.0); Mean Platelet Volume 9.7 fL (7.4-10.4); Platelet Count 210 10x3/uL (130-400); RBC Distribution Width 16.6 % (11.5-14.5); Red Blood Cell (RBC) Count 2.94 mill/uL (4.70-6.10)
[2024-03-07 08:25] LABS: Anion Gap 12 mmol/L (10-20); BUN (Urea Nitrogen) 16 mg/dL (8.4-25.7); Calc. Creatinine Clearance 77 mL/min (70-130); Calcium 7.5 mg/dL (7.8-10.44); Carbon Dioxide 20 mmol/L (23-31); Chloride 104 mmol/L (98-107); Estimated GFR 84; Glucose 99 mg/dL (83-110); Potassium 4.3 mmol/L (3.5-5.1); Sodium 132 mmol/L (136-145)
[2024-03-07] MEDS ORDERED: Polyethylene Glycol 3350 17 GM Packet PO PRN (16:32)
[2024-03-08 05:37] LABS: #Basophils Less than 0.03 10x3/uL (0.0-0.2); %Basophils 0.1 % (0.0-1.0); %Eosinophils 0.4 % (0.0-10.0); %Lymphocytes 9.1 % (21.0-51.0); %Monocytes 8.8 % (0.0-10.0); %Neutrophils 80.6 % (42.0-75.0); Hematocrit 25.2 % (42.0-52.0); Mean Corpuscular HGB CONC 31.7 g/dL (32.0-36.0); Mean Corpuscular Hemoglobin 27.9 pg (27.0-31.0); Mean Corpuscular Volume 87.8 fL (78.0-98.0); Mean Platelet Volume 9.6 fL (7.4-10.4); Platelet Count 223 10x3/uL (130-400); RBC Distribution Width 16.6 % (11.5-14.5); Red Blood Cell (RBC) Count 2.87 mill/uL (4.70-6.10)
[2024-03-08 05:51] LABS: Anion Gap 12 mmol/L (10-20); BUN (Urea Nitrogen) 17 mg/dL (8.4-25.7); Calc. Creatinine Clearance 75 mL/min (70-130); Calcium 7.4 mg/dL (7.8-10.44); Carbon Dioxide 20 mmol/L (23-31); Chloride 107 mmol/L (98-107); Estimated GFR 83; Glucose 112 mg/dL (83-110); Potassium 4.2 mmol/L (3.5-5.1); Sodium 135 mmol/L (136-145)
[2024-03-09 12:36] VITALS: BP 116/64; TEMP 97.7
== END 2024-03-09 14:00 | DRG 369 ==
LOC: ERS 11:12 → ERHOLD 15:09 → 2NO 20:40 → MSONC 03-04 22:18
PROVIDERS: ADMIT Internal Medicine; ATTEND Hospitalist
PROC: 0W3P8ZZ Control Bleeding in Gastrointestinal Tract, Via Natural or Artificial Opening Endoscopic (ICD-10-PCS; principal; 2024-03-03)
DX: K21.01 Gastro-esophageal reflux disease with esophagitis, with bleeding (principal); D62 Acute posthemorrhagic anemia; G93.40 Encephalopathy, unspecified; I48.91 Unspecified atrial fibrillation; K59.00 Constipation, unspecified; C61 Malignant neoplasm of prostate; I10 Essential (primary) hypertension; Z66 Do not resuscitate; N40.0 Benign prostatic hyperplasia without lower urinary tract symptoms; E78.5 Hyperlipidemia, unspecified; K21.9 Gastro-esophageal reflux disease without esophagitis; Z88.2 Allergy status to sulfonamides; Z88.0 Allergy status to penicillin; Z88.8 Allergy status to other drugs, medicaments and biological substances; Z92.21 Personal history of antineoplastic chemotherapy; Z79.01 Long term (current) use of anticoagulants; Z91.018 Allergy to other foods; Z90.49 Acquired absence of other specified parts of digestive tract; Z85.828 Personal history of other malignant neoplasm of skin; Z87.891 Personal history of nicotine dependence
CPT/HCPCS: 36415; 36416; 70450; 71045; 74177; 80048; 80053; 83690; 84484; 85025; 85610; 85730; 86850; 86900; 86901; 93005; 96374; 96375; 97139; J0171; J2470; J2550; J2704; J3010; J3490; J7030; Q9967